=== PATIENT | female | born 1970 | race Caucasian/White ===

== ENCOUNTER 2023-03-23 13:35 | Inpatient (IN) | payer OTHER, SELFPAY ==
[2023-03-23 10:16] VITALS: BMI 35.4
[2023-03-23 10:24] VITALS: BP 130/94
--- NOTE | 2023-03-23 10:46 | ED.GENMED ---
History of Present Illness
<Bebe Cantu PA-C - Last Filed: 03/23/23 13:25>
General
Chief Complaint: Skin Problem
Source: patient
Exam Limitations: none
Time Seen by Provider: 03/23/23 10:45
Nursing documentation reviewed up to this point in time: agreed with
Travel History
Have you had any contact with someone who has COVID-19?: No
Do you have any symptoms of coronavirus? Fever > 100 degrees, chills, cough, shortness of breath, sore throat, loss of taste or smell, muscle aches, or headache?: No
History of Present Illness
History of Present Illness:
This is a 53-year-old female with a past medical history of CVA, insulin-dependent diabetes, diabetic neuropathy who presents to the emergency department today with a right foot wound the past 2 weeks. Patient has disability from previous stroke,
present with patient who provides history. states that wound started two weeks ago as a small abscess on the top surface of the foot and was originally treated with topical antibiotic cream. Mother reports that patient frequently
has been picking at the wound and dogs at home have the wound frequently. Wound has continued to progress despite topical therapy, has been here the ER doctor started Augmentin. Patient is on day 4 or 5 of Augmentin. The wound has continued to
progress and now involves the toe. There has been no drainage from the wound. Patient has no fevers or chills, and nausea or vomiting, abdominal pain, no systemic signs or symptoms. Patient does state that it is painful. Patient has had no
difficulties with ambulation. Patient does have history of lower extremity diabetic wounds in the past, for which she had to be debrided by vascular in the OR. However, upon workup, patient does not have significant vascular disease.
Past History
<Bebe Cantu PA-C - Last Filed: 03/23/23 13:25>
Past History
ED Past Medical History: Asthma, CVA, GERD, HTN, NIDDM and Other (Peptic ulcer disease, bowel obstruction, hyperparathyroidism, non healing wound LLE)
ED Past Surgical History: Appendectomy, Cholecystectomy, and Other (Lysis of adhesions, 2002 hernia repair with mesh, 2006 mesh removed,)
Patient has exhibited threatening behavior?: No
PSI?: No
Social History
Tobacco: Non-smoker
Alcohol: None
Drug: None
Personal:
Living: with family
Employment: Not employed
Family History
Family History: Other (Noncontributory)
Review of Systems
<Bebe Cantu PA-C - Last Filed: 03/23/23 13:25>
Review of Systems
All Other Systems: ROS reviewed and negative except as documented in HPI and ROS
Phy Exam
<Bebe Cantu PA-C - Last Filed: 03/23/23 13:25>
Physical Exam
Physical Exam:
Vitals: VSS
General: patient well appearing, in no acute distress
Skin: There is a 1 cm ulcerated lesion on the dorsum of the right foot with a surrounding ring of erythema extending up to the 2rd toe where there is an area of necrosis and skin breakdown in the webspace. No active drainage.
Cardiac: regular rate
Pulm: normal respiratory effort
Musculoskeletal/Periperal Vascular: No point tenderness to palpation of the lateral/medial malleolus or metatarsals of the right foot, tenderness with passive range of motion of right second toe. 2+ right DP/PT pulses. No lower extremity edema.
Neuro: awake and alert, some confusion and limited speech at baseline due to deficits from previous stroke. No new focal neurologic deficit.
Course
<Bebe Cantu PA-C - Last Filed: 03/23/23 13:25>
Orders/Labs/Results
Orders:
Orders
03/23/23 11:10
CR Foot - Right Min 3 Views Urgent
Comment:
Reason For Exam: right foot pain, rapidly progressing wound
03/23/23 11:11
Piperacillin/Tazo 3.375 Gram [Zosyn] 3.375 gram in 50 ml IV NOW
Vancomycin [Vancocin] 1,250 mg 0.9% Sodium Chloride 250 ml [Nss] 250 ml IV NOW
03/23/23 11:23
CRP [C-Reactive Protein] Stat
Complete Blood Count/With Diff Urgent
Comprehensive Metabolic Panel Urgent
ESR [Erythrocyte Sed Rate] Stat
Lactic Acid Urgent
03/23/23 11:24
Wound Culture [Wound/Abscess/Other Culture] Urgent
LEO Source: Toe
Specimen Description:
Date Specimen was Collected: 03/23/23
Time Specimen was Collected: 11:23
03/23/23 12:03
Vancomycin [Vancocin] 2,000 mg 0.9% Sodium Chloride 500 ml [Nss] 500 ml IV NOW
03/23/23 12:38
Blood Culture Q30M
LEO Source: Blood/Venous
Specimen Description:
Blood Culture Q30M
LEO Source: Blood/Venous
Specimen Description:
03/23/23 13:27
Admit/Transfer Patient As Directed
Co-Sign Provider:
Level of Care: Inpatient admission
Assign to:: Medical/Surgical
Physician / Group: xavier mcgraw
Diagnosis: diabetic wound
Reason for Hospitalization: diabectic wound
Expected length of stay greater than two midnights?: Yes
ELOS- Estimated Length of Stay in days: 3
I certify the patient meets the requirements for IP care: Yes
EKG [Electrocardiogram (*1)] Stat
Reason for Study: Atrial Fibrillation
03/23/23 13:29
Code Status As Directed
Resuscitation Status: Full Code
Abnormal Lab Results
03/23/23
11:23
Hgb 11.1 L g/dL
(12.0-16.0)
Hct 33.6 L %
(37.0-47.0)
MCV 78.0 L fL
(81.0-99.0)
MCH 25.8 L pg
(27.0-31.0)
RDW 14.6 H %
(11.5-14.5)
MPV 10.5 H fL
(7.4-10.4)
Lymphocytes % 17.0 L %
(20.5-51.1)
ESR 41 H mm/hour
(0-20)
Glucose 131 H mg/dl
(70-99)
Calcium 10.3 H mg/dl
(8.4-10.2)
C-Reactive Protein 27.50 H mg/L
(0.0-10.00)
03/23/23 11:23
03/23/23 11:23
Vital Signs
Initial and Last Documented VS:
Initial Vital Signs
Temp Pulse Resp BP Pulse Ox
98.0 F 85 16 130/94 96
03/23/23 10:24 03/23/23 10:24 03/23/23 10:24 03/23/23 10:24 03/23/23 10:24
Last Documented Vital Signs
Temp Pulse Resp BP Pulse Ox
98.0 F 85 16 130/94 96
03/23/23 10:24 03/23/23 10:24 03/23/23 10:24 03/23/23 10:24 03/23/23 10:24
<Louis Baldwin, DO - Last Filed: 03/23/23 15:15>
Orders/Labs/Results
Orders:
Orders
03/23/23 11:10
CR Foot - Right Min 3 Views Urgent
Comment:
Reason For Exam: right foot pain, rapidly progressing wound
03/23/23 11:11
Piperacillin/Tazo 3.375 Gram [Zosyn] 3.375 gram in 50 ml IV NOW
Vancomycin [Vancocin] 1,250 mg 0.9% Sodium Chloride 250 ml [Nss] 250 ml IV NOW
03/23/23 11:23
CRP [C-Reactive Protein] Stat
Complete Blood Count/With Diff Urgent
Comprehensive Metabolic Panel Urgent
ESR [Erythrocyte Sed Rate] Stat
Lactic Acid Urgent
03/23/23 11:24
Wound Culture [Wound/Abscess/Other Culture] Urgent
LEO Source: Toe
Specimen Description:
Date Specimen was Collected: 03/23/23
Time Specimen was Collected: 11:23
03/23/23 12:03
Vancomycin [Vancocin] 2,000 mg 0.9% Sodium Chloride 500 ml [Nss] 500 ml IV NOW
03/23/23 12:38
Blood Culture Q30M
LEO Source: Blood/Venous
Specimen Description:
Blood Culture Q30M
LEO Source: Blood/Venous
Specimen Description:
03/23/23 13:27
Admit/Transfer Patient As Directed
Co-Sign Provider:
Level of Care: Inpatient admission
Assign to:: Medical/Surgical
Physician / Group: xavier mcgraw
Diagnosis: diabetic wound
Reason for Hospitalization: diabectic wound
Expected length of stay greater than two midnights?: Yes
ELOS- Estimated Length of Stay in days: 3
I certify the patient meets the requirements for IP care: Yes
EKG [Electrocardiogram (*1)] Stat
Reason for Study: Atrial Fibrillation
03/23/23 13:29
Code Status As Directed
Resuscitation Status: Full Code
Abnormal Lab Results
03/23/23
11:23
Hgb 11.1 L g/dL
(12.0-16.0)
Hct 33.6 L %
(37.0-47.0)
MCV 78.0 L fL
(81.0-99.0)
MCH 25.8 L pg
(27.0-31.0)
RDW 14.6 H %
(11.5-14.5)
MPV 10.5 H fL
(7.4-10.4)
Lymphocytes % 17.0 L %
(20.5-51.1)
ESR 41 H mm/hour
(0-20)
Glucose 131 H mg/dl
(70-99)
Calcium 10.3 H mg/dl
(8.4-10.2)
C-Reactive Protein 27.50 H mg/L
(0.0-10.00)
03/23/23 11:23
03/23/23 11:23
Vital Signs
Initial and Last Documented VS:
Initial Vital Signs
Temp Pulse Resp BP Pulse Ox
98.0 F 85 16 130/94 96
03/23/23 10:24 03/23/23 10:24 03/23/23 10:24 03/23/23 10:24 03/23/23 10:24
Last Documented Vital Signs
Temp Pulse Resp BP Pulse Ox
98.0 F 85 16 130/94 96
03/23/23 10:24 03/23/23 10:24 03/23/23 10:24 03/23/23 10:24 03/23/23 10:24
<Bebe Cantu PA-C - Last Filed: 03/23/23 13:25>
MDM/Problems Addressed
Differential Diagnosis Includes:
ddx include cellulitis, diabetic ulcer, peripheral arterial disease, peripheral venous disease, osteomyletitis
MDM/Problems Addressed:
foot wound
Chronic conditions affecting care: DM, HTN and Neurological disorder (previous CVA)
Acute Exacerbation and/or Progression of Chronic Illness: DM
<Bebe Cantu PA-C - Last Filed: 03/23/23 13:25>
*Pulse Oximetry
Patient hypoxic: no
*Critical Care Note
Total Time (30-74mins, 75-104mins- exclusive of procedures): Not Applicable
Data Reviewed
Review of Other/Old Records Reveals: Records (Reviewed ER physician documentation from 05/12/2022) and Discharge Summary (Reviewed discharge summary from 03/16/2029)
Source: patient
<Bebe Cantu PA-C - Last Filed: 03/23/23 13:25>
Patient Management
Escalation/DeEscalation of care consider admission/obs:
This is a 53-year-old female with past medical history of insulin-dependent diabetes, stroke who is presenting emergency department today with right foot wound for the past 2 weeks. The wound extends to the second toe are necrotic lesions present.
The wound has been rapidly progressing despite topical antibiotics, and Augmentin. She is on day 5 of Augmentin. She has had wounds in the past on the lower extremity that have required surgical debridement. Considering wound failing outpatient
therapy, will plan to admit for IV antibiotics.
ED Attending Note
<Bebe Cantu PA-C - Last Filed: 03/23/23 13:25>
-
Portions of this chart may have been created with voice recognition software.� Occasional wrong word or��sound alike� substitutions may have occurred due to the inherent limitations of voice recognition software.
<Louis Baldwin DO - Last Filed: 03/23/23 15:15>
ED Attending Note
Patient seen and examined by attending physician: Yes
I performed the substantive portion of visit, reviewed & personally made and approve the management plan that is documented in note by myself or ANGELIA.: Yes
I performed a history and physical exam of patient and discussed management with resident, I reviewed resident's note and agree with documented findings and plan of care.: Yes
ED Attending Note:
I eval'd at bedside. Patient has had debridement with vascular surgery in the past of the left lower extremity. Today, she comes in because of comfort at the right foot/concern for infection. Her who is a physician placed her on topical
antibiotics and then has had 4 days of Augmentin. She has cellulitic changes along with a necrotic appearing right second toe dorsally. Will admit for broad-spectrum IV antibiotic diabetic foot infection.
Discharge Plan
Departure
Patient Disposition: Admit
Date of Disposition: 03/23/23
Time of Disposition: 12:01
Admit to: Med/Surg
Presentation/result/management discussed w/ accepting MD/DO: Hospitalist
Patient with high blood pressure during this ER visit?: Yes
Condition: Fair
Discharge Problem:
Diabetic foot infection
Interventions
Interventions:
*Risk Screen - Suicide Last Done: 03/23/23 11:30
*General Assessment Last Done: 03/23/23 11:30
*Neglect/Abuse Screening Last Done: 03/23/23 11:30
*ED COVID-19 Vaccine History Last Done: 03/23/23 10:24
ED-Skin Assessment Last Done: 03/23/23 11:30
[2023-03-23 11:35] LABS: % Basophils 0.8 % (0-2); % Eosinophils 3.8 % (0-6); % Immature Granulocytes 0.3 % (0-0.5); % Monocytes 8.6 % (1.7-9.3); % Neutrophils 69.5 % (42.2-75.2); Absolute Basophils 0.1 10^3/uL (0-0.2); Absolute Eosinophils 0.3 10^3/uL (0-0.7); Absolute Lymphocytes 1.3 10^3/uL (1.2-3.4); Absolute Monocytes 0.6 10^3/uL (0.1-0.6); Absolute Neutrophils 5.2 10^3/uL (1.4-6.5); Hematocrit 33.6 % (37.0-47.0); Hemoglobin 11.1 g/dL (12.0-16.0); Mean Corpuscular Hgb 25.8 pg (27.0-31.0); Mean Platelet Volume 10.5 fL (7.4-10.4); Nucleated Red Blood Cells % 0 %; Platelet Count 272 10^3/uL (130-400); Red Blood Cell Count 4.31 10^6/uL (4.20-5.40); Red Cell Dist. Width 14.6 % (11.5-14.5); White Blood Cell Count 7.5 10^3/uL (4.8-10.8)
[2023-03-23 11:45] LABS: Lactic Acid 1.3 mmol/L (0.7-2.0)
[2023-03-23 11:46] LABS: ALT (SGPT) 13 U/L (0-35); AST (SGOT) 18 U/L (14-36); Albumin 3.9 g/dl (3.5-5.0); Alkaline Phosphatase 126 U/L (38-126); Blood Urea Nitrogen 14 mg/dl (7-17); Calcium 10.3 mg/dl (8.4-10.2); Carbon Dioxide 27 mmol/L (22-30); Chloride 105 mmol/L (98-107); Glucose 131 mg/dl (70-99); Potassium 4.2 mmol/L (3.5-5.1); Sodium 137 mmol/L (135-145); Total Bilirubin 0.9 mg/dl (0.2-1.3); Total Protein 6.5 g/dl (6.3-8.2); eGFR > 60.00
[2023-03-23] MEDS: ZOSYN 50 IV ×2 (11:58→17:13)
[2023-03-23] MEDS: VANCOCIN 540 MG IV (12:40)
--- NOTE | 2023-03-23 12:56 | HPS.HSE ---
Addendum entered and electronically signed by Venkatesh Hoffman MD 03/23/23 16:10:
53-year-old female with a past medical history of paroxysmal atrial fibrillation on Eliquis, CVA with residual short-term memory loss, type 2 diabetes, hypertension, peptic ulcer disease, and hyperparathyroidism presents with worsening erythema and
swelling of her right third toe despite 4 days of Augmentin.
Patient was given Zosyn and vancomycin in the ER. Patient became red and itchy while getting the vancomycin.
Will discontinue vancomycin, give Benadryl and Pepcid. Hold off on steroids due to her probable right third toe infection.
Continue Zosyn, add doxycycline.
CRP 27.5, ESR 41, right foot x-ray negative for osteomyelitis.
Will order Seroquel and Haldol for agitation. Avoid benzos, as this will worsen her agitation.
I have personally seen and examined the patient, and agree with the plan of care as documented by MICA Roman.
Advance care planning discussed, patient is a full code.
All other issues as outlined by the advanced care practitioner.
Total time spent to see the patient on the floor, examine the patient, review data and lab results, discuss treatment plan with patient, nursing staff around 75 minutes.
Original Note:
Family Physician
-
Family Physician: Dwight Tovar
Chief Complaint
-
Right foot wound
History of Present Illness
53-year-old female with a past medical history of CVA, insulin-dependent diabetes, diabetic neuropathy, A-fib, GERD, asthma, small bowel obstruction who presents to the emergency department today with a right foot wound the past 2 weeks.� Patient
has disability from previous stroke, present with patient who provides history.� states that wound started two weeks ago as a small scab on the top surface of the foot and was originally treated with topical antibiotic cream.�patient
frequently picks on the wound. she took 4 out of 5 Augmentin. denied fever, chill, chest pain, sob. no improvement in wound.The wound has continued to progress and now involves the toe.�denied nausea or vomiting, abdominal pain. denied dysuria or
hematuria.
patient with hxt of CVA does residual with memory. she sundown's at night time. she is extremely difficult at night time.
patient imitated on abx. admitting for further management.
Medical History
Past Medical History
Past Medical History: Reports Other
Additional Past Medical History:
Asthma
CVA
GERD
Hypertension
Type 2 diabetes
Peptic ulcer disease
Small bowel obstruction
Hyperparathyroidism
Nonhealing left lower extremity wound
Atrial fibrillation
Past Surgical History: Reports Other
Additional Past Surgical History:
Appendectomy
Cholecystectomy
Lysis of adhesion
Hernia repair with mesh
Social History
Tobacco: Non-smoker
Alcohol: None
Drug: None
Personal:
Living: With Family
Family History
Family History: Not pertinent
Allergies / Home Medications
Allergies reflects when Allergies were last updated in [facility].
Home Medications with original date entered in [facility]
Allergy/Medication List:
Allergies
Allergy/AdvReac Type Severity Reaction Status Date / Time
cefuroxime Allergy Hives Verified 03/23/23 10:25
cefuroxime axetil Allergy Hives Verified 03/23/23 10:25
[From Ceftin]
cephalexin monohydrate Allergy Hives Verified 03/23/23 10:25
[From Keflex]
erythromycin base Allergy Hives Verified 03/23/23 10:25
morphine Allergy Itching Verified 03/23/23 10:25
oxycodone [From Percocet] Allergy Nausea / Verified 03/23/23 10:25
Vomiting
Home Medications
albuterol sulfate 90 mcg/actuation aerosol inhaler 2 puff inhalation R Q6HPRN PRN sob ##0 05/21/21
atorvastatin 40 mg tablet 40 mg PO QPM High cholesterol 05/21/21
metformin 1,000 mg tablet 1,000 mg PO BID@0800,1700 Diabetes 05/21/21
pantoprazole 20 mg tablet,delayed release (Protonix) 20 mg PO DAILY Gastrointestinal issue 05/21/21
duloxetine 30 mg capsule,delayed release 30 mg PO QPM Mental Health/Anxiety 10/25/21
dupilumab 300 mg/2 mL subcutaneous pen injector (Dupixent) 300 mg SC WEEKLY Lung/breathing issues 10/25/21
lisinopril 10 mg tablet 10 mg PO Daily Blood pressure 10/25/21
glipizide 5 mg tablet 5 mg PO DAILY #30 tabs 03/16/22
amoxicillin 875 mg-potassium clavulanate 125 mg tablet 1 tab PO BID 03/23/23
apixaban 5 mg tablet (Eliquis) 5 mg PO BID 03/23/23
memantine 10 mg tablet 10 mg PO QPM 03/23/23
metoprolol succinate 25 mg tablet,extended release 24 hr (Toprol XL) 25 mg PO DAILY 03/23/23
Review of Systems
-
Constitutional: Reports No Symptoms
EENT: Reports No Symptoms
Respiratory: Reports No Symptoms
Cardiac: Reports No Symptoms
Abdomen/GI: Reports No Symptoms
: Reports No Symptoms
Musculoskeletal: Reports No Symptoms
Skin: Reports Other (Right foot wound)
Neurological: Reports No Symptoms
Endocrine: Reports No Symptoms
Hematologic/Lymphatic: Reports No Symptoms
Psych: Reports No Symptoms
Physical Exam
Vital Signs
Vital Signs
Temp Pulse Resp BP Pulse Ox
98.0 F 85 16 130/94 96
03/23/23 10:24 03/23/23 10:24 03/23/23 10:24 03/23/23 10:24 03/23/23 10:24
Physical Exam
General: Well Developed, Well Nourished and No Apparent Distress
HEENT: NormoCephalic, Moist mucous membranes and Atraumatic
Respiratory: Clear
Cardiac: S1/S2 and Regular Rhythm; No Murmur or Rub
GI: Soft, Non Tender, Non Distended and Normal Bowel Sounds; No Organomegaly
Rectal: Deferred by Provider
Musculoskeletal: No Clubbing, No Cyanosis and No Edema
Skin: Rash and Other (Right foot wound to 2)
Neuro: AO x 3 and Nonfocal/grossly intact
Psych: Calm
Laboratory Results
-
03/23/23 11:23
03/23/23 11:
Laboratory Results
Lactic Acid 1.3 mmol/L (0.7-2.0) 03/23/23 11:
Total Bilirubin 0.9 mg/dl (0.2-1.3) 03/23/23 11:
AST 18 U/L (14-36) 03/23/23 11:
ALT 13 U/L (0-35) 03/23/23 11:23
Alkaline Phosphatase 126 U/L (38-126) 03/23/23 11:23
Data Reviewed
-
Lab Data: Labs Reviewed by me
Impression/Plan
-
# Diabetic foot wound
-Failed outpatient therapy
-IV Vanco and Zosyn
-Foot x-ray with Minimal osteoarthritis of interphalangeal joint of the right great toe.
-Blood and wound culture sent from ER
-Tylenol prn for fever
-obtain ESR, CRP, consider MRI if elevated inflammatory markers
-wound ostomy consulted
#Aphasia post stroke/ memory loss/sundown
-daughter will stay at the bedside
-Memantine
# GERD
-PPI continued
# PMH IDDM Diabetes
-�follow blood sugars, continue SSI
-metformin continued
-Glipizide
# Essential hypertension
-Blood pressure stable
-Lisinopril continued
#hxt of recurrent SBO - ex lap, explantation of mesh, FIORDALIZA
# History of paroxysmal A-fib A-fib
-Will obtain EKG
-Eliquis, metoprolol
# History of asthma
-Not in acute exacerbation
-Albuterol
# Hyperlipidemia
-Statin continued
# Anxiety
-Duloxetine
# DVT prophylaxis
-Eliquis
# CODE STATUS
-Full code
[2023-03-23 13:00] VITALS: BP 122/78
--- NOTE | 2023-03-23 14:09 | CM ---
Cm reviewed medical records. CM met with patient and in room. Patient has had a history of [facility] s/p CVA> Patient has also been to [facility] for Acute Rehab. Patient lives with who provides 24 hour supervision. Patient is forgetful
and requires frequent reorientation. Patient is active with her PCP> patient uses [facility] for medication services. 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 THey are declining further services at this time.
CM will continue to follow.
PLAN: Home to the care of her family.
[2023-03-23 14:40] VITALS: BP 113/73
[2023-03-23] MEDS: BENADRYL 25 MG IV (14:45)
[2023-03-23] MEDS: PEPCID 20 MG IV (14:45)
[2023-03-23 14:46] LABS: Erythrocyte Sed Rate 41 mm/hour (0-20)
[2023-03-23] MEDS: NSS (PRESERVATIVE FREE) 8 ML IV (14:46)
[2023-03-23 15:00] VITALS: BP 115/67
[2023-03-23 16:08] VITALS: BP 120/91
[2023-03-23 17:05] LABS: Glucose - Point of Care 180 mg/dl (70-99)
[2023-03-23] MEDS: LIPITOR 40 MG PO (17:12)
[2023-03-23] MEDS: SEROQUEL 50 MG PO (17:12)
[2023-03-23] MEDS: CYMBALTA DELAYED RELEASE 30 MG PO (17:12)
[2023-03-23] MEDS: NAMENDA 10 MG PO (17:12)
[2023-03-23] MEDS: GLUCOPHAGE 1000 MG PO (17:12)
[2023-03-23] MEDS: NOVOLOG FLEXPEN-LOW RESISTANCE 1 UNITS SC (17:22)
--- NOTE | 2023-03-23 18:22 | PTCARENOTE ---
Pt. received from ED at 1600. While reading pt.'s note staff on 3W acknowledged that pt. was not fit for a semi private room to due her impulsive tendencies and her daughter staying at bedside. Pt. moved from 317 bed 1 to 321 at 1800. Pt. oriented
to room and call patten within reach
[2023-03-23] MEDS: ELIQUIS 5 MG PO (19:43)
[2023-03-23] MEDS: VIBRAMYCIN 100 MG PO (19:47)
[2023-03-23] MEDS: TYLENOL 650 MG PO (19:50)
[2023-03-23 21:38] LABS: Glucose - Point of Care 160 mg/dl (70-99)
[2023-03-23 23:32] VITALS: BP 110/53
[2023-03-24] MEDS: ZOSYN 50 IV ×3 (00:47→11:25)
[2023-03-24 06:41] LABS: Hematocrit 31.2 % (37.0-47.0); Hemoglobin 10.4 g/dL (12.0-16.0); Mean Corp Hgb Conc. 33.3 g/dL (33.0-37.0); Mean Corpuscular Hgb 25.9 pg (27.0-31.0); Mean Corpuscular Volume 77.8 fL (81.0-99.0); Mean Platelet Volume 10.7 fL (7.4-10.4); Platelet Count 238 10^3/uL (130-400); Red Blood Cell Count 4.01 10^6/uL (4.20-5.40); Red Cell Dist. Width 14.8 % (11.5-14.5); White Blood Cell Count 5.6 10^3/uL (4.8-10.8)
[2023-03-24 07:00] VITALS: BP 105/65
[2023-03-24 07:07] LABS: Blood Urea Nitrogen 16 mg/dl (7-17); Carbon Dioxide 24 mmol/L (22-30); Chloride 109 mmol/L (98-107); Estimated Creatinine Clearance 57 ml/min; Glucose 148 mg/dl (70-99); Sodium 138 mmol/L (135-145); eGFR 59.34
--- NOTE | 2023-03-24 07:25 | W.PN.HOSP.TC ---
Today's Communication/Plan
-
see bold
Assessment / Plan
Assessment / Plan
53-year-old female with a past medical history of paroxysmal atrial fibrillation on Eliquis, CVA with residual short-term memory loss, type 2 diabetes, hypertension, peptic ulcer disease, and hyperparathyroidism presents with worsening erythema and
swelling of her right third toe despite 4 days of Augmentin.
Patient was given Zosyn and vancomycin in the ER.� Patient became red and itchy while getting the vancomycin.
#Right foot cellulitis
Continue Zosyn, doxycycline, consult ID, check EVON and arterial dopplers
CRP 27.5, ESR 41, right foot x-ray negative for osteomyelitis
#Sachi syndrome
Status post Pepcid and Benadryl
No more vancomycin
#Paroxysmal atrial fibrillation
Continue Eliquis, metoprolol
#History of stroke with residual aphasia, memory loss, sundowning
Continue Eliquis, statin, Namenda
Added Seroquel 50 mg every afternoon, IV Haldol as needed
#Peptic ulcer disease
Continue PPI
#Essential hypertension
Continue lisinopril metoprolol
#Type 2 diabetes
Continue glipizide, metformin
#Anxiety
Continue duloxetine
#Obesity due to excess calories
Affects all aspects of care
DVT prophylaxis�Eliquis
Full code
Total time spent to see the patient on the floor, examine the patient, review data and lab results, discuss treatment plan with patient, nursing staff around 51 minutes.
Physical Exam
General: Obese, no acute distress
HEENT: Normocephalic, Atraumatic, EOMI, MMM
Respiratory: Clear to Auscultation bilaterally
Cardiac: Normal S1/S2, Regular Rate and Rhythm
GI: Soft, Nontender, Nondistended, Normal Bowel Sounds
Extremities: No Clubbing, Cyanosis
Right third toe with healing scab, right first/second toe with diffuse edema and erythema, erythema of the dorsum also noted, although improved from admission
Neuro: Pleasantly confused
Psych: Calm, Cooperative
Anticipated Discharge: 24 - 48 hours
Subjective/Interval History
-
Date of Service: March 24, 2023
No fever.
Objective Data
-
Labs:
Laboratory Results
03/24/23
06:18
WBC 5.6
Hgb 10.4 L
Hct 31.2 L
Plt Count 238
Sodium 138
Potassium 4.0
Chloride 109 H
Carbon Dioxide 24
BUN 16
Creatinine 1.1 H
Glucose 148 H
Calcium 10.0
Vital Signs:
Vital Signs
Temp Pulse Resp BP Pulse Ox
98.2 F 72 20 110/53 95
03/23/23 23:32 03/23/23 23:32 03/23/23 23:32 03/23/23 23:32 03/23/23 23:32
I&O
03/23/23 03/24/23 03/25/23
06:59 06:59 06:59
Intake Total 480 / 480
Balance 480 / 480
[2023-03-24 07:43] LABS: Glucose - Point of Care 134 mg/dl (70-99)
[2023-03-24] MEDS: NOVOLOG FLEXPEN-LOW RESISTANCE SC ×3 (07:53→16:38)
--- NOTE | 2023-03-24 08:11 | WOUNDNOTE ---
R 2ND TOE (DORSAL)
--- NOTE | 2023-03-24 08:11 | WOUNDNOTE ---
R 2ND TOE (with photo flash)
--- NOTE | 2023-03-24 08:12 | WOUNDNOTE ---
[facility] RN note: Patient admitted with diabetic wound. Patient is cared for at home by daughter and .
See H&P for complete history.
PMH: CVA with aphasia and memory loss, DM, neuropathy, asthma, CVA, HTN, PUD, small bowel obstruction, hyperparathyroid, non healing LLE wound, hernia repair with mesh.
Wound Location and type/assessment: Patient admitted with: R dorsal 2nd toe dry necrotic brown ulcer with diffuse erythema, no drainage. Daughter stated the wound was caused by her picking. Couple dermal LLE ulcers r/t patient picking. Unable to
obtain R pedal pulse. R pedal pulse faintly heard via portable Doppler. Toes warm. Trace LE edema. Last EVON 09/22/20 R EVON .80, R toe .68; L toe pressure .43. Patient saw vascular in 2020.
Appetite: good.
Pressure redistribution devices in place: [employer] Accumax. Patient can turn self in bed.
Plan: Dry dressing applied to R 2nd toe. Silicone foam to L merlos ulcer. Heels off bed with air chair cushion.
Will confirm orders with hospitalist and updated RN Chepe.
Care plan to be updated and will follow as needed.
Recommend follow up at wound care center upon discharge.
[2023-03-24] MEDS: GLUCOTROL 5 MG PO (08:20)
[2023-03-24] MEDS: GLUCOPHAGE 1000 MG PO ×2 (08:20→17:23)
[2023-03-24] MEDS: PROTONIX 20 MG PO (08:20)
[2023-03-24] MEDS: ELIQUIS 5 MG PO ×2 (08:20→20:39)
[2023-03-24] MEDS: VIBRAMYCIN 100 MG PO ×2 (08:20→20:39)
[2023-03-24] MEDS: ZESTRIL 10 MG PO (08:23)
[2023-03-24] MEDS: TOPROL XL 25 MG PO (08:23)
--- NOTE | 2023-03-24 08:30 | WOUNDNOTE ---
[facility] RN note: Updated Dr. Hoffman re: necrotic R 2nd toe ulcer, unable to obtain R pedal pulse, toes warm, requested approval for LE arterial Doppler, suggested vascular and/or podiatry consult. Hospitalist approved LE arterial Doppler and local care.
[2023-03-24 09:18] LABS: Glycohemoglobin (HgbA1c) 7.4 % (4.0-5.6)
[2023-03-24 11:41] LABS: Glucose - Point of Care 58 mg/dl (70-99)
[2023-03-24 12:13] LABS: Glucose - Point of Care 84 mg/dl (70-99)
[2023-03-24 13:37] LABS: Glucose - Point of Care 74 mg/dl (70-99)
[2023-03-24 15:00] VITALS: BP 113/71
[2023-03-24 15:41] LABS: Glucose - Point of Care 71 mg/dl (70-99)
--- NOTE | 2023-03-24 16:26 | CON.ID ---
Consultation
-
Date/Time Consultation Requested: 03/24/2023 07:54
Date/Time Consultation Performed: 03/24/2023 1600
Requesting Provider: Dr. Hoffman
Performing Provider: Dr. Serrano
Reason for Consultation: Right foot infection
Chief Complaint / Past History
History of Present Illness
Janki Solorio is a 53-year-old female being evaluated at the request of Dr. Hoffman regarding a right second toe infection. History is obtained from chart review, along with patient interview.
The patient has a significant past medical history of CVA, along with diabetes mellitus with neuropathy. According to reviewed notes the patient developed a small wound on the right foot approximately 2 weeks ago, with a small abscess on the top
surface of the area. He was originally treated with topical antibiotic cream. Notes indicate that patient often picks at the wound and she has dogs who have elected to the wound. Despite topical therapy the wound has progressed and the patient
recently was started on Augmentin. Despite 4 - 5 days of Augmentin there has been no significant movement and the toe is now more involved. No reported drainage from the area. Patient denies any fevers or chills. She does report discomfort in
the toe, though.
Past History
Additional Past Medical History:
CVA
DM with neuropathy
Asthma
GERD
HTN
Additional Past Surgical History:
Appendectomy
Close ectomy
FIORDALIZA
Hernia repair
Allergy History:
cefuroxime Allergy (Verified 03/23/23 10:25)
Hives
cefuroxime axetil [From Ceftin] Allergy (Verified 03/23/23 10:25)
Hives
cephalexin monohydrate [From Keflex] Allergy (Verified 03/23/23 10:25)
Hives
erythromycin base Allergy (Verified 03/23/23 10:25)
Hives
morphine Allergy (Verified 03/23/23 10:25)
Itching
oxycodone [From Percocet] Allergy (Verified 03/23/23 10:25)
Nausea / Vomiting
vancomycin Allergy (Verified 03/24/23 14:39)
Itching
Medications Reviewed: Yes
Current Antibiotics:
Zosyn
Doxycycline
Social History
Tobacco: Non-Smoker
Alcohol: None
Drug: None
Personal:
Living: With Family
Review of Systems
Vital Signs
Temp Pulse Resp BP Pulse Ox
97.2 F 72 16 113/71 97
03/24/23 15:00 03/24/23 15:00 03/24/23 15:00 03/24/23 15:00 03/24/23 15:00
Physical Exam
Physical Exam
Constitutional: No Acute Distress, Comfortable, Chronically Ill and Non-toxic
Head: Normocephalic
Eyes: Pupils Equal, Pupils Round, No Conjunctival Hemorrhage and Sclera Anicteric
Oral: No Thrush and No Ulcers
Cardiovascular: S1/S2; Negative S3/S4
Pulmonary: Non Labored
Gastrointestinal: Soft, Non Tender and Non Distended
Genito-Urinary: Negative Mancini
Extremities: Negative Edema or Cyanosis
Wound: Other (right second toe with large dry crust / dry dermal gangrene. Moderate erythema in the interdigit space. No noted drainage. No significant malodor.)
Neurological: Awake and Alert
Psychological: Calm
.
Lab / Diagnostic Study Results
03/24/23 06:18
03/24/23 06:18
Abs Immat Gran (auto) 0.0 10^3/uL (0-0.05) 03/23/23 11:23
Absolute Neuts (auto) 5.2 10^3/uL (1.4-6.5) 03/23/23 11:23
Absolute Lymphs (auto) 1.3 10^3/uL (1.2-3.4) 03/23/23 11:23
Absolute Monos (auto) 0.6 10^3/uL (0.1-0.6) 03/23/23 11:23
Absolute Basos (auto) 0.1 10^3/uL (0-0.2) 03/23/23 11:23
Immature Gran % 0.3 % (0-0.5) 03/23/23 11:
Neutrophils % 69.5 % (42.2-75.2) 03/23/23 11:
Lymphocytes % 17.0 % (20.5-51.1) L 03/23/23 11:
Monocytes % 8.6 % (1.7-9.3) 03/23/23 11:
Eosinophils % 3.8 % (0-6) 03/23/23 11:23
Basophils % 0.8 % (0-2) 03/23/23 11:
ESR 41 mm/hour (0-20) H 03/23/23 11:23
Lactic Acid 1.3 mmol/L (0.7-2.0) 03/23/23 11:23
C-Reactive Protein 27.50 mg/L (0.0-10.00) H 03/23/23 11:23
Microbiology Results
Micro:
03/23/23 12:38 Blood Culture - Preliminary
Blood/Venous No Growth in 24 hours- Final report to follow
03/23/23 12:38 Blood Culture - Preliminary
Blood/Venous No Growth in 24 hours- Final report to follow
03/23/23 11:24 Wound Culture - Preliminary
Toe Staphylococcus aureus
Gram Stain - Preliminary
Imaging:
03/23/2023 x-ray right foot: No acute fracture dislocation or subluxation. Minimal joint space narrowing and mild sclerosis of the nterphalangeal joint of the right great toe consistent with osteoarthritis. No periosteal reaction or erosive changes.
Assessment / Plan
Right second toe cellulitis
DM with neuropathy
Hx CVA
Asthma
GERD
HTN
Recommendations:
Narrow Zosyn to Unasyn.
Continue with doxycycline for the present.
Await final culture data to guide antimicrobial selection and de-escalation.
Continue with local care to the area.
Although x-ray negative for osteomyelitis, osteolytic changes can take up to 2 weeks to develop. Given the extensiveness of the wound, will check MRI to follow out osteomyelitis.
[2023-03-24 16:32] LABS: Glucose - Point of Care 90 mg/dl (70-99)
[2023-03-24] MEDS: CYMBALTA DELAYED RELEASE 30 MG PO (17:23)
[2023-03-24] MEDS: SEROQUEL 50 MG PO (17:23)
[2023-03-24] MEDS: NAMENDA 10 MG PO (17:23)
[2023-03-24] MEDS: UNASYN IV ×2 (17:24→23:05)
[2023-03-24] MEDS: LIPITOR 40 MG PO (17:24)
[2023-03-24 21:07] LABS: Glucose - Point of Care 129 mg/dl (70-99)
[2023-03-24] MEDS: TYLENOL 650 MG PO (22:40)
[2023-03-24 23:03] VITALS: BP 142/60
[2023-03-25 02:19] LABS: Glucose - Point of Care 146 mg/dl (70-99)
[2023-03-25] MEDS: UNASYN IV ×4 (05:08→23:01)
[2023-03-25 07:43] LABS: Glucose - Point of Care 145 mg/dl (70-99)
[2023-03-25 08:19] VITALS: BP 109/57
[2023-03-25 08:29] LABS: Hematocrit 32.4 % (37.0-47.0); Hemoglobin 10.4 g/dL (12.0-16.0); Mean Corp Hgb Conc. 32.1 g/dL (33.0-37.0); Mean Corpuscular Hgb 25.6 pg (27.0-31.0); Mean Corpuscular Volume 79.6 fL (81.0-99.0); Mean Platelet Volume 11.1 fL (7.4-10.4); Platelet Count 256 10^3/uL (130-400); Red Blood Cell Count 4.07 10^6/uL (4.20-5.40); Red Cell Dist. Width 14.9 % (11.5-14.5); White Blood Cell Count 6.3 10^3/uL (4.8-10.8)
[2023-03-25] MEDS: NOVOLOG FLEXPEN-LOW RESISTANCE SC ×2 (08:42→16:35)
[2023-03-25 08:43] LABS: Blood Urea Nitrogen 15 mg/dl (7-17); Calcium 9.7 mg/dl (8.4-10.2); Carbon Dioxide 26 mmol/L (22-30); Chloride 108 mmol/L (98-107); Estimated Creatinine Clearance 63 ml/min; Glucose 143 mg/dl (70-99); Iron 40 ug/dl (37-170); Potassium 4.4 mmol/L (3.5-5.1); Sodium 139 mmol/L (135-145); eGFR > 60.00
[2023-03-25] MEDS: ELIQUIS 5 MG PO ×2 (08:43→20:37)
[2023-03-25] MEDS: GLUCOPHAGE 1000 MG PO (08:43)
[2023-03-25] MEDS: GLUCOTROL 2.5 MG PO (08:43)
[2023-03-25] MEDS: TOPROL XL 25 MG PO (08:44)
[2023-03-25] MEDS: VIBRAMYCIN 100 MG PO (08:44)
[2023-03-25] MEDS: PROTONIX 20 MG PO (08:44)
[2023-03-25] MEDS: ZESTRIL 10 MG PO (08:44)
[2023-03-25 08:52] LABS: Percent Saturation 11 % (20-50); Total Iron Binding Capacity 354 ug/dl (265-497)
[2023-03-25 12:28] LABS: Glucose - Point of Care 165 mg/dl (70-99)
[2023-03-25] MEDS: NOVOLOG FLEXPEN-LOW RESISTANCE 1 UNITS SC (13:11)
--- NOTE | 2023-03-25 13:26 | W.PN.HOSP.TC ---
Today's Communication/Plan
-
see bold
Assessment / Plan
Assessment / Plan
53-year-old female with a past medical history of paroxysmal atrial fibrillation on Eliquis, CVA with residual short-term memory loss, type 2 diabetes, hypertension, peptic ulcer disease, and hyperparathyroidism presents with worsening erythema and
swelling of her right third toe despite 4 days of Augmentin.
Patient was given Zosyn and vancomycin in the ER.� Patient became red and itchy while getting the vancomycin.
#Right foot cellulitis
CRP 27.5, ESR 41, right foot x-ray negative for osteomyelitis
Appreciate ID input, Zosyn changed to Unasyn, continue doxycycline
Patient for right foot MRI today
#Severe right lower extremity PVD
Continue Eliquis, statin
Consult vascular surgery
Hold metformin in case she needs studies with IV contrast
#Severe iron deficiency anemia
Start oral iron with laxative
Will discuss with family that she needs colon cancer screening if she has not had one
#Sachi syndrome
Status post Pepcid and Benadryl
No more vancomycin
#Paroxysmal atrial fibrillation
Continue Eliquis, metoprolol
#History of stroke with residual aphasia, memory loss, sundowning
Continue Eliquis, statin, Namenda
Added Seroquel 50 mg every afternoon, IV Haldol as needed
#Peptic ulcer disease
Continue PPI
#Essential hypertension
Continue lisinopril metoprolol
#Type 2 diabetes
Continue glipizide, metformin
#Anxiety
Continue duloxetine
#Obesity due to excess calories
Affects all aspects of care
DVT prophylaxis�Eliquis
Full code
Total time spent to see the patient on the floor, examine the patient, review data and lab results, discuss treatment plan with patient, nursing staff around 52 minutes.
Called on phone 03/25, he did not roll picker and voicemail box was full.
Physical Exam
General: Obese, no acute distress
HEENT: Normocephalic, Atraumatic, EOMI, MMM
Respiratory: Clear to Auscultation bilaterally
Cardiac: Normal S1/S2, Regular Rate and Rhythm
GI: Soft, Nontender, Nondistended, Normal Bowel Sounds
Extremities: No Clubbing, Cyanosis
Right third toe with healing scab, right first/second toe with diffuse edema and erythema, erythema of the dorsum also noted, although improved from admission
Neuro: Pleasantly confused
Psych: Calm, Cooperative
Anticipated Discharge: > 48 hours
Subjective/Interval History
-
Date of Service: March 25, 2023
No fever. Patient unable to provide history.
Objective Data
-
Labs:
Laboratory Results
03/25/23
07:06
WBC 6.3
Hgb 10.4 L
Hct 32.4 L
Plt Count 256
Sodium 139
Potassium 4.4
Chloride 108 H
Carbon Dioxide 26
BUN 15
Creatinine 1.0
Glucose 143 H
Calcium 9.7
Vital Signs:
Vital Signs
Temp Pulse Resp BP Pulse Ox
97.9 F 78 20 109/57 100
03/25/23 08:19 03/25/23 08:19 03/25/23 08:19 03/25/23 08:19 03/25/23 08:19
I&O
03/24/23 03/25/23 03/26/23
06:59 06:59 06:59
Intake Total 480 / 480 1530 / 1530
Balance 480 / 480 1530 / 1530
--- NOTE | 2023-03-25 15:13 | W.PN.ID1 ---
Date of Service
Date of Service: March 25, 2023
Today's Communication
Narrow to Unasyn alone. Await vascular workup.
Assessment / Plan
Right second toe cellulitis
DM with neuropathy
Hx CVA
Asthma
GERD
HTN
Recommendations:
Continue Unasyn.
D/C further doxy.
Await final culture data to guide antimicrobial selection and de-escalation.
Continue with local care to the area.
MRI without conclusive evidence of osteo
Chief Complaint
-: Cellulitis
Subjective / Review of Systems
Review of Systems: No Fever and No Chills
Vital Signs / Physical Exam
Vital Signs
Vital Signs
Temp Pulse Resp BP Pulse Ox
97.9 F 78 20 109/57 100
03/25/23 08:19 03/25/23 08:19 03/25/23 08:19 03/25/23 08:19 03/25/23 08:19
Physical Exam
Constitutional: No Acute Distress, Comfortable and Non-toxic
Eyes: Sclera Anicteric
Extremities: Edema and Erythema (improved)
Wound: Other (right second toe; dry crust)
Neurological: Awake and Alert
Objective Data
Lab Data
Lab Results
03/25/23 07:06
03/25/23 07:06
ESR 41 mm/hour (0-20) H 03/23/23 11:23
Estimated Creat Clear 63 ml/min 03/25/23 07:06
Lactic Acid 1.3 mmol/L (0.7-2.0) 03/23/23 11:23
Total Bilirubin 0.9 mg/dl (0.2-1.3) 03/23/23 11:23
AST 18 U/L (14-36) 03/23/23 11:23
ALT 13 U/L (0-35) 03/23/23 11:23
Alkaline Phosphatase 126 U/L (38-126) 03/23/23 11:23
C-Reactive Protein 27.50 mg/L (0.0-10.00) H 03/23/23 11:23
Most recent labs reviewed.
Micro Results:
03/23/23 12:38 Blood Culture - Preliminary
Blood/Venous No Growth in 48 hours- Final report to follow
03/23/23 12:38 Blood Culture - Preliminary
Blood/Venous No Growth in 48 hours- Final report to follow
03/23/23 11:24 Wound Culture - Final
Toe S aureus-Methicillin Sensitive
Gram Stain - Final
Imaging:
03/23/2023 x-ray right foot: No acute fracture dislocation or subluxation. Minimal joint space narrowing and mild sclerosis of the nterphalangeal joint of the right great toe consistent with osteoarthritis. No periosteal reaction or erosive changes.
[2023-03-25 15:45] VITALS: BP 147/74
[2023-03-25] MEDS: LIPITOR 40 MG PO (16:34)
[2023-03-25] MEDS: NAMENDA 10 MG PO (16:35)
[2023-03-25] MEDS: CYMBALTA DELAYED RELEASE 30 MG PO ×2 (16:35)
[2023-03-25] MEDS: SEROQUEL 50 MG PO (16:35)
[2023-03-25 16:36] LABS: Glucose - Point of Care 79 mg/dl (70-99)
--- NOTE | 2023-03-25 18:06 | PTCARENOTE ---
PT with acute onset of loud crying. when i came to patients side she denied pain and said she was stuck and needed repositioning. I repositoned her and she is now smiling finishing her diner
[2023-03-25] MEDS: TYLENOL 650 MG PO (20:37)
[2023-03-25 21:44] LABS: Glucose - Point of Care 233 mg/dl (70-99)
[2023-03-25] MEDS: FLUSH (NSS) 2 FLUSH IV (23:01)
[2023-03-25 23:28] VITALS: BP 116/52
[2023-03-26] MEDS: FLUSH (NSS) 2 FLUSH IV (06:11)
[2023-03-26] MEDS: UNASYN IV ×4 (06:11→23:34)
[2023-03-26 07:44] LABS: Hematocrit 33.8 % (37.0-47.0); Hemoglobin 10.8 g/dL (12.0-16.0); Mean Corpuscular Hgb 25.7 pg (27.0-31.0); Mean Corpuscular Volume 80.5 fL (81.0-99.0); Mean Platelet Volume 10.8 fL (7.4-10.4); Platelet Count 265 10^3/uL (130-400); Red Cell Dist. Width 14.6 % (11.5-14.5); White Blood Cell Count 6.1 10^3/uL (4.8-10.8)
[2023-03-26 07:49] VITALS: BP 121/58
[2023-03-26 07:57] LABS: Blood Urea Nitrogen 16 mg/dl (7-17); Calcium 9.8 mg/dl (8.4-10.2); Carbon Dioxide 28 mmol/L (22-30); Chloride 105 mmol/L (98-107); Estimated Creatinine Clearance 79 ml/min; Glucose 195 mg/dl (70-99); Potassium 4.2 mmol/L (3.5-5.1); Sodium 137 mmol/L (135-145); eGFR > 60.00
[2023-03-26 08:04] LABS: Glucose - Point of Care 165 mg/dl (70-99)
--- NOTE | 2023-03-26 08:09 | CON.VAS ---
Consultation
Consultation Request
Date/Time Consultation Performed: 03/26/2023
Performing Provider: MD Chilango
Reason for Consultation: R foot wound
Medical History
-
Chief Complaint: R 2nd toe wound
History of Present Illness:
R 2nd toe wound
nonhealing x 2 weeks
Had course of PO ABx with no improvement
No previous vascular interventions
No reported history of rest pain or claudication
Noninvasive vascular studies reviewed by me with R toe pressure zero.
Previous CVA with memory issues, so history was limited
DM, HTN, DLP
Past Medical History
Past Medical History: Arrhythmias, Asthma, CVA, HTN, Hypercholesterolemia, NIDDM and Other (hyperparathyroid, reflux/PUD)
Past Surgical History: Appendectomy and Other (SBO with FIORDALIZA)
Family History
Family History: Reviewed & Not Pertinent
Allergies / Home Medications
Allergy/AdvReac Type Severity Reaction Status Date / Time
cefuroxime Allergy Hives Verified 03/23/23 10:25
cefuroxime axetil Allergy Hives Verified 03/23/23 10:25
[From Ceftin]
cephalexin monohydrate Allergy Hives Verified 03/23/23 10:25
[From Keflex]
erythromycin base Allergy Hives Verified 03/23/23 10:25
morphine Allergy Itching Verified 03/23/23 10:25
oxycodone [From Percocet] Allergy Nausea / Verified 03/23/23 10:25
Vomiting
vancomycin Allergy Itching Verified 03/24/23 14:39
Medication Instructions Recorded Confirmed Type
albuterol sulfate 90 mcg/actuation 2 puff inhalation R Q6HPRN PRN sob 05/21/21 03/23/23 History
aerosol inhaler ##0
atorvastatin 40 mg tablet 40 mg PO QPM High cholesterol 05/21/21 03/23/23 History
metformin 1,000 mg tablet 1,000 mg PO BID@0800,1700 Diabetes 05/21/21 03/23/23 History
pantoprazole 20 mg tablet,delayed 20 mg PO DAILY Gastrointestinal 05/21/21 03/23/23 History
release (Protonix) issue
duloxetine 30 mg capsule,delayed 30 mg PO QPM Mental Health/Anxiety 10/25/21 03/23/23 History
release
dupilumab 300 mg/2 mL subcutaneous 300 mg SC WEEKLY Lung/breathing 10/25/21 03/23/23 History
pen injector (Dupixent) issues
lisinopril 10 mg tablet 10 mg PO Daily Blood pressure 10/25/21 03/23/23 History
glipizide 5 mg tablet 5 mg PO DAILY #30 tabs 03/16/22 03/23/23 Rx
amoxicillin 875 mg-potassium 1 tab PO BID 03/23/23 03/23/23 History
clavulanate 125 mg tablet
apixaban 5 mg tablet (Eliquis) 5 mg PO BID 03/23/23 03/23/23 History
memantine 10 mg tablet 10 mg PO QPM 03/23/23 03/23/23 History
metoprolol succinate 25 mg 25 mg PO DAILY 03/23/23 03/23/23 History
tablet,extended release 24 hr
(Toprol XL)
Review of Systems
-
History Source: Patient
All other systems: Negative unless noted
Physical Exam
Vital Signs
Temp Pulse Resp BP Pulse Ox
98.6 F 76 17 121/58 95
03/26/23 07:49 03/26/23 07:49 03/26/23 07:49 03/26/23 07:49 03/26/23 07:49
Lab Results
03/26/23 06:56
03/26/23 06:56
Physical Exam
General: Well Developed, Well Nourished and No Apparent Distress
HEENT: Normocephalic and Anicteric
Respiratory: Clear
Cardiac: S1/S2 and Other (monophasic R AT, no PT or DP; MP L AT/PT. Could not palpate femorals due to habitus and positioning)
GI: Soft and Non Tender
Skin: Warm, Dry and Other (R 2nd toe with eschar to toe with surrounding erythema, no edema, no drainage; left anterior merlos with superficial scab)
Neuro: Awake and Alert
Psych: Calm
Assessment / Plan
-
53F with R 2nd toe wound and severe PAD.
- NPO at midnight Monday for angiogram monday
- ABx per ID
- recommend podiatry involvement
Data Reviewed
-
Ultrasound: Image Personally Visualized and interpreted
Labs: Labs Reviewed by me
--- NOTE | 2023-03-26 08:44 | W.PN.HOSP.TC ---
Today's Communication/Plan
-
see bold
Assessment / Plan
Assessment / Plan
53-year-old female with a past medical history of paroxysmal atrial fibrillation on Eliquis, CVA with residual short-term memory loss, type 2 diabetes, hypertension, peptic ulcer disease, and hyperparathyroidism presents with worsening erythema and
swelling of her right third toe despite 4 days of Augmentin.
Patient was given Zosyn and vancomycin in the ER.� Patient became red and itchy while getting the vancomycin.
#Right foot cellulitis
CRP 27.5, ESR 41, right foot x-ray negative for osteomyelitis
Appreciate ID input, Zosyn changed to Unasyn, continue doxycycline
MRI not convincing for osteomyelitis
Trend fever and WBC
#Severe right lower extremity PVD
Continue Eliquis, statin
Hold metformin
Seen by vascular surg, for right lower extremity arteriogram tomorrow
#Severe iron deficiency anemia
Started oral iron with with vitamin C
Recommend outpatient colon cancer screening
#Sachi syndrome
Status post Pepcid and Benadryl
No more vancomycin
#Paroxysmal atrial fibrillation
Continue Eliquis, metoprolol
#History of stroke with residual aphasia, memory loss,
Continue Eliquis, statin, Namenda
Added Seroquel 50 mg every afternoon, IV Haldol as needed
#Peptic ulcer disease
Continue PPI
#Essential hypertension
Continue lisinopril metoprolol
#Type 2 diabetes
Continue glipizide, metformin
#Anxiety
Continue duloxetine
#Obesity due to excess calories
Affects all aspects of care
DVT prophylaxis�Eliquis
Full code
Called on phone 03/25, he did not nut picker and voicemail box was full
Updated daughter at bedside 03/26
Physical Exam
General: Obese, no acute distress
HEENT: Normocephalic, Atraumatic, EOMI, MMM
Respiratory: Clear to Auscultation bilaterally
Cardiac: Normal S1/S2, Regular Rate and Rhythm
GI: Soft, Nontender, Nondistended, Normal Bowel Sounds
Extremities: No Clubbing, Cyanosis
Right third toe with healing scab, right first/second toe with diffuse edema and erythema, erythema of the dorsum also noted, although improved from admission
Neuro: Pleasantly confused
Psych: Calm, Cooperative
Anticipated Discharge: 24 - 48 hours
Subjective/Interval History
-
Date of Service: March 26, 2023
No acute changes. No fever.
Objective Data
-
Labs:
Laboratory Results
03/26/23
06:56
WBC 6.1
Hgb 10.8 L
Hct 33.8 L
Plt Count 265
Sodium 137
Potassium 4.2
Chloride 105
Carbon Dioxide 28
BUN 16
Creatinine 0.8
Glucose 195 H
Calcium 9.8
Vital Signs:
Vital Signs
Temp Pulse Resp BP Pulse Ox
98.6 F 76 17 121/58 95
03/26/23 07:49 03/26/23 07:49 03/26/23 07:49 03/26/23 07:49 03/26/23 07:49
I&O
03/25/23 03/26/23 03/27/23
06:59 06:59 06:59
Intake Total 1530 / 1530 800 / 800
Balance 1530 / 1530 800 / 800
[2023-03-26] MEDS: GLUCOTROL 2.5 MG PO (08:55)
[2023-03-26] MEDS: NOVOLOG FLEXPEN-LOW RESISTANCE 1 UNITS SC ×2 (08:55→13:29)
[2023-03-26] MEDS: PROTONIX 20 MG PO (08:56)
[2023-03-26] MEDS: ELIQUIS 5 MG PO ×2 (08:56→20:33)
[2023-03-26] MEDS: TOPROL XL 25 MG PO (08:56)
[2023-03-26] MEDS: ZESTRIL 10 MG PO (08:58)
--- NOTE | 2023-03-26 11:22 | PTCARENOTE ---
pt made multiple attempts to get OOB by self. she scooted out of bed over the side rale , bed alarm going off and i found her already standing. I instructed her and reminded her that she needs to call for a nurse before she gets OOB / She said
sorry with mumble. Pt assisted into bathroom and instructed to call patten when done. No family at bedside this am, pt is on high fall risk, yellow braclet on door and on arm. this nurse was considering a continuous remote monitoring for patient
however, daughter came in . Since the daughter arrived, pt has made zero attempts to get out of bed. Pt now resting.
[2023-03-26 12:02] LABS: Glucose - Point of Care 192 mg/dl (70-99)
[2023-03-26] MEDS: FEOSOL 325 MG PO (13:29)
[2023-03-26] MEDS: VITAMIN C 500 MG PO (13:32)
--- NOTE | 2023-03-26 14:40 | PTCARENOTE ---
PT jumped out of bed again, no family in the room and was unsafe as she jumps over bed rail. PT leans heavy onto the right side so the right bed rails need to be up for safety. Pt now on continuous remote monitoring to assist with improved
safety. Yellow bracet on, bed alarm on and functioning, yellow alarm sign on at door. I spoke with ARCHITECTURE ANALYST. together we agreed that she needs very frequent assessment of her urinary status. we will be doing bi hourly rounding to see if she needs to
void. SO far, this patient has denied needing to go to bathroom. PT just ate lunch and is now sleeping. Daughter called and stated she would be her in one hour.
[2023-03-26 15:00] VITALS: BP 128/63
[2023-03-26 17:21] LABS: Glucose - Point of Care 112 mg/dl (70-99)
[2023-03-26] MEDS: NOVOLOG FLEXPEN-LOW RESISTANCE SC (17:38)
[2023-03-26] MEDS: SEROQUEL 50 MG PO (17:39)
[2023-03-26] MEDS: LIPITOR 40 MG PO (17:39)
[2023-03-26] MEDS: NAMENDA 10 MG PO (17:39)
[2023-03-26 21:42] LABS: Glucose - Point of Care 204 mg/dl (70-99)
[2023-03-26 23:09] VITALS: BP 128/57
[2023-03-27 03:32] VITALS: BP 96/53
[2023-03-27] MEDS: UNASYN IV ×4 (05:44→23:27)
[2023-03-27 06:23] LABS: Hematocrit 31.3 % (37.0-47.0); Hemoglobin 10.1 g/dL (12.0-16.0); Mean Corp Hgb Conc. 32.3 g/dL (33.0-37.0); Mean Corpuscular Hgb 25.3 pg (27.0-31.0); Mean Corpuscular Volume 78.3 fL (81.0-99.0); Mean Platelet Volume 10.4 fL (7.4-10.4); Platelet Count 246 10^3/uL (130-400); Red Cell Dist. Width 14.6 % (11.5-14.5)
[2023-03-27 07:41] LABS: Blood Urea Nitrogen 13 mg/dl (7-17); Calcium 10.2 mg/dl (8.4-10.2); Carbon Dioxide 27 mmol/L (22-30); Chloride 105 mmol/L (98-107); Estimated Creatinine Clearance 90 ml/min; Glucose 146 mg/dl (70-99); Sodium 140 mmol/L (135-145); eGFR > 60.00
[2023-03-27 07:49] VITALS: BP 112/63
[2023-03-27 07:56] LABS: Glucose - Point of Care 128 mg/dl (70-99)
--- NOTE | 2023-03-27 08:44 | W.PN.VS ---
Addendum entered and electronically signed by Jose Guadalupe Mancini III, MD 03/27/23 16:42:
This patient was seen and examined with MICA Victor. I agree with the history and physical exam as well as the assessment and plan. I have the following additions:
OR tomorrow for arteriogram and possible endovascular intervention. Technical aspects of this procedure were discussed with the patient and son at bedside. Benefits and rationale for this approach were discussed with him in detail. Operative
risks were discussed with them in detail including but not limited to bleeding, arterial access site injury, contrast nephropathy, distal embolization, inability to successfully complete endovascular intervention and possibility of needing open
revascularization.
They expressed a clear understanding of our conversation and agreed to proceed with surgery as detailed.
Planning for OR 03/28/23. Hold anticoagulation
Signed:
Jose Guadalupe Mancini III, MD
[facility]
[phone] ([facility])
Original Note:
Today's Communication / Plan
-
Seen and assessed with Dr Mancini
Assessment/Plan
-
53 yo female with nonhealing right 2nd toe wound
Plan:
-NPO after midnight for OR tomorrow for Agram
Subjective Data
-
Date of Service: March 27, 2023
Pt seen at bedside this am with Dr Mancini. Son present at bedside. Pt offers no complaints at this time.
Objective Data
-
Vital Signs
Temp Pulse Resp BP Pulse Ox
98 F 73 16 112/63 97
03/27/23 07:49 03/27/23 07:49 03/27/23 07:49 03/27/23 07:49 03/27/23 07:49
Intake and Output
03/26/23 03/27/23 03/28/23
06:59 06:59 06:59
Intake Total 800 / 800 1440 / 1440
Balance 800 / 800 1440 / 1440
Intake:
Oral fluids 440 / 440 1200 / 1200
IV piggybacks 360 / 360 240 / 240
Other:
Number of approximated MODERATE 1 3
amounts of urine
Lab Results
03/27/23 06:02
03/27/23 06:02
Calcium 10.2 mg/dl (8.4-10.2) 03/27/23 06:02
Total Bilirubin 0.9 mg/dl (0.2-1.3) 03/23/23 11:23
AST 18 U/L (14-36) 03/23/23 11:23
ALT 13 U/L (0-35) 03/23/23 11:23
Alkaline Phosphatase 126 U/L (38-126) 03/23/23 11:23
Total Protein 6.5 g/dl (6.3-8.2) 03/23/23 11:23
Albumin 3.9 g/dl (3.5-5.0) 03/23/23 11:23
Physical Exam
-
Awake, alert
No tachypnea
Abd soft
Distal pulses nonpalpable.
BL feet warm
Wounds unchanged from last wound care note image.
[2023-03-27] MEDS: GLUCOTROL 2.5 MG PO (08:45)
[2023-03-27] MEDS: NOVOLOG FLEXPEN-LOW RESISTANCE SC ×3 (08:45→17:30)
[2023-03-27] MEDS: ELIQUIS 5 MG PO (08:45)
[2023-03-27] MEDS: TOPROL XL 25 MG PO (08:45)
[2023-03-27] MEDS: ZESTRIL 10 MG PO (08:45)
[2023-03-27] MEDS: PROTONIX 20 MG PO (08:45)
--- NOTE | 2023-03-27 10:10 | W.PN.HOSP.TC ---
Today's Communication/Plan
-
NPO after MN anigram tomorrow
IV Unasyn
Assessment / Plan
Assessment / Plan
53-year-old female with a past medical history of paroxysmal atrial fibrillation on Eliquis, CVA with residual short-term memory loss, type 2 diabetes, hypertension, peptic ulcer disease, and hyperparathyroidism presents with worsening erythema and
swelling of her right third toe despite 4 days of Augmentin.
Patient was given Zosyn and vancomycin in the ER.� Patient became red and itchy while getting the vancomycin.
#Right foot cellulitis
CRP 27.5, ESR 41, right foot x-ray negative for osteomyelitis
Appreciate ID input, Zosyn changed to Unasyn
Doxycycline stopped
MRI not convincing for osteomyelitis
Trend fever and WBC
#Severe right lower extremity PVD
Continue Eliquis, statin
Hold metformin
Seen by vascular surg, for right lower extremity arteriogram tomorrow
#Severe iron deficiency anemia
Started oral iron with with vitamin C
Recommend outpatient colon cancer screening
#Sachi syndrome
Status post Pepcid and Benadryl
No more vancomycin
#Paroxysmal atrial fibrillation
Continue Eliquis, metoprolol
#History of stroke with residual aphasia, memory loss, sundowning
Continue Eliquis, statin, Namenda
Added Seroquel 50 mg every afternoon, IV Haldol as needed
#Peptic ulcer disease
Continue PPI
#Essential hypertension
Continue lisinopril metoprolol
#Type 2 diabetes
Continue glipizide, metformin
#Anxiety
Continue duloxetine
#Obesity due to excess calories
Affects all aspects of care
DVT prophylaxis�Eliquis
Full code
Called on phone 03/25, he did not sweet pickled fruit maker and voicemail box was full
Updated daughter at bedside 03/26
Physical Exam
General: Obese, no acute distress
HEENT: Normocephalic, Atraumatic, EOMI, MMM
Respiratory: Clear to Auscultation bilaterally
Cardiac: Normal S1/S2, Regular Rate and Rhythm
GI: Soft, Nontender, Nondistended, Normal Bowel Sounds
Extremities: No Clubbing, Cyanosis
Right third toe with healing scab, right first/second toe with diffuse edema and erythema, erythema of the dorsum also noted, although improved from admission
Neuro: Pleasantly confused
Psych: Calm, Cooperative
Anticipated Discharge: 24 - 48 hours
Subjective/Interval History
-
Date of Service: March 27, 2023
no new complaints
pain controlled
Objective Data
-
Labs:
Laboratory Results
03/27/23
06:02
WBC 6.0
Hgb 10.1 L
Hct 31.3 L
Plt Count 246
Sodium 140
Potassium 4.0
Chloride 105
Carbon Dioxide 27
BUN 13
Creatinine 0.7
Glucose 146 H
Calcium 10.2
Vital Signs:
Vital Signs
Temp Pulse Resp BP Pulse Ox
98 F 73 16 112/63 97
03/27/23 07:49 03/27/23 08:45 03/27/23 07:49 03/27/23 08:45 03/27/23 07:49
I&O
03/26/23 03/27/23 03/28/23
06:59 06:59 06:59
Intake Total 800 / 800 1440 / 1440
Balance 800 / 800 1440 / 1440
Review of Systems
-
History Source: Patient
All other systems: Reviewed and negative
Physical Exam
-
General: No Apparent Distress
HEENT: Normocephalic and Atraumatic
Respiratory: Clear to Auscultation; Negative Wheezes
Cardiac: Regular Rhythm and S1/S2
Breast: Deferred by me
GI: Soft, Nontender, Nondistended and Other (midline dressing clean and dry, small amt of blood on dressing unchanged in 2 days )
Rectal: Deferred by Provider
Genito-urinary: Deferred by me
Musculoskeletal: No Clubbing, No Cyanosis and No Edema
Skin: Warm
Neuro: Awake
Psych: Calm
Data Reviewed
-
Diagnostic Radiology: Report Reviewed by me
Labs: Labs Reviewed by me
--- NOTE | 2023-03-27 10:32 | W.PN.ID1 ---
Date of Service
Date of Service: March 27, 2023
Today's Communication
Continue antibiotics.
Assessment / Plan
Right second toe cellulitis
- improved.
- cultures with MSSA
PAD
- for angiography today.
DM with neuropathy
Hx CVA
Asthma
GERD
HTN
Recommendations:
Continue Unasyn.
May be able to transition to oral Augmentin in the next 24 to 48 hours.
For angiography today.
Continue with local care to the area.
MRI without conclusive evidence of osteo
����������������������������������������������������������
Chief Complaint
-: Cellulitis
Subjective / Review of Systems
Review of Systems: No Fever and No Chills
Vital Signs / Physical Exam
Vital Signs
Vital Signs
Temp Pulse Resp BP Pulse Ox
98 F 73 16 112/63 97
03/27/23 07:49 03/27/23 08:45 03/27/23 07:49 03/27/23 08:45 03/27/23 07:49
Physical Exam
Constitutional: No Acute Distress, Comfortable and Non-toxic
Pulmonary: Non Labored
Wound: Other (right 2nd toe with small amt of macreration in 2-3 interdigit space. Little to no erythema extending up foot.)
Neurological: Awake
Psychological: Calm
Objective Data
Lab Data
Lab Results
03/27/23 06:02
03/27/23 06:02
ESR 41 mm/hour (0-20) H 03/23/23 11:23
Estimated Creat Clear 90 ml/min 03/27/23 06:02
Lactic Acid 1.3 mmol/L (0.7-2.0) 03/23/23 11:23
Total Bilirubin 0.9 mg/dl (0.2-1.3) 03/23/23 11:23
AST 18 U/L (14-36) 03/23/23 11:23
ALT 13 U/L (0-35) 03/23/23 11:23
Alkaline Phosphatase 126 U/L (38-126) 03/23/23 11:23
C-Reactive Protein 27.50 mg/L (0.0-10.00) H 03/23/23 11:23
Most recent labs reviewed.
Micro Results:
03/23/23 12:38 Blood Culture - Preliminary
Blood/Venous No Growth in 72 hours- Final report to follow
03/23/23 12:38 Blood Culture - Preliminary
Blood/Venous No Growth in 72 hours- Final report to follow
03/23/23 11:24 Wound Culture - Final
Toe S aureus-Methicillin Sensitive
Gram Stain - Final
Imaging:
03/23/2023 x-ray right foot: No acute fracture dislocation or subluxation. Minimal joint space narrowing and mild sclerosis of the nterphalangeal joint of the right great toe consistent with osteoarthritis. No periosteal reaction or erosive changes.
--- NOTE | 2023-03-27 10:55 | CM ---
Reviewed chart, patient continues be impulsive per nursing staff. Per notes, patient's family able to handle the scope of patient's needs. Per PT no skilled PT needed.
Plan: Case management will continue to follow and assist with discharge planning. Tentative home with supportive family.
[2023-03-27 11:49] LABS: Glucose - Point of Care 77 mg/dl (70-99)
[2023-03-27] MEDS: VITAMIN C 500 MG PO (12:24)
[2023-03-27] MEDS: FEOSOL 325 MG PO (12:24)
[2023-03-27 16:24] VITALS: BP 121/69
[2023-03-27] MEDS: CYMBALTA DELAYED RELEASE 30 MG PO (17:29)
[2023-03-27] MEDS: LIPITOR 40 MG PO (17:29)
[2023-03-27] MEDS: SEROQUEL 50 MG PO (17:29)
[2023-03-27] MEDS: NAMENDA 10 MG PO (17:29)
[2023-03-27 17:36] LABS: Glucose - Point of Care 93 mg/dl (70-99)
[2023-03-27 17:38] LABS: Transferrin 259 mg/dL (200-360)
[2023-03-27 19:35] VITALS: BP 151/79
[2023-03-27 22:00] LABS: Glucose - Point of Care 179 mg/dl (70-99)
[2023-03-27 23:35] VITALS: BP 155/80
[2023-03-28] VITALS (17 sets, daily range): BP systolic 96–178; BP diastolic 55–148
[2023-03-28] MEDS: UNASYN IV ×4 (05:51→23:13)
[2023-03-28 06:50] LABS: Hematocrit 32.1 % (37.0-47.0); Hemoglobin 10.4 g/dL (12.0-16.0); Mean Corp Hgb Conc. 32.4 g/dL (33.0-37.0); Mean Corpuscular Hgb 25.4 pg (27.0-31.0); Mean Corpuscular Volume 78.3 fL (81.0-99.0); Mean Platelet Volume 10.7 fL (7.4-10.4); Platelet Count 241 10^3/uL (130-400); Red Cell Dist. Width 14.6 % (11.5-14.5); White Blood Cell Count 6.1 10^3/uL (4.8-10.8)
[2023-03-28 06:55] LABS: Glucose - Point of Care 142 mg/dl (70-99)
[2023-03-28 06:57] LABS: Blood Urea Nitrogen 11 mg/dl (7-17); Calcium 10.2 mg/dl (8.4-10.2); Carbon Dioxide 28 mmol/L (22-30); Chloride 103 mmol/L (98-107); Estimated Creatinine Clearance 79 ml/min; Glucose 177 mg/dl (70-99); Potassium 4.1 mmol/L (3.5-5.1); Sodium 138 mmol/L (135-145); eGFR > 60.00
[2023-03-28] MEDS: NOVOLOG FLEXPEN-LOW RESISTANCE SC ×3 (08:19→20:30)
[2023-03-28] MEDS: GLUCOTROL 2.5 MG PO (08:19)
[2023-03-28] MEDS: PROTONIX 20 MG PO (08:20)
[2023-03-28] MEDS: TOPROL XL 25 MG PO (08:20)
[2023-03-28] MEDS: ZESTRIL 10 MG PO (08:33)
--- NOTE | 2023-03-28 09:42 | W.PN.HOSP.TC ---
Today's Communication/Plan
-
NPO for angiogram today
Assessment / Plan
Assessment / Plan
53-year-old female with a past medical history of paroxysmal atrial fibrillation on Eliquis, CVA with residual short-term memory loss, type 2 diabetes, hypertension, peptic ulcer disease, and hyperparathyroidism presents with worsening erythema and
swelling of her right third toe despite 4 days of Augmentin.
Patient was given Zosyn and vancomycin in the ER.� Patient became red and itchy while getting the vancomycin.
#Right foot cellulitis
CRP 27.5, ESR 41, right foot x-ray negative for osteomyelitis
Appreciate ID input, Zosyn changed to Unasyn
Doxycycline stopped
MRI not convincing for osteomyelitis
Trend fever and WBC
#Severe right lower extremity PVD
Continue Eliquis, statin
Hold metformin
Seen by vascular surg, for right lower extremity arteriogram today, eliquis held
#Severe iron deficiency anemia
Started oral iron with with vitamin C
Recommend outpatient colon cancer screening
#Sachi syndrome
Status post Pepcid and Benadryl
No more vancomycin
#Paroxysmal atrial fibrillation
Continue Eliquis, metoprolol
#History of stroke with residual aphasia, memory loss, sundowning
Continue Eliquis, statin, Namenda
Added Seroquel 50 mg every afternoon, IV Haldol as needed --> change to 25 given morning drowsiness
#Peptic ulcer disease
Continue PPI
#Essential hypertension
Continue lisinopril metoprolol
#Type 2 diabetes
Continue glipizide, hold metformin
#Anxiety
Continue duloxetine
#Obesity due to excess calories
Affects all aspects of care
DVT prophylaxis�Eliquis
Full code
Called on phone 03/25, he did not cook pickled meat and voicemail box was full
Updated daughter at bedside 03/26
Anticipated Discharge: 24 - 48 hours
Subjective/Interval History
-
Date of Service: March 28, 2023
no new complaints
feels ready for angiogram
no pain
Objective Data
-
Labs:
Laboratory Results
03/28/23
05:57
WBC 6.1
Hgb 10.4 L
Hct 32.1 L
Plt Count 241
Sodium 138
Potassium 4.1
Chloride 103
Carbon Dioxide 28
BUN 11
Creatinine 0.8
Glucose 177 H
Calcium 10.2
Vital Signs:
Vital Signs
Temp Pulse Resp BP Pulse Ox
97.4 F 80 18 178/148 97
03/28/23 07:34 03/28/23 07:34 03/28/23 07:34 03/28/23 07:34 03/28/23 07:34
I&O
03/27/23 03/28/23 03/29/23
06:59 06:59 06:59
Intake Total 1440 / 1440 1440 / 1440
Balance 1440 / 1440 1440 / 1440
Review of Systems
-
History Source: Patient
All other systems: Reviewed and negative
Physical Exam
-
General: No Apparent Distress
HEENT: Normocephalic and Atraumatic
Respiratory: Clear to Auscultation; Negative Wheezes
Cardiac: Regular Rhythm and S1/S2
Breast: Deferred by me
GI: Soft, Nontender, Nondistended and Other (midline dressing clean and dry )
Rectal: Deferred by Provider
Genito-urinary: Deferred by me
Musculoskeletal: No Clubbing, No Cyanosis and No Edema
Skin: Warm
Neuro: Awake
Psych: Calm
Data Reviewed
-
Diagnostic Radiology: Report Reviewed by me
Labs: Labs Reviewed by me
[2023-03-28] MEDS: FEOSOL 325 MG PO (11:29)
[2023-03-28] MEDS: VITAMIN C 500 MG PO (11:29)
[2023-03-28 12:02] LABS: Glucose - Point of Care 108 mg/dl (70-99)
--- NOTE | 2023-03-28 15:02 | W.SUR.PREOP ---
Pre-Operative Surgical Note
-
I have examined this patient prior to the performance of the scheduled procedure.
The patient's condition is unchanged from the time of the current History and
Physical and the patient is able to undergo the scheduled procedure.
--- NOTE | 2023-03-28 18:19 | OR.RPT ---
Operative Report
Operative Report
Date of Operation: 03/28/2023
Pre Op Diagnosis: Critical limb threatening ischemia of the right lower extremity manifested by nonhealing toe ulcer
Post Op Diagnosis: Critical limb threatening ischemia of the right lower extremity manifested by nonhealing toe ulcer
Procedure:
1.) Balloon angioplasty and drug-eluting stent placement to the right superficial femoral artery/popliteal artery (6 mm x 120 mm Zilver PTX)
2.) Diagnostic aortobiiliac arteriogram
3.) Diagnostic right lower extremity arteriogram
4.) Ultrasound-guided percutaneous access to the left common femoral artery
Surgeon: Jose Guadalupe Mancini III, MD
Multimedia Editor: Tomasz Lieberman MD PGY-1
Anesthesia: Sedation with local
Fluoroscopy:
16.8 min
112 mGy
40.12 Gy.cm2
Complications: None
Estimated Blood Loss: None
History and Indications for Procedure: 53-year-old female with critical limb threatening ischemia of the right lower extremity manifested by nonhealing toe ulcer
Procedure in Detail: Janki Solorio was correctly identified and placed supine on the operating table. After adequate induction of anesthesia the bilateral groins were prepped and draped in the usual sterile fashion. A timeout was performed with the
nursing and anesthesia staff confirming the patient's identity as well as the nature and laterality of the procedure.
The left common femoral artery was identified under ultrasound guidance. The artery was patent. The superior and inferior aspects of the femoral head were identified with radiographic guidance and marked at the skin level. The proposed puncture site
was infiltrated with local anesthesia. We saved a copy of the ultrasound image to the medical record. Under ultrasound guidance we accessed the left common femoral artery with a micropuncture needle and upsized to a 5 Fr sheath over a Bentson wire.
The wire and a Shephertheeventwall hook flush catheter were advanced into the distal abdominal aorta and a diagnostic aorto-biiliac arteriogram was performed:
AORTO-ILIAC ARTERIOGRAM:
Aorta: Patent with no stenosis identified
Right common iliac artery: Patent with no stenosis identified
Right external iliac artery: Patent with no stenosis identified
Left common iliac artery: Patent with no stenosis identified
Left external iliac artery: Patent with no stenosis identified
Under roadmap guidance using a Glidewire and the SheNeurotron Biotechnologyertheeventwall hook catheter we selected the right common iliac artery and then the external iliac artery. A catheter was tracked up and over the aortic bifurcation and placed in the distal external iliac
artery. A diagnostic right lower extremity arteriogram was then performed which demonstrated the following:
RIGHT LOWER EXTREMITY:
Common femoral artery: Patent with no stenosis identified
Profunda femoral artery: Patent with no stenosis identified
Superficial femoral artery: Patent with no stenosis identified in the proximal and mid segments. Focal occlusion identified at the transition from the distal superficial femoral artery to the above-knee popliteal artery
Popliteal artery: Patent. Moderate degrees of stenosis identified above and behind the knee. Below the knee patent with no stenosis identified
Tibial artery runoff was difficult to visualize due to patient movement however it appeared that the anterior tibial and peroneal arteries were patent with flow into the foot via the dorsalis pedis.
ENDOVASCULAR INTERVENTION:
Systemic heparin was administered. Exchanged out for a 6 Fr 45 cm sheath over a Storq wire. Selected the superficial femoral artery under roadmap guidance with Quickcross catheter and glidewire. The focal distal superficial femoral artery occlusion
was crossed with a Quickcross and Glidewire. The popliteal artery stenoses were easily crossed and the wire and catheter were advanced into the below the knee popliteal artery. Subtraction angio confirmed proper position in the true lumen.
Exchanged out for a Storq wire. A 5 mm x 100 mm angioplasty balloon was placed across the occlusion under roadmap guidance. The balloon was inflated to nominal pressure and then deflated and removed over the wire. Subsequent arteriogram demonstrated
an improved but suboptimal result. I then brought into position a 6 mm x 120 mm Zilver PTX stent and positioned this across the residual SFA/popliteal artery stenosis under roadmap guidance. The stent was deployed in the desired location under
roadmap guidance and the delivery system removed over the wire. A 5 mm angioplasty balloon was used to profile the entire length of the stent.
COMPLETION ARTERIOGRAM: Excellent technical result. Brisk flow through the superficial femoral artery and popliteal artery. Widely patent stent with no residual stenosis identified. Brisk tibial artery runoff via the anterior tibial and peroneal
arteries. Anterior tibial and peroneal arteries widely patent with no stenosis identified. The anterior tibial artery continued into the foot to form the dorsalis pedis artery which supplied the forefoot. The peroneal artery reconstituted plantar
branches in the foot. The posterior tibial artery was occluded. Limited reconstitution of a very diseased posterior tibial artery was visualized behind the ankle.
Satisfied with this result we then concluded the procedure. Protamine was administered. The sheath tip was pulled back into the left external iliac artery. The wire was removed.
The patient tolerated the procedure well and was taken to the recovery area in stable condition.
Attestation: I was present and responsible for the entire procedure.
Signed:
Jose Guadalupe Mancini III, MD
[facility]
[phone] (rzql)
[2023-03-28 18:39] LABS: Glucose - Point of Care 103 mg/dl (70-99)
--- NOTE | 2023-03-28 18:44 | W.PN.UPDATE ---
Update Note
Progress Note Update
Patient not following commands after procedure to keep left leg still and lie flat. Concerned that movement after left femoral artery sheath pull will result in hematoma/pseudoaneurysm or worse. Attempted to redirect patient without success.
Plan for left ankle restraint to the end of bed to keep left knee straight and prevent patient from flexing at the knee and hip. Monitor left groin access site closely. Will liberate from restraint after 6 hours which is our typical time for
patients to lie flat after this procedure.
Call with questions/concerns/changes.
Jose Guadalupe Mancini III, MD
[facility]
[phone] ([phone])
--- NOTE | 2023-03-28 18:59 | SUR.PHASEI ---
REc'd restless and moaning , kicking legs L leg held by resident, pt encouraged to relax oriented x 3 , flat in bed, in states this is her evening behavior, pt reassured
--- NOTE | 2023-03-28 19:08 | PTCARENOTE ---
talking to daughter on phone, restraints maint on L ankle and across knees brigido well, able to calm pt by talkling
[2023-03-28 19:14] LABS: Glucose - Point of Care 104 mg/dl (70-99)
--- NOTE | 2023-03-28 19:20 | SUR.PHASEI ---
Resting vss, dozing on and off
[2023-03-28] MEDS: NSS 1000 IV (19:31)
[2023-03-28] MEDS: LIPITOR 40 MG PO (21:23)
[2023-03-28] MEDS: NAMENDA 10 MG PO (21:23)
[2023-03-28] MEDS: CYMBALTA DELAYED RELEASE 30 MG PO (21:23)
[2023-03-28] MEDS: SEROQUEL 25 MG PO (21:24)
--- NOTE | 2023-03-29 00:08 | PTCARENOTE ---
Received pt from PACU via stretcher @ 1945. pt post-op angiogram. pt brought up with restraint to left lower ankle, and a restraint across upper legs. restraints will be removed at 03/29 @ 0030 as per post op instructions. pts VSS. Neurovascular
checks to be assessed, vitals signs, and site checks. Pt is bedrest and needed to use bathroom, purwick added temporarily. Family at beside currently and to stay overnight. pt calm, alert and cooperating.
[2023-03-29 00:30] VITALS: BP 97/51
[2023-03-29 00:36] LABS: Glucose - Point of Care 100 mg/dl (70-99)
[2023-03-29 01:30] VITALS: BP 95/64
--- NOTE | 2023-03-29 04:10 | DOWNTIME ---
There was a [employer] Client Marketing Area Manager Downtime on 03/29/2023 from 0111 to 03/29/2023 at 0405. Downtime documentation of patient's care, including medication administrations, has been reconciled in the electronic record per guidelines. Refer to the
patient's paper chart under the miscellaneous tab to see printed paper medication records and downtime forms.
[2023-03-29] MEDS: UNASYN IV ×2 (05:22→11:21)
[2023-03-29 05:58] LABS: Glucose - Point of Care 108 mg/dl (70-99)
[2023-03-29 06:35] LABS: Hematocrit 29.5 % (37.0-47.0); Hemoglobin 9.6 g/dL (12.0-16.0); Mean Corp Hgb Conc. 32.5 g/dL (33.0-37.0); Mean Corpuscular Hgb 25.8 pg (27.0-31.0); Mean Corpuscular Volume 79.3 fL (81.0-99.0); Mean Platelet Volume 10.4 fL (7.4-10.4); Platelet Count 219 10^3/uL (130-400); Red Blood Cell Count 3.72 10^6/uL (4.20-5.40); Red Cell Dist. Width 14.9 % (11.5-14.5); White Blood Cell Count 5.6 10^3/uL (4.8-10.8)
[2023-03-29 06:55] LABS: Blood Urea Nitrogen 10 mg/dl (7-17); Calcium 9.4 mg/dl (8.4-10.2); Carbon Dioxide 26 mmol/L (22-30); Chloride 110 mmol/L (98-107); Estimated Creatinine Clearance 63 ml/min; Glucose 119 mg/dl (70-99); Potassium 4.1 mmol/L (3.5-5.1); Sodium 140 mmol/L (135-145); eGFR > 60.00
[2023-03-29 07:00] VITALS: BP 83/49
--- NOTE | 2023-03-29 08:23 | W.PN.VS ---
Today's Communication / Plan
-
See below.
Assessment/Plan
-
Assessment: 53 yo female with nonhealing right 2nd toe wound, POD# 1 balloon angioplasty and drug-eluting stent placement to the right superficial femoral artery/popliteal artery (6 mm x 120 mm Zilver PTX), Diagnostic aortobiiliac arteriogram,
Diagnostic right lower extremity arteriogram, Ultrasound-guided percutaneous access to the left common femoral artery
Plan:
From a vascular surgery perspective can restart patient's home anticoagulation
Would initiate antiplatelet of aspirin 81 mg p.o. daily
Continue statin therapy
Follow-up ultrasound and appointment place and discharge instructions
Subjective Data
-
Date of Service: March 29, 2023
Patient seen and examined at bedside, reports uneventful prior evening. Does endorse very mild tenderness at left groin puncture site. Denies nausea, vomiting, fever, chills, abdominal pain, and abdominal distention.
Objective Data
-
Vital Signs
Temp Pulse Resp BP Pulse Ox
98.0 F 80 18 83/49 92
03/29/23 07:00 03/29/23 07:00 03/29/23 07:00 03/29/23 07:00 03/29/23 07:00
Intake and Output
03/28/23 03/29/23 03/30/23
06:59 06:59 06:59
Intake Total 1440 / 1440 1680 / 1680
Output Total 150 / 150
Balance 1440 / 1440 1530 / 1530
Intake:
Oral fluids 1440 / 1440 480 / 480
IV fluids (Total) 1050 / 1050
ns 50 / 50
IV piggybacks 150 / 150
Output:
Urine, Voided 150 / 150
Other:
Number of approximated MODERATE 4 2
amounts of urine
Lab Results
03/29/23 06:02
03/29/23 06:02
Calcium 9.4 mg/dl (8.4-10.2) 03/29/23 06:02
Total Bilirubin 0.9 mg/dl (0.2-1.3) 03/23/23 11:23
AST 18 U/L (14-36) 03/23/23 11:23
ALT 13 U/L (0-35) 03/23/23 11:23
Alkaline Phosphatase 126 U/L (38-126) 03/23/23 11:23
Total Protein 6.5 g/dl (6.3-8.2) 03/23/23 11:23
Albumin 3.9 g/dl (3.5-5.0) 03/23/23 11:23
Physical Exam
-
No apparent distress, resting in bed comfortably
No tachycardia
No dyspnea on room air
ABD rotund, soft, nontender
Left groin CDI, no evidence of hematoma, all surrounding compartments soft
Right DP pulse +1 palpable
[2023-03-29 08:27] LABS: Glucose - Point of Care 122 mg/dl (70-99)
[2023-03-29] MEDS: NOVOLOG FLEXPEN-LOW RESISTANCE SC (08:27)
[2023-03-29] MEDS: ZESTRIL PO (08:28)
[2023-03-29] MEDS: TOPROL XL PO (08:30)
[2023-03-29] MEDS: NSS 500 IV (08:51)
[2023-03-29] MEDS: PROTONIX 20 MG PO (08:52)
[2023-03-29] MEDS: GLUCOTROL 2.5 MG PO (08:52)
--- NOTE | 2023-03-29 09:07 | W.PN.HOSP.TC ---
Today's Communication/Plan
-
OK for DC today
Assessment / Plan
Assessment / Plan
53-year-old female with a past medical history of paroxysmal atrial fibrillation on Eliquis, CVA with residual short-term memory loss, type 2 diabetes, hypertension, peptic ulcer disease, and hyperparathyroidism presents with worsening erythema and
swelling of her right third toe despite 4 days of Augmentin.
Patient was given Zosyn and vancomycin in the ER.� Patient became red and itchy while getting the vancomycin.
Angiogram 03/28/23
Pre Op Diagnosis: Critical limb threatening ischemia of the right lower extremity manifested by nonhealing toe ulcer
Post Op Diagnosis: Critical limb threatening ischemia of the right lower extremity manifested by nonhealing toe ulcer
Procedure:
1.)� Balloon angioplasty and drug-eluting stent placement to the right superficial femoral artery/popliteal artery (6 mm x 120 mm Zilver PTX)
2.)� Diagnostic aortobiiliac arteriogram
3.)� Diagnostic right lower extremity arteriogram
4.)� Ultrasound-guided percutaneous access to the left common femoral artery
#Right foot cellulitis
-MRI not convincing for osteomyelitis
-s/p IV Unasyn - DC on augmentin
-appreciate ID
#Severe right lower extremity PVD
-statin
-s/p balloon angioplasty and FREDA to right superficial femoral artery/popliteal artery on 03/28
-Hold metformin x 48 hours post cath
-resume Eliquis, OK'd by vascular
#Severe iron deficiency anemia
Started oral iron with with vitamin C
Recommend outpatient colon cancer screening
#Sachi syndrome
Status post Pepcid and Benadryl
Vanc on allergy list
#Paroxysmal atrial fibrillation
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
resume eliquis when OK with vascular
#History of stroke with residual aphasia, memory loss, sundowning
Continue Eliquis, statin, Namenda
Added Seroquel 50 mg every afternoon, IV Haldol as needed --> change to 25 given morning drowsiness
#Peptic ulcer disease
Continue PPI
#Essential hypertension
Continue lisinopril metoprolol
#Type 2 diabetes
Continue glipizide, hold metformin
#Anxiety
Continue duloxetine
#Obesity due to excess calories
Affects all aspects of care
DVT prophylaxis�Eliquis
Full code
Called on phone 03/25, he did not greens picker and voicemail box was full
Updated daughter at bedside 03/26
Anticipated Discharge: Today
Subjective/Interval History
-
Date of Service: March 29, 2023
no new complaints
no chest pain
Objective Data
-
Labs:
Laboratory Results
03/29/23
06:02
WBC 5.6
Hgb 9.6 L
Hct 29.5 L
Plt Count 219
Sodium 140
Potassium 4.1
Chloride 110 H
Carbon Dioxide 26
BUN 10
Creatinine 1.0
Glucose 119 H
Calcium 9.4
Vital Signs:
Vital Signs
Temp Pulse Resp BP Pulse Ox
98.0 F 80 18 82/50 92
03/29/23 07:00 03/29/23 08:28 03/29/23 07:00 03/29/23 08:28 03/29/23 07:00
I&O
03/28/23 03/29/23 03/30/23
06:59 06:59 06:59
Intake Total 1440 / 1440 1680 / 1680
Output Total 150 / 150
Balance 1440 / 1440 1530 / 1530
Review of Systems
-
History Source: Patient
All other systems: Reviewed and negative
Physical Exam
-
General: No Apparent Distress
HEENT: Normocephalic and Atraumatic
Respiratory: Clear to Auscultation; Negative Wheezes
Cardiac: Regular Rhythm and S1/S2
Breast: Deferred by me
GI: Soft, Nontender, Nondistended and Other (midline dressing clean and dry )
Rectal: Deferred by Provider
Genito-urinary: Deferred by me
Musculoskeletal: No Clubbing, No Cyanosis, No Edema and Other (left groin access site without hematoma; right 3rd toe with area necrosis; erythema improviong )
Skin: Warm
Neuro: Awake and Alert
Psych: Calm
Data Reviewed
-
Diagnostic Radiology: Report Reviewed by me
Labs: Labs Reviewed by me
[2023-03-29] MEDS: FEOSOL 325 MG PO (11:21)
[2023-03-29] MEDS: VITAMIN C 500 MG PO (11:21)
[2023-03-29 11:31] LABS: Glucose - Point of Care 231 mg/dl (70-99)
--- NOTE | 2023-03-29 11:33 | W.PN.ID1 ---
Date of Service
Date of Service: March 29, 2023
Today's Communication
Continue antibiotics. See below�
Assessment / Plan
Right second toe cellulitis
- improved.
- cultures with MSSA
PAD
- for angiography today.
DM with neuropathy
Hx CVA
Asthma
GERD
HTN
Recommendations:
Day #7 of antibiotics.
Overall, area of cellulitis appears almost resolved.
Transition to Augmentin for an additional 2 days of therapy.
Little more to offer from a Infectious Diseases standpoint.
Will see you again at your request.
����������������������������������������������������������
Chief Complaint
-: Cellulitis
Subjective / Review of Systems
Patient seen and examined. Status post balloon angio yesterday.
Review of Systems: No Fever
Vital Signs / Physical Exam
Vital Signs
Vital Signs
Temp Pulse Resp BP Pulse Ox
98.0 F 80 18 82/50 92
03/29/23 07:00 03/29/23 08:28 03/29/23 07:00 03/29/23 08:28 03/29/23 07:00
Physical Exam
Constitutional: No Acute Distress, Comfortable and Non-toxic
Eyes: Sclera Anicteric
Pulmonary: Non Labored
Extremities: Other (Right second toe with dry crust. No erythema extending onto the foot.)
Neurological: Awake and Alert
Psychological: Calm
Objective Data
Lab Data
Lab Results
03/29/23 06:02
03/29/23 06:02
ESR 41 mm/hour (0-20) H 03/23/23 11:23
Estimated Creat Clear 63 ml/min 03/29/23 06:02
Lactic Acid 1.3 mmol/L (0.7-2.0) 02/15/24 11:23
Total Bilirubin 0.9 mg/dl (0.2-1.3) 03/23/23 11:23
AST 18 U/L (14-36) 03/23/23 11:23
ALT 13 U/L (0-35) 03/23/23 11:23
Alkaline Phosphatase 126 U/L (38-126) 03/23/23 11:23
C-Reactive Protein 27.50 mg/L (0.0-10.00) H 03/23/23 11:23
Most recent labs reviewed.
Micro Results:
03/23/23 12:38 Blood Culture - Final
Blood/Venous No Growth - Final Report
03/23/23 12:38 Blood Culture - Final
Blood/Venous No Growth - Final Report
03/23/23 11:24 Wound Culture - Final
Toe S aureus-Methicillin Sensitive
Gram Stain - Final
Imaging:
03/23/2023 x-ray right foot: No acute fracture dislocation or subluxation. Minimal joint space narrowing and mild sclerosis of the nterphalangeal joint of the right great toe consistent with osteoarthritis. No periosteal reaction or erosive changes.
[2023-03-29] MEDS: NOVOLOG FLEXPEN-LOW RESISTANCE 2 UNITS SC (11:36)
[2023-03-29] MEDS: ASPIR LOW (ENTERIC COATED) 81 MG PO (11:40)
--- NOTE | 2023-03-29 12:46 | W.DS.TRANS ---
DC Summary - Gray Tender
-
Discharge Instructions:
Discharge Diagnosis/Procedures right lower extremity cellulitis and peripheral
vascular disease
Diet Diabetic, Carb Controlled
Activity As tolerated
Driving Restrictions As prior to admission
Bathing Restrictions None
Others Tests Your follow-up ultrasound is scheduled here at
[facility] on 05/01/2023 at 1 PM
Instructions:
Stand-Alone Forms: DC Instr - Vascular OR
Changes to Home Medications: Yes
Discharge Medications:
DC Medications w/original date entered in [facility]
albuterol sulfate 90 mcg/actuation aerosol inhaler 2 puff inhalation R [id number] PRN sob ##0 05/21/21
atorvastatin 40 mg tablet 40 mg PO QPM High cholesterol 05/21/21
metformin 1,000 mg tablet 1,000 mg PO BID@0800,1700 Diabetes 05/21/21
pantoprazole 20 mg tablet,delayed release (Protonix) 20 mg PO DAILY Gastrointestinal issue 05/21/21
duloxetine 30 mg capsule,delayed release 30 mg PO QPM Mental Health/Anxiety 10/25/21
dupilumab 300 mg/2 mL subcutaneous pen injector (Dupixent) 300 mg SC WEEKLY Lung/breathing issues 10/25/21
lisinopril 10 mg tablet 10 mg PO Daily Blood pressure 10/25/21
glipizide 5 mg tablet 5 mg PO DAILY #30 tabs 03/16/22
apixaban 5 mg tablet (Eliquis) 5 mg PO BID 03/23/23
memantine 10 mg tablet 10 mg PO QPM 03/23/23
metoprolol succinate 25 mg tablet,extended release 24 hr (Toprol XL) 25 mg PO DAILY 03/23/23
amoxicillin 875 mg-potassium clavulanate 125 mg tablet 1 tab PO Q12 #4 tabs 03/29/23
ascorbic acid (vitamin C) 500 mg tablet (Vitamin C) 500 mg PO NOON #30 tabs 03/29/23
aspirin 81 mg tablet,delayed release 81 mg PO DAILY #30 tabs 03/29/23
ferrous sulfate 325 mg (65 mg iron) tablet (FeroSul) 325 mg PO NOON #30 tabs 03/29/23
Home Medication Changes
new start iron and vitamin C
You have two more days of antibiotics.
You are started on aspirin for peripheral arterial disease and will get follow up ultrasound next month
Continue to take protonix to protect the lining of your stomach given you are on aspirin and eliquis.
Pending Results: No
[2023-03-29] MEDS: ELIQUIS 5 MG PO (12:54)
--- NOTE | 2023-03-29 13:35 | CM ---
Received notification from patient's RN that patient's daughter wanted to talk to regarding [facility]. She wants for wound care.
Updated [facility] [email or web address].
Plan: Case management will continue to follow and assist with discharge planning. Home with [facility] if eligible for their services.
--- NOTE | 2023-03-29 14:22 | W.DCSUMMARY ---
Discharge Summary
Discharge Data
Date of Admission: 03/23/23
Date of Discharge: 03/29/23
-
Pending Results: No
Hospital Course
Discharging Physician : Dr. Sachi Norris
Disposition : Home with home health
Primary care physician : Dr. Dwight Tovar
Principal Discharge diagnosis : Right second toe cellulitis; peripheral arterial disease
Hospital Course :
Ms. 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
Augmentin. Triage vitals stable. Labs without leukocytosis. Patient was admitted to medicine with ID consulting. She was placed on IV Unasyn. Foot MRI without convincing evidence of osteo. LE US showed e/o significant SFA disease. Vascular
was consulted and patient underwent balloon angioplasty and FREDA to right superficial femoral artery/popliteal artery on 03/28.
Patient is discharged with 2 more days of Augmentin. She has outpatient follow up arterial US. She will follow up with her PCP and Vascular surgery.
Of note, patient found to have iron deficiency anemia with ferritin 10. She is started on iron supplementation, no e/o active bleeding. She is referred to GI on DC for further work-up of iron deficiency anemia.
Time spent on discharge was 31 minutes.
Important imaging findings :
Extremity Arterial Study 03/24/23
IMPRESSION:
1. Right ankle-brachial index measures 0.29, compared to 0.8 on prior. Right toe brachial index was not measurable. Suggestion of significant SFA disease. Very slow flow within the distal SFA measures 10 cm/s. Posterior tibial artery is occluded.
Small vessel disease may be present.
2. Left ankle brachial index 1.25, likely artificially elevated. Left toe brachial index 0.25. Suggestion of proximal SFA disease. Focal occlusion of the distal SFA, with reconstitution of the very distal SFA. Infrapopliteal and small vessel disease
may also be present.
Lower Extremity MRI 03/25/23
IMPRESSION:
Motion limited exam.
Mild bone marrow edema in the second toe. Differential considerations would include reactive edema versus the early changes of acute osteomyelitis. However, no T1 hypointense marrow replacement or enhancement of the second toe phalanges to
definitively confirm the presence of acute osteomyelitis. No MRI evidence for septic arthritis or soft tissue abscess.
Procedure findings :
Discharge Plan
-
Patient Disposition: Home with Home Care
Discharge Diagnosis/Procedures: right lower extremity cellulitis and peripheral vascular disease
Diet: Diabetic, Carb Controlled
Activity: As tolerated
Driving Restrictions: As prior to admission
Bathing Restrictions: None
Others Tests: Your follow-up ultrasound is scheduled here at [facility] on 05/01/2023 at 1 PM
Activity Restrictions/Additional Instructions:
DO NOT resume Metformin until tomorrow (wait 48 hours post angiogram).
You have iron deficiency anemia. We recommend you be screened for colon cancer with colonoscopy or other methods if you have not done so.
Please take iron with vitamin C for absorption to help you make new blood.
You have two more days of antibiotics.
You are started on aspirin for peripheral arterial disease and will get follow up ultrasound next month
Continue to take protonix to protect the lining of your stomach given you are on aspirin and eliquis.
Wound Care Instructions
L 2nd toe-clean with saline or Vashe wound cleanser, apply dry gauze dressing, change daily.
L merlos ulcer-clean with saline or soap and water, silicone border foam, change q 3 days and prn loosened dressing.
Follow up with vascular.
Follow up with plastic welder.
Follow up at wound care center call for an appointment.
Stand Alone Forms: DC Instr - Vascular OR
Referrals:
Yenny Hoffman MD [Active] - in two to three weeks (call to schedule work-up for iron deficiency anemia (endoscopy and colonoscopy))
Dwight Tovar DO [Family Provider] - in less than 1 week
Arcelia Branch CRNP [Specified Professional Personl] - 05/03/23 1:45 pm
Prescriptions:
New
aspirin 81 mg Tablet,Delayed Release (Dr/Ec)
81 mg PO DAILY Qty: 30 0RF
ferrous sulfate [FeroSul] 325 mg (65 mg iron) Tablet
325 mg PO NOON Qty: 30 0RF
amoxicillin-pot clavulanate 875-125 mg Tablet
1 tab PO Q12 Qty: 4 0RF
ascorbic acid (vitamin C) [Vitamin C] 500 mg Tablet
500 mg PO NOON Qty: 30 0RF
Continued
lisinopril 10 mg tablet
10 mg PO Daily
duloxetine 30 mg capsule,delayed release(DR/EC)
30 mg PO QPM
Dupixent Pen 300 mg/2 mL pen injector
300 mg SC WEEKLY
glipizide 5 mg tablet
5 mg PO DAILY Qty: 30 0RF
metoprolol succinate [Toprol XL] 25 mg Tablet Extended Release 24 Hr
25 mg PO DAILY
memantine 10 mg Tablet
10 mg PO QPM
Eliquis 5 mg Tablet
5 mg PO BID
pantoprazole [Protonix] 20 MG tablet,delayed release (DR/EC)
20 mg PO DAILY
atorvastatin 40 MG tablet
40 mg PO QPM
albuterol sulfate 1 PUFF HFA aerosol inhaler
2 puff inhalation R Q6HPRN PRN (Reason: sob) Qty: 0
Held
metformin 1,000 MG tablet
1,000 mg PO BID@0800,1700
Hold Instructions: Resume on 03/30/23. Ok to resume 48 hours post angiogram
Discontinued
amoxicillin-pot clavulanate [Augmentin] 875-125 mg Tablet
1 tab PO BID
Patient Comments:
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
Discharge Orders:
Discharge Patient (As Directed); Ordered 03/29/23
Ordered By: Sachi Norris
--- NOTE | 2023-03-29 14:58 | VNURNOTE ---
Home Health Liaison spoke with patient's daughter Mira to discuss [facility] nurse/therapy, visits, schedule and homebound status. Daughter is agreeable and understands that visits at home will be 2-3 x per week to assess wounds and teach medical
management. Daughter is willing to learn wound care and patient's spouse is an ER Dr. Daughter Mira is aware that [facility] will contact them for start of care in 1-2 days after discharge from . She requests to check insurance coverage prior.
Request relayed in referral. [facility] referral completed in [facility].
== END 2023-03-29 15:16 | disposition home health service (06) | DRG 629 ==
LOC: 3 WEST ACU 13:35
PROVIDERS: Nurse Practitioner Acute Care; Physician Assistant; Registered Nurse; Surgery Vascular Surgery; ADMITTING PHYSICIAN Family Medicine; ATTENDING PHYSICIAN Student in an Organized Health Care Education/Training Program; CONSULT PHYSICIAN Student in an Organized Health Care Education/Training Program; EMERGENCY PHYSICIAN Emergency Medicine; FAMILY PHYSICIAN Family Medicine
PROC: 047K34Z Dilation of Right Femoral Artery with Drug-eluting Intraluminal Device, Percutaneous Approach (ICD-10-PCS; 2023-03-28)
DX: E11.628 Type 2 diabetes mellitus with other skin complications (principal); F05 Delirium due to known physiological condition; B95.61 Methicillin susceptible Staphylococcus aureus infection as the cause of diseases classified elsewhere; L03.031 Cellulitis of right toe; E11.40 Type 2 diabetes mellitus with diabetic neuropathy, unspecified; E11.51 Type 2 diabetes mellitus with diabetic peripheral angiopathy without gangrene; D50.9 Iron deficiency anemia, unspecified; L97.519 Non-pressure chronic ulcer of other part of right foot with unspecified severity; I70.235 Atherosclerosis of native arteries of right leg with ulceration of other part of foot; J45.909 Unspecified asthma, uncomplicated; I48.0 Paroxysmal atrial fibrillation; K21.9 Gastro-esophageal reflux disease without esophagitis; E78.00 Pure hypercholesterolemia, unspecified; I10 Essential (primary) hypertension; E21.3 Hyperparathyroidism, unspecified; E66.09 Other obesity due to excess calories; F41.9 Anxiety disorder, unspecified; I69.320 Aphasia following cerebral infarction; Z79.84 Long term (current) use of oral hypoglycemic drugs; Z79.01 Long term (current) use of anticoagulants; Z68.35 Body mass index [BMI] 35.0-35.9, adult
CPT/HCPCS: 37224; 73630; 73720; 75625; 75716; 76937; 80048; 80053; 82728; 82962; 83036; 83540; 83550; 83605; 84466; 85025; 85027; 85652; 86140; 86850; 86900; 86901; 87040; 87070; 87147; 87186; 87205; 93005; 93922; 93925; 96365; 96366; 96367; 99285; A9575; C1725; C1769; C1874; C1894; Q9967

== ENCOUNTER → 2023-05-01 12:40 | Outpatient (REF) | payer OTHER, SELFPAY | LOC: RAD 12:40 | PROVIDERS: ATTENDING PHYSICIAN Surgery Vascular Surgery; FAMILY PHYSICIAN Family Medicine | DX: I73.9 Peripheral vascular disease, unspecified (principal) | CPT/HCPCS: 93922; 93925 ==

== ENCOUNTER 2023-05-07 03:26 | Inpatient (IN) | payer OTHER, SELFPAY ==
[2023-05-06 22:55] LABS: % Basophils 0.5 % (0-2); % Immature Granulocytes 0.4 % (0-0.5); % Lymphocytes 15.1 % (20.5-51.1); % Monocytes 7.9 % (1.7-9.3); % Neutrophils 74.1 % (42.2-75.2); Absolute Basophils 0.1 10^3/uL (0-0.2); Absolute Eosinophils 0.2 10^3/uL (0-0.7); Absolute Lymphocytes 1.5 10^3/uL (1.2-3.4); Absolute Monocytes 0.8 10^3/uL (0.1-0.6); Absolute Neutrophils 7.5 10^3/uL (1.4-6.5); Hematocrit 31.2 % (37.0-47.0); Hemoglobin 10.2 g/dL (12.0-16.0); Mean Corp Hgb Conc. 32.7 g/dL (33.0-37.0); Mean Corpuscular Hgb 25.5 pg (27.0-31.0); Mean Platelet Volume 9.9 fL (7.4-10.4); Nucleated Red Blood Cells % 0 %; Platelet Count 347 10^3/uL (130-400); Red Cell Dist. Width 15.6 % (11.5-14.5); White Blood Cell Count 10.1 10^3/uL (4.8-10.8)
[2023-05-06 23:02] LABS: Lactic Acid 1.7 mmol/L (0.7-2.0)
[2023-05-06 23:15] LABS: ALT (SGPT) 13 U/L (0-35); AST (SGOT) 16 U/L (14-36); Alkaline Phosphatase 140 U/L (38-126); Blood Urea Nitrogen 15 mg/dl (7-17); Calcium 10.6 mg/dl (8.4-10.2); Carbon Dioxide 24 mmol/L (22-30); Chloride 106 mmol/L (98-107); Glucose 143 mg/dl (70-99); Potassium 3.9 mmol/L (3.5-5.1); Sodium 137 mmol/L (135-145); Total Bilirubin 0.7 mg/dl (0.2-1.3); Total Protein 7.3 g/dl (6.3-8.2); eGFR > 60.00
--- NOTE | 2023-05-07 02:11 | ED.GENMED ---
History of Present Illness
General
Chief Complaint: Skin Problem
Source: patient, family (Daughter at bedside) and previous hospital records (Hospitalization March of this year for similar complaint. Similar toe.)
Exam Limitations: none
Time Seen by Provider: 05/07/23 01:28
Nursing documentation reviewed up to this point in time: agreed with
Travel History
Have you had any contact with someone who has COVID-19?: No
Do you have any symptoms of coronavirus? Fever > 100 degrees, chills, cough, shortness of breath, sore throat, loss of taste or smell, muscle aches, or headache?: No
History of Present Illness
History of Present Illness:
This is a 53-year-old woman with history of paroxysmal atrial fibrillation on Eliquis, CVA with residual short-term memory loss, type 2 diabetes, hypertension, peptic ulcer disease, peripheral vascular disease along with chronic diabetic ulcer right
second toe for which she was hospitalized with diabetic foot ulcer wound with cellulitis March of this year. During that hospitalization she was found to have significant SFA disease and underwent balloon angioplasty and FREDA to the right
superficial femoral artery/popliteal artery. She continues with home care nursing care once per week for wound dressing changes and followed up with vascular surgeon last week with reported improvement in arterial flow.
However, right second toe ulcer continues to smolder without improvement with increase in pain and local redness earlier this week for which she was started on Augmentin 3 days ago. Despite initiation of antibiotic she has had increasing in
swelling and now global swelling and redness to the dorsum of her right foot.
Similar progression and failure of outpatient antibiotics noted during hospitalization in March.
During that hospitalization in March she underwent a foot MRI without convincing evidence of osteomyelitis.
She has not had a fever nor chills. Applying Santyl ointment to wound as of this past week.
Past History
Past History
ED Past Medical History: Asthma, CVA, GERD, HTN, NIDDM and Other (Peptic ulcer disease, bowel obstruction, hyperparathyroidism, non healing wound LLE)
ED Past Surgical History: Appendectomy, Cholecystectomy, and Other (Lysis of adhesions, 2002 hernia repair with mesh, 2006 mesh removed,)
Patient has exhibited threatening behavior?: No
PSI?: No
Social History
Tobacco: Non-smoker
Alcohol: None
Drug: None
Personal:
Living: with family
Employment: Not employed
Family History
Family History: Other (Noncontributory)
Phy Exam
Physical Exam
Physical Exam:
GENERAL: 53-year-old overweight female appears somewhat older than stated age. She is bright and alert, pleasant, appears in no acute distress. Daughter is accompanying and offers most of the HPI.
EYE: anicteric
NECK: Supple, nontender, no meningismus, no significant adenopathy.
ENT: oral mucosa is moist. No rhinorrhea.
CARDIAC: Regular rate and rhythm. no murmur.
LUNGS: Clear breath sounds bilaterally, no acute respiratory distress, no wheezes/rales/rhonchi
ABDOMEN: Rotund, soft, nondistended, without focal tenderness
NEUROLOGICAL: Alert and oriented x3, no focal neuro deficits.
SKIN: Warm and dry, normal color, fair turgor.
MUSCULOSKELETAL: The right second toe has a moist subcutaneous whitish ulcer at the dorsal mid aspect with moderate surrounding erythema and soft tissue swelling of the toe along with global soft tissue swelling and erythema of the dorsal foot.
Dorsal foot and toe are moderately warm to touch. There is no lymphangitis up the leg. There is mild to moderate local tenderness of the toe. Distal toe, nail and nailbed are intact. Peripheral pulses are full and equal b/l.
PSYCH: Normal and appropriate interaction.
Course
Orders/Labs/Results
Orders:
Orders
05/06/23 22:40
Complete Blood Count/With Diff Urgent
Comprehensive Metabolic Panel Urgent
Blood Culture Urgent
LEO Source: Blood/Venous
Specimen Description:
05/06/23 22:41
Lactic Acid Urgent
05/07/23 00:00
CR Foot - Right Min 3 Views Urgent
Reason For Exam: infection
05/07/23 01:50
Wound Culture [Wound/Abscess/Other Culture] Urgent
LEO Source: Foot
Specimen Description: Right
Comment: right 2nd toe ulcer
05/07/23 01:52
Collagenase [Santyl Ointment] See Dose Instructions TOPICAL NOW STA
05/07/23 01:53
Ampicillin/Sulbactam 3 G [Unasyn] 3 gm 0.9% Sodium Chloride 100 ml [Nss] 100 ml IV NOW
05/07/23 01:55
Hydrocodone 5/APAP 325 [Osseo 5/325] 1 tablet PO NOW STA
Abnormal Lab Results
05/06/23
22:40
RBC 4.00 L 10^6/uL
(4.20-5.40)
Hgb 10.2 L g/dL
(12.0-16.0)
Hct 31.2 L %
(37.0-47.0)
MCV 78.0 L fL
(81.0-99.0)
MCH 25.5 L pg
(27.0-31.0)
MCHC 32.7 L g/dL
(33.0-37.0)
RDW 15.6 H %
(11.5-14.5)
Absolute Neuts (auto) 7.5 H 10^3/uL
(1.4-6.5)
Absolute Monos (auto) 0.8 H 10^3/uL
(0.1-0.6)
Lymphocytes % 15.1 L %
(20.5-51.1)
Glucose 143 H mg/dl
(70-99)
Calcium 10.6 H mg/dl
(8.4-10.2)
Alkaline Phosphatase 140 H U/L
(38-126)
05/06/23 22:40
05/06/23 22:40
Vital Signs
Initial and Last Documented VS:
Initial Vital Signs
Temp Pulse Resp Pulse Ox
98.2 F 82 16 100
05/06/23 22:23 05/06/23 22:23 05/06/23 22:23 05/06/23 22:23
Last Documented Vital Signs
Temp Pulse Resp Pulse Ox
98.2 F 82 16 100
05/06/23 22:23 05/06/23 22:23 05/06/23 22:23 05/06/23 22:23
MDM/Problems Addressed
Differential Diagnosis Includes:
Patient presents with persistent ulcerated wound dorsal mid aspect of the second toe right foot with progressive swelling erythema of the toe and dorsal foot despite initiation of Augmentin 3 days ago.
Right foot x-ray shows significant resorption of the middle phalanx of the second toe consistent with osteomyelitis which is new compared to previous x-ray 2 months ago.
Patient is afebrile and labs are reassuring with normal white blood cell count, mild but stable anemia. Random glucose 143. Lactic acid is normal at 1.7.
Alkaline phosphatase moderately elevated at 140 likely related to osteomyelitis.
Wound culture obtained.
Will initiate IV antibiotics and admit to hospitalist service.
Chronic conditions affecting care: DM, HTN and PVD
Acute Exacerbation and/or Progression of Chronic Illness: DM and PVD
*Radiology
Radiology exam reviewed: preliminary read by ED provider (Right foot x-ray shows significant resorption of the mid aspect of the middle phalanx second toe consistent with acute osteomyelitis. This is new compared to previous x-ray March 2023.)
*Pulse Oximetry
Patient hypoxic: no
*Critical Care Note
Total Time (30-74mins, 75-104mins- exclusive of procedures): Not Applicable
ED Attending Note
-
Portions of this chart may have been created with voice recognition software.� Occasional wrong word or��sound alike� substitutions may have occurred due to the inherent limitations of voice recognition software.
Discharge Plan
Departure
Patient Disposition: Admit
Date of Disposition: 05/07/23
Time of Disposition: 02:24
Admit to: Med/Surg
Admit to doctor: Htay
Presentation/result/management discussed w/ accepting MD/DO: Hospitalist
Condition: Fair
Discharge Problem:
Diabetic foot ulcer with osteomyelitis
Prescriptions:
No Action
lisinopril 10 mg tablet
10 mg PO Daily
duloxetine 30 mg capsule,delayed release(DR/EC)
30 mg PO QPM
Dupixent Pen 300 mg/2 mL pen injector
300 mg SC WEEKLY
glipizide 5 mg tablet
5 mg PO DAILY Qty: 30 0RF
metoprolol succinate [Toprol XL] 25 mg Tablet Extended Release 24 Hr
25 mg PO DAILY
memantine 10 mg Tablet
10 mg PO QPM
Eliquis 5 mg Tablet
5 mg PO BID
aspirin 81 mg Tablet,Delayed Release (Dr/Ec)
81 mg PO DAILY Qty: 30 0RF
ferrous sulfate [FeroSul] 325 mg (65 mg iron) Tablet
325 mg PO NOON Qty: 30 0RF
amoxicillin-pot clavulanate 875-125 mg Tablet
1 tab PO Q12 Qty: 4 0RF
ascorbic acid (vitamin C) [Vitamin C] 500 mg Tablet
500 mg PO NOON Qty: 30 0RF
pantoprazole [Protonix] 20 MG tablet,delayed release (DR/EC)
20 mg PO DAILY
atorvastatin 40 MG tablet
40 mg PO QPM
metformin 1,000 MG tablet
1,000 mg PO BID@0800,1700
Hold Instructions: Resume on 03/30/23. Ok to resume 48 hours post angiogram
albuterol sulfate 1 PUFF HFA aerosol inhaler
2 puff inhalation R Q6HPRN PRN (Reason: sob) Qty: 0
Referrals:
Guy,Dwight J., [Family Provider] -
Interventions
Interventions:
*General Assessment Last Done: 05/06/23 22:23
*ED COVID-19 Vaccine History Last Done: 05/06/23 22:23
Discharge Date and Time
Print Language: SAMOAN
[2023-05-07] MEDS: NORCO 5/325 1 TABLET PO (02:15)
[2023-05-07 02:17] VITALS: BP 102/65
[2023-05-07] MEDS: UNASYN IV ×4 (02:48→23:48)
[2023-05-07] MEDS: SANTYL OINTMENT 1 APPLIC TOPICAL (02:53)
--- NOTE | 2023-05-07 03:02 | HPS.HSE ---
Family Physician
-
Family Physician: Dwight Tovar
Chief Complaint
-
worsening Rt foot infection
History of Present Illness
53F HX chronic diabetic ulcer right second toe , T2DM, severe PAD , recent Balloon angioplasty and drug-eluting stent placement to the Rt superficial femoral artery/popliteal artery in Mar. Prx AF on Eliquis, CVA with residual MCI follow by home
wound care once a week , OP f/u with vascular surgeon.
Patient report right second toe ulcer is failed to improve , also increase in pain and local redness earlier this week
Currently on Augmentin 3 days ago.
However noted diffuse swelling and redness to the dorsum of her right foot.
Similar progression and failure of outpatient antibiotics noted during hospitalization in March.
Foot MRI in Mar without convincing evidence of osteomyelitis.
ROS
No fever nor chills.
Medical History
Past Medical History
Past Medical History: Reports Other
Additional Past Medical History:
Asthma
CVA
GERD
Hypertension
Type 2 diabetes
Peptic ulcer disease
Small bowel obstruction
Hyperparathyroidism
Nonhealing left lower extremity wound
Atrial fibrillation
Past Surgical History: Reports Other
Additional Past Surgical History:
Appendectomy
Cholecystectomy
Lysis of adhesion
Hernia repair with mesh
Social History
Tobacco: Non-smoker
Alcohol: None
Personal:
Living: With Family
Family History
Family History: Not pertinent
Allergies / Home Medications
Allergies reflects when Allergies were last updated in [facility].
Home Medications with original date entered in [facility]
Allergy/Medication List:
Allergies
Allergy/AdvReac Type Severity Reaction Status Date / Time
cefuroxime Allergy Hives. Verified 03/29/23 11:41
03/2023
tolerated
course
unasyn and
augmentin
cefuroxime axetil Allergy Hives, Verified 03/29/23 11:41
[From Ceftin] 03/2023
tolerated
course
unasyn and
augmentin
cephalexin monohydrate Allergy Hives, Verified 03/29/23 11:41
[From Keflex] 03/2023
tolerated
course
unasyn and
augmentin
erythromycin base Allergy Hives Verified 03/23/23 10:25
morphine Allergy Itching Verified 03/23/23 10:25
oxycodone [From Percocet] Allergy Nausea / Verified 03/23/23 10:25
Vomiting
vancomycin Allergy Itching Verified 03/24/23 14:39
Home Medications
albuterol sulfate 90 mcg/actuation aerosol inhaler 2 puff inhalation R Q6HPRN PRN sob ##0 05/21/21
atorvastatin 40 mg tablet 40 mg PO QPM High cholesterol 05/21/21
metformin 1,000 mg tablet 1,000 mg PO BID@0800,1700 Diabetes 05/21/21
pantoprazole 20 mg tablet,delayed release (Protonix) 20 mg PO DAILY Gastrointestinal issue 05/21/21
duloxetine 30 mg capsule,delayed release 30 mg PO QPM Mental Health/Anxiety 10/25/21
dupilumab 300 mg/2 mL subcutaneous pen injector (Dupixent) 300 mg SC WEEKLY Lung/breathing issues 10/25/21
lisinopril 10 mg tablet 10 mg PO Daily Blood pressure 10/25/21
glipizide 5 mg tablet 5 mg PO DAILY #30 tabs 03/16/22
apixaban 5 mg tablet (Eliquis) 5 mg PO BID 03/23/23
memantine 10 mg tablet 10 mg PO QPM 03/23/23
metoprolol succinate 25 mg tablet,extended release 24 hr (Toprol XL) 25 mg PO DAILY 03/23/23
amoxicillin 875 mg-potassium clavulanate 125 mg tablet 1 tab PO Q12 #4 tabs 03/29/23
ascorbic acid (vitamin C) 500 mg tablet (Vitamin C) 500 mg PO NOON #30 tabs 03/29/23
aspirin 81 mg tablet,delayed release 81 mg PO DAILY #30 tabs 03/29/23
ferrous sulfate 325 mg (65 mg iron) tablet (FeroSul) 325 mg PO NOON #30 tabs 03/29/23
Review of Systems
-
Constitutional: Reports No Symptoms
EENT: Reports No Symptoms
Respiratory: Reports No Symptoms
Cardiac: Reports No Symptoms
Abdomen/GI: Reports No Symptoms
: Reports No Symptoms
Musculoskeletal: Reports No Symptoms
Skin: Reports See HPI
Neurological: Reports No Symptoms
Endocrine: Reports No Symptoms
Hematologic/Lymphatic: Reports No Symptoms
Psych: Reports No Symptoms
Physical Exam
Vital Signs
Vital Signs
Temp Pulse Resp BP Pulse Ox
98.5 F 85 20 102/65 98
05/07/23 02:17 05/07/23 02:17 05/07/23 02:17 05/07/23 02:17 05/07/23 02:17
Physical Exam
General: Well Developed, Well Nourished, No Apparent Distress, Comfortable and Conversant
HEENT: NormoCephalic, Anicteric, Moist mucous membranes and Atraumatic
Respiratory: Clear
Cardiac: S1/S2, Regular Rhythm and Murmur
Breast: Deferred by me
GI: Soft, Non Tender, Non Distended and Normal Bowel Sounds
Rectal: Deferred by Provider
Genito-urinary: Deferred by me
Skin: Other (Rt second toe: whitish ulcer at the dorsal mid aspect with moderate surrounding erythema and soft tissue swelling of the toe along with global soft tissue swelling and erythema of the dorsal foot. Dorsal foot and toe are moderately
warm to touch. T)
Neuro: AO x 3
Psych: Calm
Laboratory Results
-
05/06/23 22:40
05/06/23 22:40
Laboratory Results
Lactic Acid 1.7 mmol/L (0.7-2.0) 05/06/23 22:41
Total Bilirubin 0.7 mg/dl (0.2-1.3) 05/06/23 22:40
AST 16 U/L (14-36) 05/06/23 22:40
ALT 13 U/L (0-35) 05/06/23 22:40
Alkaline Phosphatase 140 U/L (38-126) H 05/06/23 22:40
Data Reviewed
-
Diagnostic Radiology: Discussed with Physician
Lab Data: Labs Reviewed by me
Old Records: Reviewed
Impression/Plan
-
Reviewed VS: Afebrile HR 85 BP 102/65
Data
nl WCC
Hgb 10.2 - baseline hi 9s to hi 10s
nl CMP
BCX sent
R Foot XR :
significant resorption of the mid aspect of the middle phalanx second toe consistent with acute osteomyelitis.
This is new compared to previous x-ray March 2023
03/28/23 Angiogram 03/28/23
Pre Op Diagnosis: Critical limb threatening ischemia of the right lower extremity manifested by nonhealing toe ulcer
Post Op Diagnosis: Critical limb threatening ischemia of the right lower extremity manifested by nonhealing toe ulcer
Procedure:
1.) Balloon angioplasty and drug-eluting stent placement to the right superficial femoral artery/popliteal artery (6 mm x 120 mm Zilver PTX)
2.) Diagnostic aortobiiliac arteriogram
3.) Diagnostic right lower extremity arteriogram
4.) Ultrasound-guided percutaneous access to the left common femoral artery
Last hospitalist admission: 03/23/23 - 03/29 DX: Right second toe cellulitis; peripheral arterial disease
ASSESSMENT & PLAN
XR evidence of acute osteomyelitis of Diabetic Rt foot wound infection
Associated Rt foot cellulitis
Failed OP Augmentin
- Prior MRI in Mar not convincing for osteomyelitis
- Repeat MRI of Rt foot
- agree with IV Unasyn
- No prior Vacuum Forming Machine Operator evaluation per patient
- Vascular consult ( normally follow by vascular)
- ID consult
Severe right lower extremity PVD
- s/p balloon angioplasty and FREDA to right superficial femoral artery/popliteal artery on 03/28
- cont. ASA and Atorvastatin
- on Eliquis for Prx AF
T2DM
- Hold metformin
- cont. Glipizide
- add ISS low
Severe iron deficiency anemia
- on oral iron with with vitamin C
Sachi syndrome with Vancomycin
Vanc on allergy list
Prx AF
- ENTRY LEVEL MANAGEMENT metoprolol
- on eliquis
HX stroke with residual aphasia, MCI , sundowning
- cont. ENTRY LEVEL MANAGEMENT Eliquis, statin, Namenda
Peptic ulcer disease
- cont PPI
Essential hypertension
- cont. lisinopril metoprolol
Anxiety
- stable on duloxetine
Obesity due to excess calories
Affects all aspects of care
DVT Px: on Eliquis
Code: Full code
IP MS
[2023-05-07 06:39] VITALS: BP 103/70
[2023-05-07 07:00] VITALS: BP 109/71; BMI 35.4
--- NOTE | 2023-05-07 10:17 | W.PN.VS ---
Today's Communication / Plan
-
check elton and duplex
Assessment/Plan
-
pvd with non healing right second toe wound
- ordered non-invasive studies to eval flow and see if further vascular intervention is needed
- podiatry consulted
- may need amp of second toe
Subjective Data
-
Date of Service: May 07, 2023
Patient with continued right 2nd toe wound
she reports it is getting worse
no change in pain
Objective Data
-
Vital Signs
Temp Pulse Resp BP Pulse Ox
98.3 F 87 18 109/71 97
05/07/23 07:00 05/07/23 07:00 05/07/23 07:00 05/07/23 07:00 05/07/23 07:00
Lab Results
05/06/23 22:40
05/06/23 22:40
Calcium 10.6 mg/dl (8.4-10.2) H 05/06/23 22:40
Total Bilirubin 0.7 mg/dl (0.2-1.3) 05/06/23 22:40
AST 16 U/L (14-36) 05/06/23 22:40
ALT 13 U/L (0-35) 05/06/23 22:40
Alkaline Phosphatase 140 U/L (38-126) H 05/06/23 22:40
Total Protein 7.3 g/dl (6.3-8.2) 05/06/23 22:40
Albumin 4.0 g/dl (3.5-5.0) 05/06/23 22:40
Physical Exam
-
right second tow with small open wound
toe swollen
no palpable distal pulses
no erythema
slight chronic swelling of leg
[2023-05-07] MEDS: ZESTRIL 10 MG PO (11:51)
[2023-05-07] MEDS: VITAMIN C 500 MG PO (11:52)
[2023-05-07] MEDS: TOPROL XL 25 MG PO (11:52)
[2023-05-07] MEDS: GLUCOTROL 5 MG PO (11:52)
[2023-05-07] MEDS: PROTONIX 20 MG PO (11:52)
[2023-05-07] MEDS: ELIQUIS 5 MG PO ×2 (11:52→20:37)
[2023-05-07] MEDS: ASPIR LOW (ENTERIC COATED) 81 MG PO (11:53)
[2023-05-07 11:56] LABS: Glucose - Point of Care 156 mg/dl (70-99)
[2023-05-07] MEDS: NOVOLOG FLEXPEN-LOW RESISTANCE SC (11:56)
--- NOTE | 2023-05-07 12:59 | CON.ID ---
Consultation
-
Date/Time Consultation Requested: 05/07/2023 09:08
Date/Time Consultation Performed: 05/07/2023 1300
Requesting Provider: Dr. Montes
Performing Provider: Dr. Serrano
Reason for Consultation: Right foot infection
Chief Complaint / Past History
History of Present Illness
Janki Solorio is a 53-year-old female being evaluated at the request of Dr. Montes regarding a right second toe infection. History is obtained from chart review, along with patient interview. Additional history was obtained from the patient's
who is at the bedside.
The patient is known to the infectious disease service, having been seen in late March regarding right second toe cellulitis. Cultures at that time revealed MSSA, and the patient ultimately was discharged home, to continue with a course of
Augmentin. During that hospitalization she also underwent balloon angioplasty of the right superficial femoral artery and popliteal artery.
The reports that the right toe has been stable, but earlier this week she noted increasing erythema and discomfort of the right toe area. He also reports that they recently started Santyl applications to the foot. She was started on
Augmentin, but despite 3 days of antibiotics the foot has only grown more erythematous. The reports that the significant pain she has expressed has limited her ambulation.
Past History
Additional Past Medical History:
CVA
DM with neuropathy
Asthma
GERD
HTN
Additional Past Surgical History:
Appendectomy
Cholecystectomy
FIORDALIZA
Hernia repair
Allergy History:
cefuroxime Allergy (Verified 03/29/23 11:41)
Hives. 03/2023 tolerated course unasyn and augmentin
cefuroxime axetil [From Ceftin] Allergy (Verified 03/29/23 11:41)
Hives, 03/2023 tolerated course unasyn and augmentin
cephalexin monohydrate [From Keflex] Allergy (Verified 03/29/23 11:41)
Hives, 03/2023 tolerated course unasyn and augmentin
erythromycin base Allergy (Verified 03/23/23 10:25)
Hives
morphine Allergy (Verified 03/23/23 10:25)
Itching
oxycodone [From Percocet] Allergy (Verified 03/23/23 10:25)
Nausea / Vomiting
vancomycin Allergy (Verified 03/24/23 14:39)
Itching
Medications Reviewed: Yes
Current Antibiotics:
Unasyn 3 g IV every 6 hours
Social History
Tobacco: Non-Smoker
Alcohol: None
Drug: None
Personal:
Living: With Family
Employment: Disabled
Family History
Family History: Not Pertinent
Review of Systems
Vital Signs
Temp Pulse Resp BP Pulse Ox
98.3 F 88 16 113/67 100
05/07/23 07:00 05/07/23 12:08 05/07/23 12:08 05/07/23 11:52 05/07/23 12:08
Physical Exam
Physical Exam
Constitutional: No Acute Distress, Comfortable and Non-toxic
Head: Normocephalic
Eyes: Pupils Equal, Pupils Round, No Conjunctival Hemorrhage and Sclera Anicteric
Oral: No Thrush and No Ulcers
Cardiovascular: S1/S2; Negative S3/S4 or Murmur
Pulmonary: Clear and Non Labored; Negative Wheezes, Rales or Rhonchi
Gastrointestinal: Soft, Non Tender, Non Distended and Normal Bowel Sounds
Extremities: Edema (Right lower extremity) and Erythema (Right foot)
Wound: Other (Dorsum of right second toe at approximately the PIP joint. Slough noted. Mild purulent drainage noted. Positive malodor. Erythema extending onto a good portion of the dorsum of the foot.)
Neurological: Awake and Alert
Psychological: Calm
Lab / Diagnostic Study Results
05/06/23 22:40
05/06/23 22:40
Abs Immat Gran (auto) 0.0 10^3/uL (0-0.05) 05/06/23 22:40
Absolute Neuts (auto) 7.5 10^3/uL (1.4-6.5) H 05/06/23 22:40
Absolute Lymphs (auto) 1.5 10^3/uL (1.2-3.4) 05/06/23 22:40
Absolute Monos (auto) 0.8 10^3/uL (0.1-0.6) H 05/06/23 22:40
Absolute Basos (auto) 0.1 10^3/uL (0-0.2) 05/06/23 22:40
Immature Gran % 0.4 % (0-0.5) 05/06/23 22:40
Neutrophils % 74.1 % (42.2-75.2) 05/06/23 22:40
Lymphocytes % 15.1 % (20.5-51.1) L 05/06/23 22:40
Monocytes % 7.9 % (1.7-9.3) 05/06/23 22:40
Eosinophils % 2.0 % (0-6) 05/06/23 22:40
Basophils % 0.5 % (0-2) 05/06/23 22:40
Lactic Acid 1.7 mmol/L (0.7-2.0) 05/06/23 22:41
Microbiology Results
Micro:
05/07/23 02:41 Wound Culture - Pending
Foot - Right Gram Stain - Pending
05/07/23 02:41 Blood Culture - Pending
Blood/Venous
05/06/23 22:40 Blood Culture - Pending
Blood/Venous
Imaging:
05/07/2023 X-ray right foot: On the right second toe, new, near complete resorption of the middle phalanx, and distortion of the proximal phalanx head with subtle cortical irregularity involving the shaft of the proximal phalanx. Findings are
consistent with osteomyelitis.
Assessment / Plan
Right foot cellulitis
Right second toe osteomyelitis (by x-ray appearance)
PAD
CVA
DM with neuropathy
Asthma
GERD
HTN
Recommendations:
Prior foot cultures revealed growth of MSSA
Continue with Unasyn for the present. Wound culture is pending.
Await further input from Podiatry. Given appearance of toe near with near complete destruction of middle phalanges, a surgical resection of the toe may be best option to provide surgical cure.
Will continue to follow along with you.
--- NOTE | 2023-05-07 13:18 | W.PN.HOSP.TC ---
Today's Communication/Plan
-
mri foot
surg podiatry consult after mri
abx
imaging studies
id/vascular recs
Assessment / Plan
Assessment / Plan
General: Well Developed, Well Nourished, No Apparent Distress, Comfortable and Conversant
HEENT: NormoCephalic, Anicteric, Moist mucous membranes and Atraumatic
Respiratory: Clear
Cardiac: S1/S2, Regular Rhythm and Murmur
Breast: Deferred by me
GI: Soft, Non Tender, Non Distended and Normal Bowel Sounds
Rectal: Deferred by Provider
Genito-urinary: Deferred by me
Skin: Other (Rt second toe: right second toe with small open wound; swollen; no palpable distal pulses)
Neuro: AO x 3
Psych: Calm
XR evidence of acute osteomyelitis of Diabetic Rt foot wound infection
Associated Rt foot cellulitis
Failed OP Augmentin
- Repeat MRI of Rt foot
-Surgical Podiatry Consult after MRI
- IV Unasyn
- - Vascular consulted - imaging as per vascular
- ID consulted
Severe right lower extremity PVD
- s/p balloon angioplasty and FREDA to right superficial femoral artery/popliteal artery on 03/28
- cont. ASA and Atorvastatin
- on Eliquis for Prx AF
- - Vascular consulted - imaging as per vascular
T2DM
- Hold metformin
- cont. Glipizide
- add ISS low
Severe iron deficiency anemia
- on oral iron with vitamin C
Sachi syndrome with Vancomycin
Vanc on allergy list
Prx AF
- SENSITIZER metoprolol
- on eliquis
HX stroke with residual aphasia, MCI , sundowning
- cont. SENSITIZER Eliquis, statin, Namenda
Peptic ulcer disease
- cont PPI
Essential hypertension
- cont. lisinopril metoprolol
Anxiety
- stable on duloxetine
Obesity due to excess calories
DVT ppx
Eliquis
Total time spent on today's encounter was 50 minutes which included time spent in counseling the patient/family regarding diagnosis and treatment plan as listed above, goals of care, and symptom management. Case was discussed with nursing staff,
specialists, and care coordinators/case management. All labs and imaging personally reviewed by me. Remainder the time spent in detailed review of previous records, lab data, imaging, and other medical provider documentation.
Anticipated Discharge: > 48 hours
Subjective/Interval History
-
Date of Service: May 07, 2023
No acute events overnight
Objective Data
-
Vital Signs:
Vital Signs
Temp Pulse Resp BP Pulse Ox
98.3 F 88 16 113/67 100
05/07/23 07:00 05/07/23 12:08 05/07/23 12:08 05/07/23 11:52 05/07/23 12:08
Review of Systems
-
History Source: Patient
All other systems: Not reviewed unless documented
Data Reviewed
-
Diagnostic Radiology: Image personally visualized and interpreted and Report Reviewed by me
Labs: Labs Reviewed by me
[2023-05-07] MEDS: NOVOLOG FLEXPEN-LOW RESISTANCE 300 UNITS SC (13:40)
[2023-05-07 15:20] VITALS: BP 104/48
--- NOTE | 2023-05-07 16:05 | CM ---
Met with patient's at the bedside; initial assessment completed
*, Tramaine, is the Primary Contact; Call Cell if you need to speak with him
[facility]
reported that he and his live in a multi-level home; 2 steps to enter 14-15 steps between floors; powder room on the 1st floor; 2nd floor bath has walk-in shower; railings on the stairs
PLOF: reported that has stroke 02/2021; is very impulsive; is confused; no short term memory; needs assistance with ADLs and when climbing stairs; has a walker and cane but does not use it when ambulating. Patient is never left
alone
DME: walker, cane, shower chair, grab bars
SNF/Rehab/Home Care utilization history: stay @ [facility] after stroke in 2021February 2021 and again in April 2021 after knee procedure; currently has VN from [facility]
Plan: discharge plan to be determined pending hospital course; MRI scheduled tomorrow; PT/OT evals pending. CM will continue to follow and support discharge needs when identified
[2023-05-07 16:21] LABS: Glucose - Point of Care 224 mg/dl (70-99)
[2023-05-07] MEDS: NOVOLOG FLEXPEN-LOW RESISTANCE 2 UNITS SC (16:42)
[2023-05-07] MEDS: ProAIR HFA INHALER 2 PUFF INH (17:10)
[2023-05-07] MEDS: LIPITOR 40 MG PO (18:11)
[2023-05-07] MEDS: NAMENDA 10 MG PO (18:11)
[2023-05-07] MEDS: CYMBALTA DELAYED RELEASE 30 MG PO (18:11)
[2023-05-07 21:36] LABS: Glucose - Point of Care 171 mg/dl (70-99)
[2023-05-07 23:28] VITALS: BP 115/69
[2023-05-08] MEDS: UNASYN IV ×4 (04:43→21:06)
--- NOTE | 2023-05-08 08:00 | CON.VAS ---
Consultation
Consultation Request
Date/Time Consultation Performed: 05/08/23 0900
Requesting Provider: Hospitalist
Performing Provider: CALIN Lu
Reason for Consultation: Chronic right foot second digit wound
Medical History
-
Chief Complaint: Ongoing chronic right foot second digit wound
History of Present Illness:
Patient is a 53-year-old female with significant past medical history for stroke, asthma, hypertension, hypercholesterolemia, atrial fibrillation, PAD, and diabetes who presented to [facility] ED on 05/07/23 for worsening chronic right foot
second digit wound. Patient is known to our service as she underwent a right lower extremity arteriogram with intervention on 03/28/2023 with indication of on going right foot second toe wound. Patient states wound was progressing slowly following
arteriogram but over the past 1 to 2 weeks has worsened with increased redness and pain. In the outpatient setting she had arterial duplex with EVON/TBI on 05/01/23, which does not demonstrate stenosis of recently placed SFA stent. Patient denies
fever, chills, vomiting, and nausea.
Past Medical History
Past Medical History: Arrhythmias, Asthma, CVA, HTN, Hypercholesterolemia, NIDDM and Other (hyperparathyroid, reflux/PUD)
Past Surgical History: Appendectomy and Other (SBO with FIORDALIZA, right lower extremity arteriogram and balloon angioplasty and drug-eluting stent placement to the right superficial femoral artery/popliteal artery by Dr. Mancini on 03/28/23)
Social History
Tobacco: Non-Smoker
Alcohol: None
Personal:
Living: With Family
Allergies / Home Medications
Allergy/AdvReac Type Severity Reaction Status Date / Time
cefuroxime Allergy Hives. Verified 03/29/23 11:41
03/2023
tolerated
course
unasyn and
augmentin
cefuroxime axetil Allergy Hives, Verified 03/29/23 11:41
[From Ceftin] 03/2023
tolerated
course
unasyn and
augmentin
cephalexin monohydrate Allergy Hives, Verified 03/29/23 11:41
[From Keflex] 03/2023
tolerated
course
unasyn and
augmentin
erythromycin base Allergy Hives Verified 03/23/23 10:25
morphine Allergy Itching Verified 03/23/23 10:25
oxycodone [From Percocet] Allergy Nausea / Verified 03/23/23 10:25
Vomiting
vancomycin Allergy Itching Verified 03/24/23 14:39
�Medication �Instructions �Recorded �Confirmed �Type
albuterol sulfate 90 mcg/actuation 2 puff inhalation R Q6HPRN PRN sob 05/21/21 05/07/23 History
aerosol inhaler ##0
atorvastatin 40 mg tablet 40 mg PO QPM High cholesterol 05/21/21 05/07/23 History
metformin 1,000 mg tablet 1,000 mg PO BID@0800,1700 Diabetes 05/21/21 05/07/23 History
pantoprazole 20 mg tablet,delayed 20 mg PO DAILY Gastrointestinal 05/21/21 05/07/23 History
release (Protonix) issue
duloxetine 30 mg capsule,delayed 30 mg PO QPM Mental Health/Anxiety 10/25/21 05/07/23 History
release
dupilumab 300 mg/2 mL subcutaneous 300 mg SC WEEKLY Lung/breathing 10/25/21 05/07/23 History
pen injector (Dupixent) issues
lisinopril 10 mg tablet 10 mg PO Daily Blood pressure 10/25/21 05/07/23 History
glipizide 5 mg tablet 5 mg PO DAILY #30 tabs 03/16/22 05/07/23 Rx
apixaban 5 mg tablet (Eliquis) 5 mg PO BID 03/23/23 05/07/23 History
memantine 10 mg tablet 10 mg PO QPM 03/23/23 05/07/23 History
metoprolol succinate 25 mg 25 mg PO DAILY 03/23/23 05/07/23 History
tablet,extended release 24 hr
(Toprol XL)
amoxicillin 875 mg-potassium 1 tab PO Q12 #4 tabs 03/29/23 05/07/23 Rx
clavulanate 125 mg tablet
ascorbic acid (vitamin C) 500 mg 500 mg PO NOON #30 tabs 24 05/07/23 Rx
tablet (Vitamin C)
aspirin 81 mg tablet,delayed 81 mg PO DAILY #30 tabs 03/29/23 05/07/23 Rx
release
ferrous sulfate 325 mg (65 mg 325 mg PO NOON #30 tabs 03/29/23 05/07/23 Rx
iron) tablet (FeroSul)
memantine 5 mg tablet 5 mg PO DAILY 05/07/23 05/07/23 History
Review of Systems
-
History Source: Patient
Constitutional: Reports No Symptoms
EENT: Reports No Symptoms
Respiratory: Reports No Symptoms
Cardiac: Reports No Symptoms
Vascular: Denies Leg Pain / Claudication
Abdomen/GI: Reports No Symptoms
: Reports No Symptoms
Musculoskeletal: Reports No Symptoms and Edema
Skin: Reports Other (Ongoing right lower extremity foot second digit wound with worsening pain and erythema)
Neurological: Reports No Symptoms
Endocrine: Reports No Symptoms
Physical Exam
Vital Signs
Temp Pulse Resp BP Pulse Ox
98 F 68 18 117/60 95
05/08/23 08:35 05/08/23 08:35 05/08/23 08:35 05/08/23 08:35 05/08/23 08:35
Lab Results
05/08/23 07:50
05/08/23 07:50
Physical Exam
General: No Apparent Distress and Comfortable
HEENT: Normocephalic and Anicteric
Cardiac: Negative JVD
GI: Soft, Non Tender and Non Distended
Musculoskeletal: Edema (Bilateral lower EXTR trace edema)
Skin: Warm, Dry and Other (Right foot second digit with dry open wound, erythema present, no drainage noted)
Neuro: AO x 3
Pulses: Right Femoral: +2, Right Popliteal: +1 and Right Dorsalis Pedis: +1 (Palpable right AT)
Assessment / Plan
-
Assessment: 53-year-old female with ongoing right foot second digit nonhealing wound, PAD, status post right lower extremity arteriogram and balloon angioplasty and drug-eluting stent placement to the right superficial femoral artery/popliteal
artery by Dr. Mancini on 03/28/23.
Plan:
Right second toe likely exposed bone/osteomyelitis/ulceration. Recommend podiatry evaluation for likely toe amputation.
From a perfusion standpoint, she is likely maximally perfused (based on noninvasive studies and exam, her stent is patent).
[2023-05-08 08:15] LABS: Hematocrit 26.3 % (37.0-47.0); Hemoglobin 8.8 g/dL (12.0-16.0); Mean Corp Hgb Conc. 33.5 g/dL (33.0-37.0); Mean Corpuscular Hgb 25.5 pg (27.0-31.0); Mean Corpuscular Volume 76.2 fL (81.0-99.0); Mean Platelet Volume 9.7 fL (7.4-10.4); Platelet Count 293 10^3/uL (130-400); Red Blood Cell Count 3.45 10^6/uL (4.20-5.40); Red Cell Dist. Width 15.8 % (11.5-14.5); White Blood Cell Count 6.9 10^3/uL (4.8-10.8)
[2023-05-08 08:35] VITALS: BP 117/60
--- NOTE | 2023-05-08 08:39 | W.PN.UPDATE ---
Update Note
Progress Note Update
Seen and examined with SCREENER AND BLENDER OPERATOR. See full consultation note prior. Patient known to vascular service status post recent right lower extremity SFA/popliteal angioplasty/stent dated 03/28/[address] Mancini. This was done for second toe tissue loss. Now
with progressive/not improving tissue loss. Patient recently completed noninvasive outpatient imaging a week ago of the lower extremities. She is without any new particular complaints. On exam in the right lower extremity she has a palpable 2+
femoral palpable. 1+/2+ popliteal and proximal DP pulse on the foot. Foot is warm. Right second toe with dorsal ulceration at the level of the middle phalanx. Likely exposed bone. No pattie purulence or wet gangrene. Mild cellulitis
surrounding.
Noninvasive studies reviewed. EVON on the right side within normal limits 1.02. TBI moderately decreased 0.44.
Angiographic images from 03/28/2023 reviewed.
Plan/ Right second toe likely exposed bone/osteomyelitis/ulceration. Recommend podiatry evaluation for likely toe amputation. From a perfusion standpoint, I think she is maximally perfused (based on noninvasive studies and exam, her stent is
patent). She does have some small vessel disease based on angiographic review and TBI. However likely no intervention to render for that.
[2023-05-08 08:40] LABS: Blood Urea Nitrogen 10 mg/dl (7-17); Calcium 9.6 mg/dl (8.4-10.2); Carbon Dioxide 27 mmol/L (22-30); Chloride 107 mmol/L (98-107); Estimated Creatinine Clearance 105 ml/min; Glucose 125 mg/dl (70-99); Potassium 4.1 mmol/L (3.5-5.1); Sodium 137 mmol/L (135-145); eGFR > 60.00
[2023-05-08 08:46] LABS: Glycohemoglobin (HgbA1c) 7.5 % (4.0-5.6)
[2023-05-08 08:50] LABS: Glucose - Point of Care 136 mg/dl (70-99)
[2023-05-08] MEDS: TOPROL XL 25 MG PO (09:05)
[2023-05-08] MEDS: ASPIR LOW (ENTERIC COATED) 81 MG PO (09:05)
[2023-05-08] MEDS: NOVOLOG FLEXPEN-LOW RESISTANCE SC ×3 (09:05→17:33)
[2023-05-08] MEDS: GLUCOTROL 5 MG PO (09:05)
[2023-05-08] MEDS: PROTONIX 20 MG PO (09:06)
[2023-05-08] MEDS: ZESTRIL 10 MG PO (09:06)
[2023-05-08] MEDS: NAMENDA 5 MG PO (09:06)
--- NOTE | 2023-05-08 10:18 | VNURNOTE ---
Patient is current with [facility] since 03/31 w/SN, will monitor progress and plan at discharge.
[2023-05-08 12:30] LABS: Glucose - Point of Care 95 mg/dl (70-99)
[2023-05-08] MEDS: VITAMIN C 500 MG PO (12:38)
--- NOTE | 2023-05-08 13:24 | W.PN.HOSP.TC ---
Today's Communication/Plan
-
mri today
podiatry consulted
Assessment / Plan
Assessment / Plan
General: Well Developed, Well Nourished, No Apparent Distress, Comfortable and Conversant
HEENT: NormoCephalic, Anicteric, Moist mucous membranes and Atraumatic
Respiratory: Clear
Cardiac: S1/S2, Regular Rhythm and Murmur
Breast: Deferred by me
GI: Soft, Non Tender, Non Distended and Normal Bowel Sounds
Rectal: Deferred by Provider
Genito-urinary: Deferred by me
Skin: Other (Rt second toe: right second toe with small open wound; swollen; no palpable distal pulses)
Neuro: AO x 3
Psych: Calm
XR evidence of acute osteomyelitis of Diabetic Rt foot wound infection
Associated Rt foot cellulitis
Failed OP Augmentin
- Repeat MRI of Rt foot
- IV Unasyn
- Podiatry consulted
- ID consulted
-PT/OT
Severe right lower extremity PVD
- s/p balloon angioplasty and FREDA to right superficial femoral artery/popliteal artery on 03/28
- cont. ASA and Atorvastatin
- on Eliquis for Prx AF
- - Vascular consulted --please maximally perfused, no interventions at this time
T2DM
- Hold metformin
- cont. Glipizide
- add ISS low
Severe iron deficiency anemia
- on oral iron with vitamin C
Sachi syndrome with Vancomycin
Vanc on allergy list
Prx AF
- SOFTWARE QUALITY ASSURANCE ANALYST metoprolol
- on eliquis
HX stroke with residual aphasia, MCI , sundowning
- cont. SOFTWARE QUALITY ASSURANCE ANALYST Eliquis, statin, Namenda
Peptic ulcer disease
- cont PPI
Essential hypertension
- cont. lisinopril metoprolol
Anxiety
- stable on duloxetine
Obesity due to excess calories
DVT ppx
Eliquis
Total time spent on today's encounter was 51 minutes which included time spent in counseling the patient/family regarding diagnosis and treatment plan as listed above, goals of care, and symptom management. Case was discussed with nursing staff,
specialists, and care coordinators/case management. All labs and imaging personally reviewed by me. Remainder the time spent in detailed review of previous records, lab data, imaging, and other medical provider documentation.
Anticipated Discharge: > 48 hours
Subjective/Interval History
-
Date of Service: May 08, 2023
No acute events overnight
Objective Data
-
Labs:
Laboratory Results
05/08/23
07:50
WBC 6.9
Hgb 8.8 L
Hct 26.3 L
Plt Count 293
Sodium 137
Potassium 4.1
Chloride 107
Carbon Dioxide 27
BUN 10
Creatinine 0.5 L
Glucose 125 H
Calcium 9.6
Vital Signs:
Vital Signs
Temp Pulse Resp BP Pulse Ox
98 F 68 18 117/60 95
05/08/23 08:35 05/08/23 08:35 05/08/23 08:35 05/08/23 08:35 05/08/23 08:35
I&O
05/07/23 05/08/23 05/09/23
06:59 06:59 06:59
Intake Total 600 / 600
Balance 600 / 600
Review of Systems
-
History Source: Patient
All other systems: Not reviewed unless documented
Data Reviewed
-
Diagnostic Radiology: Image personally visualized and interpreted and Report Reviewed by me
Labs: Labs Reviewed by me
--- NOTE | 2023-05-08 13:41 | W.PN.ID1 ---
Date of Service
Date of Service: May 08, 2023
Today's Communication
Continue antibiotics
Assessment / Plan
Right foot cellulitis
Right second toe osteomyelitis (by x-ray appearance)
PAD
CVA
DM with neuropathy
Asthma
GERD
HTN
Recommendations:
Prior foot cultures revealed growth of MSSA
Continue with Unasyn for the present. Wound culture is pending; Gram stain reveals rare WBCs and rare GPC's
Await further input from Podiatry. Given appearance of toe near with near complete destruction of middle phalanges, a surgical resection of the toe may be best option to provide surgical cure.
Monitor white count temperature curve.
����������������������������������������������������������
Chief Complaint
-: Other (Right second toe osteomyelitis.)
Subjective / Review of Systems
Review of Systems: No Fever and No Chills
Vital Signs / Physical Exam
Vital Signs
Vital Signs
Temp Pulse Resp BP Pulse Ox
98 F 68 18 117/60 95
05/08/23 08:35 05/08/23 08:35 05/08/23 08:35 05/08/23 08:35 05/08/23 08:35
Physical Exam
Constitutional: No Acute Distress, Comfortable and Non-toxic
Eyes: Sclera Anicteric
Cardiovascular: S1/S2; Negative S3/S4
Pulmonary: Non Labored
Gastrointestinal: Soft and Non Tender
Wound: Other (Right second toe wound dressed. Ongoing erythema of the right foot.)
Neurological: Awake and Alert
Psychological: Calm
Objective Data
Lab Data
Lab Results
05/08/23 07:50
05/08/23 07:50
Estimated Creat Clear 105 ml/min 05/08/23 07:50
Lactic Acid 1.7 mmol/L (0.7-2.0) 05/06/23 22:41
Total Bilirubin 0.7 mg/dl (0.2-1.3) 05/06/23 22:40
AST 16 U/L (14-36) 05/06/23 22:40
ALT 13 U/L (0-35) 05/06/23 22:40
Alkaline Phosphatase 140 U/L (38-126) H 05/06/23 22:40
Most recent labs reviewed.
Micro Results:
05/07/23 02:41 Wound Culture - Preliminary
Foot - Right Gram Stain - Preliminary
05/06/23 22:40 Blood Culture - Preliminary
Blood/Venous No Growth in 24 hours- Final report to follow
05/07/23 02:41 Blood Culture - Preliminary
Blood/Venous No Growth in 24 hours- Final report to follow
05/07/23 13:40 MRSA Screen - Pending
Nose
Imaging:
05/07/2023 X-ray right foot: On the right second toe, new, near complete resorption of the middle phalanx, and distortion of the proximal phalanx head with subtle cortical irregularity involving the shaft of the proximal phalanx. Findings are
consistent with osteomyelitis.
[2023-05-08 16:41] VITALS: BP 126/59
[2023-05-08 17:01] LABS: Glucose - Point of Care 146 mg/dl (70-99)
--- NOTE | 2023-05-08 17:23 | CON.MD ---
Consultation - Medical
-
CC/History of Present Illness:
Podiatry consulted for right 2nd toe infection/osteomyelitis
Janki Solorio is a 53-year-old female evaluated at bedside. She is resting comfortably and conversational. She relates a history of a non-healing toe wound and is known to vascular service and infectious disease service.
She was treated in late March regarding right second toe cellulitis and had MSSA at that time. The patient was discharged home at the time on a course of Augmentin. During that hospitalization she also underwent balloon angioplasty of the
right superficial femoral artery and popliteal artery.
She states that she noticed increasing redness and pain at the wound site this past week.
Past History
CVA
DM with neuropathy
Asthma
GERD
HTN
Past Surgical History:
Appendectomy
Cholecystectomy
FIORDALIZA
Hernia repair
Allergy:
cefuroxime - Hives
oxycodone - itching, Nausea, Vomiting
vancomycin - Itching
Medications
On chart and reviewed
Current Antibiotics:
Unasyn 3 g IV every 6 hours
Social History
Tobacco: Non-Smoker
Alcohol: None
Drug: None
Personal:
Living: With Family
Employment: Disabled
Family History
Family History: Not Pertinent
Physical Exam
Right foot with pulse palpable, foot perfused, loss of pedal hair, generalized edema. Erytheam to the seocnd toe extending past the 2nd MPJ. there is a wound a the PIPJ dorsally on the toe and the head of the proximal phalanx is exposed. No
purulence expressed.
Microbiology Results
05/07/23 02:41 Wound Culture - Pending
Foot - Right Gram Stain - Pending
05/07/23 02:41 Blood Culture - Pending
Blood/Venous
05/06/23 22:40 Blood Culture - Pending
Blood/Venous
Imaging:
05/07/2023 X-ray right foot: On the right second toe, new, near complete resorption of the middle phalanx, and distortion of the proximal phalanx head with subtle cortical irregularity involving the shaft of the proximal phalanx. Findings are
consistent with osteomyelitis.
MRI results -acute osteomyelitis of the entire second toe with involvement of the proximal phalanx, middle phalanx, and distal phalanx. More localized destructive changes centered at the second proximal interphalangeal joint with a contiguous dorsal
soft tissue wound, Severe cellulitis about the second toe, Severe diabetic myopathy of the right foot.
Assessment:
Right foot cellulitis
Right second toe osteomyelitis
Type2 DM with neuropathy
PAD
Plan:
She is evaluated and treated at bedside. Notes, labs, X-ray and MRI reviewed. Results of studies discussed in depth with her and her . Will hold Eliquis and plan for 2nd toe amputation on Monday afternoon. NPO after breakfast on
Monday. Betadine and gauze applied to toe. Cultures pending. Continue unasyn per ID
[2023-05-08] MEDS: CYMBALTA DELAYED RELEASE 30 MG PO (17:33)
[2023-05-08] MEDS: LIPITOR 40 MG PO (17:33)
[2023-05-08] MEDS: NAMENDA 10 MG PO (17:33)
[2023-05-08 21:15] LABS: Glucose - Point of Care 163 mg/dl (70-99)
[2023-05-08 23:33] VITALS: BP 115/53
[2023-05-09] MEDS: TYLENOL 650 MG PO (01:22)
[2023-05-09] MEDS: UNASYN IV ×2 (04:51→11:00)
[2023-05-09 06:02] LABS: Hematocrit 27.6 % (37.0-47.0); Hemoglobin 9.2 g/dL (12.0-16.0); Mean Corp Hgb Conc. 33.3 g/dL (33.0-37.0); Mean Corpuscular Hgb 25.3 pg (27.0-31.0); Mean Corpuscular Volume 75.8 fL (81.0-99.0); Mean Platelet Volume 10.2 fL (7.4-10.4); Platelet Count 267 10^3/uL (130-400); Red Blood Cell Count 3.64 10^6/uL (4.20-5.40); Red Cell Dist. Width 15.6 % (11.5-14.5); White Blood Cell Count 5.9 10^3/uL (4.8-10.8)
[2023-05-09 06:42] LABS: Blood Urea Nitrogen 11 mg/dl (7-17); Calcium 10.1 mg/dl (8.4-10.2); Carbon Dioxide 26 mmol/L (22-30); Chloride 106 mmol/L (98-107); Estimated Creatinine Clearance 105 ml/min; Glucose 162 mg/dl (70-99); Potassium 4.4 mmol/L (3.5-5.1); Sodium 138 mmol/L (135-145); eGFR > 60.00
[2023-05-09 07:24] LABS: Glucose - Point of Care 166 mg/dl (70-99)
[2023-05-09 07:30] VITALS: BP 136/71
[2023-05-09 09:05] VITALS: BP 127/64; PULSE 79; O2SAT 98
--- NOTE | 2023-05-09 09:17 | CM ---
CM reviewed chart- plan for OR 05/09 for toe amp
Pt is current with [facility]
CM will continue to follow and watch for post-op needs
Discharge Disposition- anticipate home [facility]
[2023-05-09] MEDS: PROTONIX 20 MG PO (09:22)
[2023-05-09] MEDS: ZESTRIL 10 MG PO (09:23)
[2023-05-09] MEDS: GLUCOTROL 5 MG PO (09:23)
[2023-05-09] MEDS: ASPIR LOW (ENTERIC COATED) 81 MG PO (09:23)
[2023-05-09] MEDS: TOPROL XL 25 MG PO (09:24)
[2023-05-09] MEDS: NAMENDA 5 MG PO (09:28)
[2023-05-09] MEDS: NOVOLOG FLEXPEN-LOW RESISTANCE 1 UNITS SC ×2 (09:29→17:28)
[2023-05-09 09:44] VITALS: BP 127/64; PULSE 76; O2SAT 98
[2023-05-09 11:47] LABS: Glucose - Point of Care 216 mg/dl (70-99)
--- NOTE | 2023-05-09 12:48 | W.PN.HOSP.TC ---
Today's Communication/Plan
-
see A/P
Assessment / Plan
Assessment / Plan
General: Well Developed, Well Nourished, No Apparent Distress, Comfortable and Conversant
HEENT: NormoCephalic, Anicteric, Moist mucous membranes and Atraumatic
Respiratory: Clear
Cardiac: S1/S2, Regular Rhythm and Murmur
Breast: Deferred by me
GI: Soft, Non Tender, Non Distended and Normal Bowel Sounds
Rectal: Deferred by Provider
Genito-urinary: Deferred by me
Skin: Other (Rt second toe: right second toe with small open wound; swollen; no palpable distal pulses)
Neuro: AO x 3
Psych: Calm
A/P:
# acute osteomyelitis of Diabetic Rt foot wound infection
# Associated Rt foot cellulitis
Failed OP Augmentin
MRI Rt foot confirmed Acute osteomyelitis of the entire second toe with involvement of the proximal phalanx, middle phalanx, and distal phalanx. More localized destructive changes centered at the second proximal interphalangeal joint with a
contiguous dorsal soft tissue wound. Severe cellulitis about the second toe. Severe diabetic myopathy of the right foot.
Cont IV Unasyn
ID on board
Podiatry on board, hold Eliquis and plan for 2nd toe amputation on Monday.
PT/OT after amputation
# Severe right lower extremity PVD
# s/p balloon angioplasty and FREDA to right superficial femoral artery/popliteal artery on 03/28
cont ASA and Atorvastatin
On Eliquis for Prx AF
Vascular consulted, she is maximally perfused, no interventions at this time
# T2DM
Hold metformin
cont. Glipizide
A1C 7.5%
add ISS low
# Severe iron deficiency anemia
On oral iron with vitamin C
# Sachi syndrome with Vancomycin
# Prx AF
TILLER MAN metoprolol
Eliquis on hold
# HX stroke with residual aphasia, MCI, sundowning
cont TILLER MAN statin, Namenda
Eliquis on hold
# Peptic ulcer disease
cont PPI
# Essential hypertension
cont lisinopril, metoprolol
# Anxiety,
mood stable on duloxetine
# Obesity due to excess calories
DVT ppx: Eliquis on hold
Anticipated Discharge: > 48 hours
Subjective/Interval History
-
Date of Service: May 09, 2023
Objective Data
-
Labs:
Laboratory Results
05/09/23
05:40
WBC 5.9
Hgb 9.2 L
Hct 27.6 L
Plt Count 267
Sodium 138
Potassium 4.4
Chloride 106
Carbon Dioxide 26
BUN 11
Creatinine 0.6
Glucose 162 H
Calcium 10.1
Vital Signs:
Vital Signs
Temp Pulse Resp BP Pulse Ox
36.6 C 76 18 136/71 95
05/09/23 07:30 05/09/23 07:30 05/09/23 07:30 05/09/23 07:30 05/09/23 07:30
I&O
05/08/23 05/09/23 05/10/23
06:59 06:59 06:59
Intake Total 600 / 600 1440 / 1440
Balance 600 / 600 1440 / 1440
Review of Systems
-
All other systems: Reviewed and negative
Data Reviewed
-
Labs: Labs Reviewed by me
[2023-05-09] MEDS: VITAMIN C 500 MG PO (13:25)
[2023-05-09] MEDS: NOVOLOG FLEXPEN-LOW RESISTANCE 2 UNITS SC (13:28)
--- NOTE | 2023-05-09 14:54 | W.PN.ID1 ---
Date of Service
Date of Service: May 09, 2023
Today's Communication
Continue antibiotics. See below�
Assessment / Plan
Right foot cellulitis
Right second toe wound with MRSA
Right second toe osteomyelitis (by x-ray appearance)
PAD
CVA
DM with neuropathy
Asthma
GERD
HTN
Recommendations:
Prior foot cultures revealed growth of MSSA. Current cultures have grown MRSA.
Unasyn discontinued. Given prior history of erythema with vancomycin (although not clear whether allergy or not), will begin daptomycin. Statin held.
For tentative toe amputation tomorrow.
����������������������������������������������������������
Chief Complaint
-: Other (Right second toe osteomyelitis.)
Subjective / Review of Systems
Review of Systems: No Fever and No Chills
Vital Signs / Physical Exam
Vital Signs
Vital Signs
Temp Pulse Resp BP Pulse Ox
98 F 76 18 136/71 95
05/09/23 07:30 05/09/23 07:30 05/09/23 07:30 05/09/23 07:30 05/09/23 07:30
Physical Exam
Constitutional: No Acute Distress, Comfortable and Non-toxic
Cardiovascular: S1/S2; Negative S3/S4
Pulmonary: Non Labored
Gastrointestinal: Non Distended and Normal Bowel Sounds
Wound: Other (Right second toe dressed. Mild edema of right leg.)
Neurological: Awake and Alert
Psychological: Calm
Objective Data
Lab Data
Lab Results
05/09/23 05:40
05/09/23 05:40
Estimated Creat Clear 105 ml/min 05/09/23 05:40
Lactic Acid 1.7 mmol/L (0.7-2.0) 05/06/23 22:41
Total Bilirubin 0.7 mg/dl (0.2-1.3) 05/06/23 22:40
AST 16 U/L (14-36) 05/06/23 22:40
ALT 13 U/L (0-35) 05/06/23 22:40
Alkaline Phosphatase 140 U/L (38-126) H 05/06/23 22:40
Most recent labs reviewed.
Micro Results:
05/07/23 02:41 Wound Culture - Preliminary
Foot - Right Staph aureus MRSA
Gram Stain - Preliminary
05/06/23 22:40 Blood Culture - Preliminary
Blood/Venous No Growth in 48 hours- Final report to follow
05/07/23 02:41 Blood Culture - Preliminary
Blood/Venous No Growth in 48 hours- Final report to follow
05/07/23 13:40 MRSA Screen - Final
Nose No Methicillin Resistant Staphylococcus aureus isolated.
Imaging:
05/07/2023 X-ray right foot: On the right second toe, new, near complete resorption of the middle phalanx, and distortion of the proximal phalanx head with subtle cortical irregularity involving the shaft of the proximal phalanx. Findings are
consistent with osteomyelitis.
[2023-05-09 15:02] VITALS: BP 125/61
[2023-05-09] MEDS: CUBICIN 16 MG IV (16:30)
[2023-05-09 16:56] LABS: Glucose - Point of Care 169 mg/dl (70-99)
--- NOTE | 2023-05-09 17:17 | TRANSFER ---
Pt transferred into room 432 from . Patient ambulated from WC to bed with minimal assistance. AAOx1, bed alarm in place. Patient oriented to new room and plan of care, call patten within reach. No complaints at this time.
[2023-05-09] MEDS: NAMENDA 10 MG PO (17:28)
[2023-05-09] MEDS: CYMBALTA DELAYED RELEASE 30 MG PO (17:28)
[2023-05-09 21:29] LABS: Glucose - Point of Care 184 mg/dl (70-99)
[2023-05-09 23:12] VITALS: BP 145/84
[2023-05-10] VITALS (9 sets, daily range): BP systolic 13–162; BP diastolic 53–94
[2023-05-10 07:57] LABS: Glucose - Point of Care 154 mg/dl (70-99)
[2023-05-10 08:42] LABS: Hematocrit 29.3 % (37.0-47.0); Hemoglobin 9.5 g/dL (12.0-16.0); Mean Corp Hgb Conc. 32.4 g/dL (33.0-37.0); Mean Corpuscular Hgb 25.3 pg (27.0-31.0); Mean Corpuscular Volume 78.1 fL (81.0-99.0); Mean Platelet Volume 9.7 fL (7.4-10.4); Platelet Count 361 10^3/uL (130-400); Red Blood Cell Count 3.75 10^6/uL (4.20-5.40); Red Cell Dist. Width 15.5 % (11.5-14.5); White Blood Cell Count 5.9 10^3/uL (4.8-10.8)
[2023-05-10] MEDS: NOVOLOG FLEXPEN-LOW RESISTANCE SC ×3 (08:49→17:34)
--- NOTE | 2023-05-10 08:50 | W.PN.POD ---
Today's Communication
Today's Communication
Right 2nd toe osteomyelitis
Assessment / Plan
-
Type 2 DM with neuropathy
PAD
Right 2nd toe osteomyelitis with cellulitis
Bandages changed at bedside today
Plan for OR later today, consent is on chart. Was reviewed with her and . Risks, benefits complication of surgery discussed. Declined second opinion. Wishes to proceed with toe amputation
Continue Augmentin
Subjective
Chief Complaint
Right 2nd toe osteomyelitis
Subjective
Patient seen at bedside- sleepy, no complaints of pain
Objective
Temp Pulse Resp BP Pulse Ox
98.5 F 79 16 162/81 97
05/10/23 07:33 05/10/23 07:33 05/10/23 07:33 05/10/23 07:33 05/10/23 07:33
05/10/23 07:54
Vital Signs and Lab results were reviewed.
Physical Exam
Physical Exam
Right foot with pulse palpable, foot perfused, loss of pedal hair, generalized edema. Erythema to the second toe to the 2nd MPJ, less intense. there is a wound a the PIPJ dorsally on the toe and the head of the proximal phalanx is exposed. No
purulence expressed.
[2023-05-10] MEDS: ASPIR LOW (ENTERIC COATED) 81 MG PO (08:58)
[2023-05-10] MEDS: GLUCOTROL 5 MG PO (08:59)
[2023-05-10] MEDS: NAMENDA 5 MG PO (09:00)
[2023-05-10] MEDS: ZESTRIL 10 MG PO (09:01)
[2023-05-10] MEDS: TOPROL XL 25 MG PO (09:01)
[2023-05-10] MEDS: PROTONIX 20 MG PO (09:01)
[2023-05-10 09:16] LABS: Blood Urea Nitrogen 8 mg/dl (7-17); Calcium 10.4 mg/dl (8.4-10.2); Carbon Dioxide 27 mmol/L (22-30); Chloride 105 mmol/L (98-107); Estimated Creatinine Clearance 105 ml/min; Glucose 152 mg/dl (70-99); Sodium 141 mmol/L (135-145); eGFR > 60.00
[2023-05-10 09:31] LABS: Potassium 4.3 mmol/L (3.5-5.1)
--- NOTE | 2023-05-10 10:32 | CM ---
Chart reviewed and plan is to home when stable, patient is current with [facility].
Plan; Home with [facility]
[2023-05-10] MEDS: VITAMIN C 500 MG PO (11:40)
[2023-05-10 12:06] LABS: Glucose - Point of Care 124 mg/dl (70-99)
--- NOTE | 2023-05-10 13:26 | W.PN.HOSP.TC ---
Today's Communication/Plan
-
see A/P
Assessment / Plan
Assessment / Plan
A/P:
# acute osteomyelitis of Diabetic Rt foot wound infection
# Associated Rt foot cellulitis
Failed OP Augmentin
MRI Rt foot confirmed Acute osteomyelitis of the entire second toe with involvement of the proximal phalanx, middle phalanx, and distal phalanx. More localized destructive changes centered at the second proximal interphalangeal joint with a
contiguous dorsal soft tissue wound. Severe cellulitis about the second toe. Severe diabetic myopathy of the right foot.
Cont IV Unasyn
ID on board
Podiatry on board, hold Eliquis and plan for 2nd toe amputation on Monday.
PT/OT after amputation
# Severe right lower extremity PVD
# s/p balloon angioplasty and FREDA to right superficial femoral artery/popliteal artery on 03/28
cont ASA and Atorvastatin
On Eliquis for Prx AF
Vascular consulted, she is maximally perfused, no interventions at this time
# T2DM
Hold metformin
cont. Glipizide
A1C 7.5%
add ISS low
# Severe iron deficiency anemia
On oral iron with vitamin C
# Sachi syndrome with Vancomycin
# Prx AF
SPECIALTY DEVELOPMENT CONSULTANT metoprolol
Eliquis on hold
# HX stroke with residual aphasia, MCI,
cont SPECIALTY DEVELOPMENT CONSULTANT statin, Namenda
Eliquis on hold
# Peptic ulcer disease
cont PPI
# Essential hypertension
cont lisinopril, metoprolol
# Anxiety,
mood stable on duloxetine
# Obesity due to excess calories
DVT ppx: Eliquis on hold
Anticipated Discharge: 24 - 48 hours
Subjective/Interval History
-
Date of Service: May 10, 2023
Objective Data
-
Labs:
Laboratory Results
05/10/23
07:54
WBC 5.9
Hgb 9.5 L
Hct 29.3 L
Plt Count 361 D
Sodium 141
Potassium 4.3
Chloride 105
Carbon Dioxide 27
BUN 8
Creatinine 0.6
Glucose 152 H
Calcium 10.4 H
Vital Signs:
Vital Signs
Temp Pulse Resp BP Pulse Ox
36.9 C 79 16 162/81 97
05/10/23 07:33 05/10/23 09:01 05/10/23 07:33 05/10/23 09:01 05/10/23 09:00
I&O
05/09/23 05/10/23 05/11/23
06:59 06:59 06:59
Intake Total 1440 / 1440 1080 / 1080
Balance 1440 / 1440 1080 / 1080
Review of Systems
-
Unable to obtain full review of systems at this time due to: Other (sleeping)
Physical Exam
-
General: Well Developed, Well Nourished, No Apparent Distress, Comfortable and Obese
HEENT: Normocephalic and Atraumatic
Respiratory: Clear to Auscultation and Non Labored Respirations; Negative Wheezes or Accessory Resp Muscle Use
Cardiac: Regular Rhythm and S1/S2
Breast: Deferred by me
GI: Soft, Nontender and Nondistended
Rectal: Deferred by Provider
Genito-urinary: Deferred by me
Musculoskeletal: Other (left groin access site without hematoma; right 3rd toe with area necrosis; erythema improviong )
Skin: Warm
Neuro: Other (sleeping, did not awake)
Psych: Calm
Data Reviewed
-
Labs: Labs Reviewed by me
--- NOTE | 2023-05-10 15:11 | W.PN.ID1 ---
Date of Service
Date of Service: May 10, 2023 12:30P
Today's Communication
Continue abx. Await right second toe amputation.
Assessment / Plan
Right foot cellulitis
Right second toe wound with MRSA
Right second toe osteomyelitis (by x-ray appearance)
PAD
CVA
DM with neuropathy
Asthma
GERD
HTN
Recommendations:
Prior foot cultures revealed growth of MSSA. Current cultures have grown MRSA.
Continue daptomycin. Statin held.
For tentative toe amputation today.
����������������������������������������������������������
Chief Complaint
-: Other (Right second toe osteomyelitis.)
Subjective / Review of Systems
Review of Systems: No Fever
Vital Signs / Physical Exam
Vital Signs
Vital Signs
Temp Pulse Resp BP Pulse Ox
98.5 F 79 16 162/81 97
05/10/23 07:33 05/10/23 09:01 05/10/23 07:33 05/10/23 09:01 05/10/23 09:00
Physical Exam
Constitutional: No Acute Distress, Comfortable and Non-toxic
Eyes: Sclera Anicteric
Cardiovascular: S1/S2; Negative S3/S4
Pulmonary: Non Labored
Wound: Other (right second toe dressed)
Neurological: Awake
Psychological: Calm
Objective Data
Lab Data
Lab Results
05/10/23 07:54
05/10/23 07:54
Estimated Creat Clear 105 ml/min 05/10/23 07:54
Lactic Acid 1.7 mmol/L (0.7-2.0) 05/06/23 22:41
Total Bilirubin 0.7 mg/dl (0.2-1.3) 05/06/23 22:40
AST 16 U/L (14-36) 05/06/23 22:40
ALT 13 U/L (0-35) 05/06/23 22:40
Alkaline Phosphatase 140 U/L (38-126) H 05/06/23 22:40
Most recent labs reviewed.
Micro Results:
05/06/23 22:40 Blood Culture - Preliminary
Blood/Venous No Growth in 72 hours- Final report to follow
05/07/23 02:41 Wound Culture - Final
Foot - Right Staph aureus MRSA
Gram Stain - Final
05/07/23 02:41 Blood Culture - Preliminary
Blood/Venous No Growth in 72 hours- Final report to follow
05/07/23 13:40 MRSA Screen - Final
Nose No Methicillin Resistant Staphylococcus aureus isolated.
Imaging:
05/07/2023 X-ray right foot: On the right second toe, new, near complete resorption of the middle phalanx, and distortion of the proximal phalanx head with subtle cortical irregularity involving the shaft of the proximal phalanx. Findings are
consistent with osteomyelitis.
[2023-05-10] MEDS: CUBICIN 16 MG IV (15:15)
--- NOTE | 2023-05-10 17:53 | W.PN.UPDATE ---
Update Note
Progress Note Update
Patient underwent right second toe amputation. See surgical note. Bone cultures taken, toe sent for gross pathology. Bandages in place, reinforce as needed. Elevate extremity in bed, offload heels. Weightbearing as tolerated in surgical shoe.
Anticipate discharge when medically stable on short course of oral antibiotics pending final cultures/ID
[2023-05-10 18:02] LABS: Glucose - Point of Care 81 mg/dl (70-99)
[2023-05-10] MEDS: CYMBALTA DELAYED RELEASE 30 MG PO (18:41)
[2023-05-10] MEDS: NAMENDA 10 MG PO (18:41)
[2023-05-10 21:21] LABS: Glucose - Point of Care 105 mg/dl (70-99)
[2023-05-11] VITALS (7 sets, daily range): BP systolic 104–145; BP diastolic 62–80
[2023-05-11 07:32] LABS: Hemoglobin 9.3 g/dL (12.0-16.0); Mean Corp Hgb Conc. 32.1 g/dL (33.0-37.0); Mean Corpuscular Hgb 25.2 pg (27.0-31.0); Mean Corpuscular Volume 78.6 fL (81.0-99.0); Mean Platelet Volume 9.4 fL (7.4-10.4); Platelet Count 341 10^3/uL (130-400); Red Blood Cell Count 3.69 10^6/uL (4.20-5.40); Red Cell Dist. Width 15.7 % (11.5-14.5); White Blood Cell Count 7.2 10^3/uL (4.8-10.8)
[2023-05-11 07:52] LABS: Chloride 106 mmol/L (98-107); Potassium 4.4 mmol/L (3.5-5.1); Sodium 141 mmol/L (135-145)
[2023-05-11 08:00] LABS: Blood Urea Nitrogen 10 mg/dl (7-17); Calcium 9.9 mg/dl (8.4-10.2); Carbon Dioxide 26 mmol/L (22-30); Estimated Creatinine Clearance 105 ml/min; Glucose 132 mg/dl (70-99); eGFR > 60.00
[2023-05-11 08:42] LABS: Glucose - Point of Care 141 mg/dl (70-99)
[2023-05-11] MEDS: NOVOLOG FLEXPEN-LOW RESISTANCE SC ×2 (08:44→11:28)
--- NOTE | 2023-05-11 09:21 | W.PN.POD ---
Addendum entered and electronically signed by Saba Hooks DPM 05/11/23 09:40:
Physical exam:
Right foot: Foot is warm and perfused. bloody strikethrough on bandages, surgical site with sutures intact. No dehiscence, no erythema, no calor. Calves are not painful to palpation
Original Note:
Today's Communication
Today's Communication
S/P right 2nd toe amputation
Assessment / Plan
-
Type 2 DM with neuropathy
PAD
POD #1 - S/P Right 2nd toe amputation secondary to 2nd toe osteomyelitis with cellulitis
Bandages changed at bedside today. Plan for follow up with [facility] outpatient on Monday - 05/14 for bandage change. Patient will not require dressing changes or VNS
She may weight bear as tolerated in a surgical shoe. PT consulted.
Elevate foot and offload heels in bed
bone culture and pathology pending
Continue antibiotics per ID
Subjective
Chief Complaint
Right foot - S/P 2nd toe amputation
Subjective
Patient seen at beside. She is sleepy, in no apparent pain
Objective
Temp Pulse Resp BP Pulse Ox
98.9 F 81 22 104/67 96
05/11/23 07:50 05/11/23 07:50 05/11/23 07:50 05/11/23 07:50 05/11/23 07:50
05/11/23 07:05
05/11/23 07:05
Vital Signs and Lab results were reviewed.
[2023-05-11 11:14] LABS: Glucose - Point of Care 146 mg/dl (70-99)
[2023-05-11] MEDS: GLUCOTROL 5 MG PO (11:19)
[2023-05-11] MEDS: ELIQUIS 5 MG PO ×2 (11:20→20:20)
[2023-05-11] MEDS: NAMENDA 5 MG PO (11:21)
[2023-05-11] MEDS: PROTONIX 20 MG PO (11:27)
[2023-05-11] MEDS: TOPROL XL 25 MG PO (11:28)
[2023-05-11] MEDS: ZESTRIL 10 MG PO (11:28)
[2023-05-11] MEDS: ASPIR LOW (ENTERIC COATED) 81 MG PO (11:28)
[2023-05-11] MEDS: VITAMIN C 500 MG PO (11:29)
[2023-05-11] MEDS: TYLENOL 650 MG PO (11:42)
--- NOTE | 2023-05-11 12:06 | W.PN.HOSP.TC ---
Today's Communication/Plan
-
see A/P
Assessment / Plan
Assessment / Plan
A/P:
# acute osteomyelitis of Diabetic Rt foot wound infection
# Associated Rt foot cellulitis
Failed OP Augmentin
MRI Rt foot confirmed Acute osteomyelitis of the entire second toe with involvement of the proximal phalanx, middle phalanx, and distal phalanx. More localized destructive changes centered at the second proximal interphalangeal joint with a
contiguous dorsal soft tissue wound. Severe cellulitis about the second toe. Severe diabetic myopathy of the right foot.
s/p R right second toe amputation 05/09.
Follow Bone cultures
Weight-bear as tolerated in surgical shoe per stagecraft professor.
APPLICATION SUPPORT Eliquis has been resumed
IV Unasyn has been switched to IV Daptomycin by ID
PT OT eval recc HH
# Severe right lower extremity PVD
# s/p balloon angioplasty and FREDA to right superficial femoral artery/popliteal artery on 03/28
cont ASA and Atorvastatin
On Eliquis for Prx AF
Vascular consulted, she is maximally perfused, no interventions at this time
# T2DM
Hold metformin
cont. Glipizide
A1C 7.5%
add ISS low
# Severe iron deficiency anemia
On oral iron with vitamin C
# Sachi syndrome with Vancomycin
# Prx AF
APPLICATION SUPPORT metoprolol
Eliquis on hold
# HX stroke with residual aphasia, MCI, sundowning
cont APPLICATION SUPPORT statin, Namenda
APPLICATION SUPPORT Eliquis has been resumed
# Peptic ulcer disease
cont PPI
# Essential hypertension
cont lisinopril, metoprolol
# Anxiety,
mood stable on duloxetine
# Obesity due to excess calories
DVT ppx: APPLICATION SUPPORT Eliquis has been resumed
Anticipated Discharge: 24 - 48 hours
Subjective/Interval History
-
Date of Service: May 11, 2023
Objective Data
-
Labs:
Laboratory Results
05/11/23
07:05
WBC 7.2
Hgb 9.3 L
Hct 29.0 L
Plt Count 341
Sodium 141
Potassium 4.4
Chloride 106
Carbon Dioxide 26
BUN 10
Creatinine 0.6
Glucose 132 H
Calcium 9.9
Vital Signs:
Vital Signs
Temp Pulse Resp BP Pulse Ox
36.8 C 80 18 130/80 96
05/11/23 11:00 05/11/23 11:00 05/11/23 11:00 05/11/23 11:00 05/11/23 07:50
I&O
05/10/23 05/11/23 05/12/23
06:59 06:59 06:59
Intake Total 1080 / 1080
Output Total 300 / 300
Balance 1080 / 1080 -300 / -300
Review of Systems
-
All other systems: Reviewed and negative
Physical Exam
-
General: Well Developed, Well Nourished, No Apparent Distress, Comfortable and Obese
HEENT: Normocephalic and Atraumatic
Respiratory: Clear to Auscultation and Non Labored Respirations; Negative Wheezes or Accessory Resp Muscle Use
Cardiac: Regular Rhythm and S1/S2
Breast: Deferred by me
GI: Soft, Nontender and Nondistended
Rectal: Deferred by Provider
Genito-urinary: Deferred by me
Skin: Warm and Other (R foot in wound dressing)
Neuro: Awake and Alert
Psych: Calm and Intact Judgement/Insight
Data Reviewed
-
Labs: Labs Reviewed by me
--- NOTE | 2023-05-11 14:15 | VNURNOTE ---
Home health liaison spoke to spouse Tramaine on the phone about resuming [facility] services. Spouse is agreeable but states he is waiting to hear from physician on plan for discharge.
--- NOTE | 2023-05-11 15:45 | CM ---
Chart reviewed and plan is to home with [facility] when stable.
Plan; Home with [facility].
[2023-05-11] MEDS: CUBICIN 16 MG IV (16:30)
[2023-05-11 16:49] LABS: Glucose - Point of Care 172 mg/dl (70-99)
--- NOTE | 2023-05-11 17:40 | W.PN.ID1 ---
Date of Service
Date of Service: May 11, 2023
Today's Communication
Amputation likely curative
Switched to doxycycline - continue through the monday
Follow up with podiatry
Assessment / Plan
Right foot cellulitis
Right second toe wound with MRSA
Right second toe osteomyelitis (by x-ray appearance)
PAD
CVA
DM with neuropathy
Asthma
GERD
HTN
Recommendations:
Amputation likely curative
Switched to doxycycline - continue through the monday
Follow up with podiatry
����������������������������������������������������������
Chief Complaint
-: Other (Right second toe osteomyelitis.)
Subjective / Review of Systems
afebrile
bp stable
without leukocytosis
cr stable
sleeping - not disturbed
Vital Signs / Physical Exam
Vital Signs
Vital Signs
Temp Pulse Resp BP Pulse Ox
98.1 F 76 20 104/77 96
05/11/23 16:23 05/11/23 16:23 05/11/23 16:23 05/11/23 16:23 05/11/23 07:50
Physical Exam
Constitutional: No Acute Distress and Chronically Ill
Cardiovascular: Regular Rate
Pulmonary: Symmetric
Gastrointestinal: Non Distended
Extremities: Other (dressing clean, dry, intact)
Neurological: Negative Awake
Objective Data
Lab Data
Lab Results
05/11/23 07:05
05/11/23 07:05
Estimated Creat Clear 105 ml/min 05/11/23 07:05
Lactic Acid 1.7 mmol/L (0.7-2.0) 05/06/23 22:41
Total Bilirubin 0.7 mg/dl (0.2-1.3) 05/06/23 22:40
AST 16 U/L (14-36) 05/06/23 22:40
ALT 13 U/L (0-35) 05/06/23 22:40
Alkaline Phosphatase 140 U/L (38-126) H 05/06/23 22:40
Most recent labs reviewed.
Micro Results:
05/10/23 17:52 Anaerobic Culture - Preliminary
Toe Culture pending. Anaerobic cultures are examined after 3
days incubation. Additional information to follow.
05/10/23 17:52 Tissue Culture - Preliminary
Toe Gram Stain - Preliminary
05/07/23 02:41 Blood Culture - Preliminary
Blood/Venous No Growth in 4 days- Final report to follow
05/06/23 22:40 Blood Culture - Preliminary
Blood/Venous No Growth in 4 days- Final report to follow
05/07/23 02:41 Wound Culture - Final
Foot - Right Staph aureus MRSA
Gram Stain - Final
05/07/23 13:40 MRSA Screen - Final
Nose No Methicillin Resistant Staphylococcus aureus isolated.
Imaging:
05/07/2023 X-ray right foot: On the right second toe, new, near complete resorption of the middle phalanx, and distortion of the proximal phalanx head with subtle cortical irregularity involving the shaft of the proximal phalanx. Findings are
consistent with osteomyelitis.
[2023-05-11] MEDS: NOVOLOG FLEXPEN-LOW RESISTANCE 1 UNITS SC (18:53)
[2023-05-11] MEDS: NAMENDA 10 MG PO (18:53)
[2023-05-11] MEDS: CYMBALTA DELAYED RELEASE 30 MG PO (18:53)
[2023-05-11] MEDS: VIBRAMYCIN 100 MG PO (20:20)
[2023-05-11 21:12] LABS: Glucose - Point of Care 124 mg/dl (70-99)
[2023-05-12 07:36] LABS: Hematocrit 27.5 % (37.0-47.0); Hemoglobin 8.7 g/dL (12.0-16.0); Mean Corp Hgb Conc. 31.6 g/dL (33.0-37.0); Mean Corpuscular Hgb 25.1 pg (27.0-31.0); Mean Corpuscular Volume 79.5 fL (81.0-99.0); Mean Platelet Volume 9.3 fL (7.4-10.4); Platelet Count 316 10^3/uL (130-400); Red Blood Cell Count 3.46 10^6/uL (4.20-5.40); Red Cell Dist. Width 15.7 % (11.5-14.5); White Blood Cell Count 5.2 10^3/uL (4.8-10.8)
[2023-05-12 07:48] LABS: Glucose - Point of Care 147 mg/dl (70-99)
[2023-05-12 07:52] LABS: Blood Urea Nitrogen 10 mg/dl (7-17); Calcium 10.2 mg/dl (8.4-10.2); Carbon Dioxide 28 mmol/L (22-30); Chloride 105 mmol/L (98-107); Estimated Creatinine Clearance 105 ml/min; Glucose 146 mg/dl (70-99); Potassium 4.2 mmol/L (3.5-5.1); Sodium 138 mmol/L (135-145); eGFR > 60.00
[2023-05-12 08:45] VITALS: BP 131/65
[2023-05-12] MEDS: NOVOLOG FLEXPEN-LOW RESISTANCE SC (09:51)
[2023-05-12] MEDS: NAMENDA 5 MG PO (10:18)
[2023-05-12] MEDS: GLUCOTROL 5 MG PO (10:19)
[2023-05-12] MEDS: ZESTRIL 10 MG PO (10:19)
[2023-05-12] MEDS: ASPIR LOW (ENTERIC COATED) 81 MG PO (10:19)
[2023-05-12] MEDS: ELIQUIS 5 MG PO ×2 (10:19→21:03)
--- NOTE | 2023-05-12 10:19 | W.PN.HOSP.TC ---
Today's Communication/Plan
-
see A/P
Assessment / Plan
Assessment / Plan
A/P:
# acute osteomyelitis of Diabetic Rt foot wound infection
# Associated Rt foot cellulitis
Failed OP Augmentin
MRI Rt foot confirmed Acute osteomyelitis of the entire second toe with involvement of the proximal phalanx, middle phalanx, and distal phalanx. More localized destructive changes centered at the second proximal interphalangeal joint with a
contiguous dorsal soft tissue wound. Severe cellulitis about the second toe. Severe diabetic myopathy of the right foot.
s/p R right second toe amputation 05/09. Amputation likely curative
Follow Bone cultures
Weight-bear as tolerated in surgical shoe per technical training manager.
NETWORK OPERATIONS PROJECT MANAGER Eliquis has been resumed
IV Unasyn has been switched to IV Daptomycin by ID, recc to continue through the end of Monday
PT OT eval recc HH
# Severe right lower extremity PVD
# s/p balloon angioplasty and FREDA to right superficial femoral artery/popliteal artery on 03/28
cont ASA and Atorvastatin
On Eliquis for Prx AF
Vascular consulted, she is maximally perfused, no interventions at this time
# T2DM
Hold metformin
cont. Glipizide
A1C 7.5%
add ISS low
# Severe iron deficiency anemia
On oral iron with vitamin C
# Sachi syndrome with Vancomycin
# Prx AF
NETWORK OPERATIONS PROJECT MANAGER metoprolol
Eliquis on hold
# HX stroke with residual aphasia, MCI,
cont NETWORK OPERATIONS PROJECT MANAGER statin, Namenda
NETWORK OPERATIONS PROJECT MANAGER Eliquis has been resumed
# Peptic ulcer disease
cont PPI
# Essential hypertension
cont lisinopril, metoprolol
# Anxiety,
mood stable on duloxetine
# Obesity due to excess calories
DVT ppx: NETWORK OPERATIONS PROJECT MANAGER Eliquis has been resumed
Anticipated Discharge: 24 - 48 hours
Subjective/Interval History
-
Date of Service: May 12, 2023
Objective Data
-
Labs:
Laboratory Results
05/12/23
07:03
WBC 5.2
Hgb 8.7 L
Hct 27.5 L
Plt Count 316
Sodium 138
Potassium 4.2
Chloride 105
Carbon Dioxide 28
BUN 10
Creatinine 0.6
Glucose 146 H
Calcium 10.2
Vital Signs:
Vital Signs
Temp Pulse Resp BP Pulse Ox
36.6 C 69 18 131/65 98
05/12/23 08:45 05/12/23 08:45 05/12/23 08:45 05/12/23 08:45 05/12/23 08:45
I&O
05/11/23 05/12/23 05/13/23
06:59 06:59 06:59
Intake Total 680 / 680
Output Total 300 / 300
Balance -300 / -300 680 / 680
Review of Systems
-
All other systems: Reviewed and negative
Physical Exam
-
General: Well Developed, Well Nourished, No Apparent Distress, Comfortable and Obese
HEENT: Normocephalic and Atraumatic
Respiratory: Clear to Auscultation and Non Labored Respirations; Negative Wheezes or Accessory Resp Muscle Use
Cardiac: Regular Rhythm and S1/S2
Breast: Deferred by me
GI: Soft, Nontender and Nondistended
Rectal: Deferred by Provider
Genito-urinary: Deferred by me
Skin: Warm and Other (R foot in wound dressing)
Neuro: Awake and Alert
Psych: Calm and Intact Judgement/Insight
Data Reviewed
-
Labs: Labs Reviewed by me
[2023-05-12] MEDS: TOPROL XL 25 MG PO (10:20)
[2023-05-12] MEDS: VIBRAMYCIN 100 MG PO ×2 (10:20→21:04)
[2023-05-12] MEDS: PROTONIX 20 MG PO (10:20)
[2023-05-12 12:17] LABS: Glucose - Point of Care 244 mg/dl (70-99)
--- NOTE | 2023-05-12 12:32 | CM ---
Addendum entered by Gege Angel 05/12/23 16:32:
Family are waiting on updated physical therapy notes.
Original Note:
Chart reviewed and plan is to home when stable, will need to follow with ID progress notes, patient has been set up with [facility].
Plan; Home with [facility] when stable.
[2023-05-12] MEDS: VITAMIN C 500 MG PO (12:56)
[2023-05-12] MEDS: NOVOLOG FLEXPEN-LOW RESISTANCE 2 UNITS SC (13:03)
--- NOTE | 2023-05-12 14:58 | W.PN.ID1 ---
Date of Service
Date of Service: May 12, 2023
Today's Communication
Amputation likely curative
Switched to doxycycline - continue through the monday
Follow up with podiatry
Assessment / Plan
Right foot cellulitis
Right second toe wound with MRSA
Right second toe osteomyelitis (by x-ray appearance)
PAD
CVA
DM with neuropathy
Asthma
GERD
HTN
Recommendations:
Amputation likely curative
Switched to doxycycline - continue through the monday
Follow up with podiatry
����������������������������������������������������������
Chief Complaint
-: Other (Right second toe osteomyelitis.)
Subjective / Review of Systems
afebrile
bp stable
without leukocytosis
cr stable
tissue cultures no growth
Vital Signs / Physical Exam
Vital Signs
Vital Signs
Temp Pulse Resp BP Pulse Ox
97.9 F 69 18 131/65 98
05/12/23 08:45 05/12/23 08:45 05/12/23 08:45 05/12/23 08:45 05/12/23 08:45
Physical Exam
Constitutional: No Acute Distress
Cardiovascular: Regular Rate and S1/S2; Negative Murmur or Rub
Pulmonary: Clear and Symmetric; Negative Wheezes or Rales
Gastrointestinal: Soft, Non Tender, Non Distended and Normal Bowel Sounds
Skin: Warm and Dry; Negative Rash or Jaundice
Objective Data
Lab Data
Lab Results
05/12/23 07:03
05/12/23 07:03
Estimated Creat Clear 105 ml/min 05/12/23 07:03
Lactic Acid 1.7 mmol/L (0.7-2.0) 05/06/23 22:41
Total Bilirubin 0.7 mg/dl (0.2-1.3) 05/06/23 22:40
AST 16 U/L (14-36) 05/06/23 22:40
ALT 13 U/L (0-35) 05/06/23 22:40
Alkaline Phosphatase 140 U/L (38-126) H 05/06/23 22:40
Most recent labs reviewed.
Micro Results:
05/10/23 17:52 Tissue Culture - Preliminary
Toe Gram Stain - Preliminary
05/07/23 02:41 Blood Culture - Final
Blood/Venous No Growth - Final Report
05/06/23 22:40 Blood Culture - Final
Blood/Venous No Growth - Final Report
05/10/23 17:52 Anaerobic Culture - Preliminary
Toe Culture pending. Anaerobic cultures are examined after 3
days incubation. Additional information to follow.
05/07/23 02:41 Wound Culture - Final
Foot - Right Staph aureus MRSA
Gram Stain - Final
05/07/23 13:40 MRSA Screen - Final
Nose No Methicillin Resistant Staphylococcus aureus isolated.
Imaging:
05/07/2023 X-ray right foot: On the right second toe, new, near complete resorption of the middle phalanx, and distortion of the proximal phalanx head with subtle cortical irregularity involving the shaft of the proximal phalanx. Findings are
consistent with osteomyelitis.
Care Review
Plan reviewed with: Physician (Dr Spencer mann)
[2023-05-12 15:00] VITALS: BP 138/77
[2023-05-12 16:49] LABS: Glucose - Point of Care 162 mg/dl (70-99)
[2023-05-12] MEDS: NOVOLOG FLEXPEN-LOW RESISTANCE 1 UNITS SC (18:17)
[2023-05-12] MEDS: NAMENDA 10 MG PO (18:22)
[2023-05-12] MEDS: CYMBALTA DELAYED RELEASE 30 MG PO (18:22)
[2023-05-12] MEDS: TYLENOL 650 MG PO (21:04)
[2023-05-12] MEDS: MONISTAT 7 VAGINAL CREAM 1 APPLIC VAG (21:05)
[2023-05-12 21:35] LABS: Glucose - Point of Care 135 mg/dl (70-99)
[2023-05-12 23:40] VITALS: BP 113/59
[2023-05-13 07:07] LABS: Hematocrit 27.9 % (37.0-47.0); Mean Corp Hgb Conc. 32.3 g/dL (33.0-37.0); Mean Corpuscular Hgb 25.1 pg (27.0-31.0); Mean Corpuscular Volume 77.9 fL (81.0-99.0); Mean Platelet Volume 9.2 fL (7.4-10.4); Platelet Count 316 10^3/uL (130-400); Red Blood Cell Count 3.58 10^6/uL (4.20-5.40); Red Cell Dist. Width 15.5 % (11.5-14.5); White Blood Cell Count 5.4 10^3/uL (4.8-10.8)
[2023-05-13 07:28] LABS: Glucose - Point of Care 166 mg/dl (70-99)
[2023-05-13 07:30] VITALS: BP 158/78
[2023-05-13 07:33] LABS: Blood Urea Nitrogen 14 mg/dl (7-17); Calcium 10.6 mg/dl (8.4-10.2); Carbon Dioxide 27 mmol/L (22-30); Chloride 107 mmol/L (98-107); Estimated Creatinine Clearance 105 ml/min; Glucose 159 mg/dl (70-99); Potassium 4.3 mmol/L (3.5-5.1); Sodium 139 mmol/L (135-145); eGFR > 60.00
--- NOTE | 2023-05-13 07:48 | W.PN.POD ---
Today's Communication
Today's Communication
S/P right 2nd toe ampuation
Assessment / Plan
-
Type 2 DM with neuropathy
PAD
POD #3 - S/P Right 2nd toe amputation secondary to 2nd toe osteomyelitis with cellulitis
Bandages changed at bedside today. Plan for follow up with me outpatient next week. Patient will not require dressing changes or VNS
She may weight bear as tolerated in a surgical shoe. PT/OT consulted.
Elevate foot and offload heels in bed - heel offloading device ordered
bone culture and pathology pending
Continue Doxycycline per ID
Subjective
Chief Complaint
S/P right 2nd toe amputation
Subjective
Patient seen at bedside, awake. No complaints of pain
Objective
Temp Pulse Resp BP Pulse Ox
97.2 F 64 18 113/59 97
05/12/23 23:40 05/12/23 23:40 05/12/23 23:40 05/12/23 23:40 05/12/23 23:40
05/13/23 06:31
05/13/23 06:31
Vital Signs and Lab results were reviewed.
Physical Exam
Physical Exam
Right foot: Pulses palpable, CFT WNL, surgical incision with sutures intact, no erythema, no drainage, no signs of dehiscence.
[2023-05-13] MEDS: ASPIR LOW (ENTERIC COATED) 81 MG PO (08:35)
[2023-05-13] MEDS: TOPROL XL 25 MG PO (08:35)
[2023-05-13] MEDS: VIBRAMYCIN 100 MG PO ×2 (08:35→20:32)
[2023-05-13] MEDS: PROTONIX 20 MG PO (08:35)
[2023-05-13] MEDS: NAMENDA 5 MG PO (08:36)
[2023-05-13] MEDS: ELIQUIS 5 MG PO ×2 (08:38→20:32)
[2023-05-13] MEDS: GLUCOTROL 5 MG PO (08:38)
[2023-05-13] MEDS: ZESTRIL 10 MG PO (08:39)
[2023-05-13] MEDS: NOVOLOG FLEXPEN-LOW RESISTANCE 1 UNITS SC (08:39)
--- NOTE | 2023-05-13 10:34 | W.PN.HOSP.TC ---
Today's Communication/Plan
-
see AP
Assessment / Plan
Assessment / Plan
A/P:
# acute osteomyelitis of Diabetic Rt foot wound infection
# Associated Rt foot cellulitis
Failed OP Augmentin
MRI Rt foot confirmed acute osteomyelitis of the entire second toe with involvement of the proximal phalanx, middle phalanx, and distal phalanx. More localized destructive changes centered at the second proximal interphalangeal joint with a
contiguous dorsal soft tissue wound. Severe cellulitis about the second toe. Severe diabetic myopathy of the right foot.
s/p R right second toe amputation 05/09. Amputation likely curative
Follow Bone cultures
Weight-bear as tolerated in surgical shoe per bond clerk.
TERADATA SOLUTION ARCHITECT Eliquis has been resumed
IV Unasyn -> IV Daptomycin -> PO doxycycline through the end of Monday
PT OT eval recc HH
# Severe right lower extremity PVD
# s/p balloon angioplasty and FREDA to right superficial femoral artery/popliteal artery on 03/28
cont ASA and Atorvastatin
On Eliquis for Prx AF
Vascular consulted, she is maximally perfused, no interventions at this time
# T2DM
Hold metformin
cont. Glipizide
A1C 7.5%
added ISS low
# Severe iron deficiency anemia
On oral iron with vitamin C
# Sachi syndrome with Vancomycin
# Prx AF
TERADATA SOLUTION ARCHITECT metoprolol
resumed Eliquis
# HX stroke with residual aphasia, MCI,
cont TERADATA SOLUTION ARCHITECT statin, Namenda
TERADATA SOLUTION ARCHITECT Eliquis has been resumed
# Peptic ulcer disease
cont PPI
# Essential hypertension
cont lisinopril, metoprolol
# Anxiety,
mood stable on duloxetine
# Obesity due to excess calories
DVT ppx: TERADATA SOLUTION ARCHITECT Eliquis has been resumed
DW RN
DW daughter at bedside
Anticipated Discharge: 24 - 48 hours
Subjective/Interval History
-
Date of Service: May 13, 2023
Objective Data
-
Labs:
Laboratory Results
05/13/23
06:31
WBC 5.4
Hgb 9.0 L
Hct 27.9 L
Plt Count 316
Sodium 139
Potassium 4.3
Chloride 107
Carbon Dioxide 27
BUN 14
Creatinine 0.6
Glucose 159 H
Calcium 10.6 H
Vital Signs:
Vital Signs
Temp Pulse Resp BP Pulse Ox
36.7 C 70 18 158/78 97
05/13/23 07:30 05/13/23 08:35 05/13/23 07:30 05/13/23 08:35 05/13/23 07:30
I&O
05/12/23 05/13/23 05/14/23
06:59 06:59 06:59
Intake Total 680 / 680 550 / 550
Balance 680 / 680 550 / 550
Review of Systems
-
All other systems: Reviewed and negative
Physical Exam
-
General: Well Developed, Well Nourished, No Apparent Distress, Comfortable and Obese
HEENT: Normocephalic and Atraumatic
Respiratory: Clear to Auscultation and Non Labored Respirations; Negative Wheezes or Accessory Resp Muscle Use
Cardiac: Regular Rhythm and S1/S2
Breast: Deferred by me
GI: Soft, Nontender and Nondistended
Rectal: Deferred by Provider
Genito-urinary: Deferred by me
Skin: Warm and Other (R foot in wound dressing)
Neuro: Awake and Alert
Psych: Calm and Intact Judgement/Insight
Data Reviewed
-
Labs: Labs Reviewed by me
[2023-05-13 11:16] LABS: Glucose - Point of Care 149 mg/dl (70-99)
[2023-05-13 11:38] LABS: Glucose - Point of Care 148 mg/dl (70-99)
[2023-05-13] MEDS: NOVOLOG FLEXPEN-LOW RESISTANCE SC ×2 (11:43→17:19)
[2023-05-13] MEDS: VITAMIN C 500 MG PO (12:05)
[2023-05-13 16:30] VITALS: BP 134/65
[2023-05-13 17:18] LABS: Glucose - Point of Care 116 mg/dl (70-99)
[2023-05-13] MEDS: NAMENDA 10 MG PO (17:29)
[2023-05-13] MEDS: CYMBALTA DELAYED RELEASE 30 MG PO (17:29)
[2023-05-13] MEDS: TYLENOL 650 MG PO (20:32)
[2023-05-13] MEDS: MONISTAT 7 VAGINAL CREAM VAG (20:41)
[2023-05-13 21:09] LABS: Glucose - Point of Care 145 mg/dl (70-99)
[2023-05-13 23:00] VITALS: BP 157/69
[2023-05-14] MEDS: MONISTAT 7 VAGINAL CREAM VAG ×2 (04:59→21:32)
[2023-05-14 06:26] LABS: Hematocrit 27.7 % (37.0-47.0); Hemoglobin 8.6 g/dL (12.0-16.0); Mean Corpuscular Hgb 24.5 pg (27.0-31.0); Mean Corpuscular Volume 78.9 fL (81.0-99.0); Mean Platelet Volume 9.3 fL (7.4-10.4); Platelet Count 310 10^3/uL (130-400); Red Blood Cell Count 3.51 10^6/uL (4.20-5.40); Red Cell Dist. Width 15.3 % (11.5-14.5); White Blood Cell Count 5.4 10^3/uL (4.8-10.8)
[2023-05-14 06:54] LABS: Blood Urea Nitrogen 16 mg/dl (7-17); Calcium 10.5 mg/dl (8.4-10.2); Carbon Dioxide 25 mmol/L (22-30); Chloride 108 mmol/L (98-107); Estimated Creatinine Clearance 90 ml/min; Glucose 126 mg/dl (70-99); Potassium 4.1 mmol/L (3.5-5.1); Sodium 139 mmol/L (135-145); eGFR > 60.00
[2023-05-14 07:54] VITALS: BP 163/92
[2023-05-14 08:13] LABS: Glucose - Point of Care 119 mg/dl (70-99)
[2023-05-14] MEDS: ASPIR LOW (ENTERIC COATED) 81 MG PO (09:24)
[2023-05-14] MEDS: NAMENDA 5 MG PO (09:24)
[2023-05-14] MEDS: VIBRAMYCIN 100 MG PO ×2 (09:24→19:48)
[2023-05-14] MEDS: GLUCOTROL 5 MG PO (09:24)
[2023-05-14] MEDS: PROTONIX 20 MG PO (09:29)
[2023-05-14] MEDS: ELIQUIS 5 MG PO ×2 (09:30→19:48)
[2023-05-14] MEDS: TOPROL XL 25 MG PO (09:30)
[2023-05-14] MEDS: NOVOLOG FLEXPEN-LOW RESISTANCE SC ×2 (09:30→16:53)
[2023-05-14] MEDS: ZESTRIL 10 MG PO (09:34)
[2023-05-14 12:30] LABS: Glucose - Point of Care 196 mg/dl (70-99)
[2023-05-14] MEDS: VITAMIN C 500 MG PO (12:31)
[2023-05-14] MEDS: NOVOLOG FLEXPEN-LOW RESISTANCE 1 UNITS SC (12:31)
--- NOTE | 2023-05-14 12:33 | W.PN.HOSP.TC ---
Today's Communication/Plan
-
see A/P
Assessment / Plan
Assessment / Plan
A/P:
# acute osteomyelitis of Diabetic Rt foot wound infection
# Associated Rt foot cellulitis
Failed OP Augmentin
MRI Rt foot confirmed acute osteomyelitis of the entire second toe with involvement of the proximal phalanx, middle phalanx, and distal phalanx. More localized destructive changes centered at the second proximal interphalangeal joint with a
contiguous dorsal soft tissue wound. Severe cellulitis about the second toe. Severe diabetic myopathy of the right foot.
s/p R right second toe amputation 05/09. Amputation likely curative
Follow Bone cultures
Weight-bear as tolerated in surgical shoe per product introduction manager.
MANAGER BEHAVIORAL Eliquis has been resumed
IV Unasyn -> IV Daptomycin -> PO doxycycline through the end of Monday
PT OT eval recc HH
# Severe right lower extremity PVD
# s/p balloon angioplasty and FREDA to right superficial femoral artery/popliteal artery on 03/28
cont ASA and Atorvastatin
On Eliquis for Prx AF
Vascular consulted, she is maximally perfused, no interventions at this time
# T2DM
Hold metformin
cont. Glipizide
A1C 7.5%
added ISS low
# Severe iron deficiency anemia
On oral iron with vitamin C
# Sachi syndrome with Vancomycin
# Prx AF
MANAGER BEHAVIORAL metoprolol
resumed Eliquis
# HX stroke with residual aphasia, MCI,
cont MANAGER BEHAVIORAL statin, Namenda
MANAGER BEHAVIORAL Eliquis has been resumed
# Peptic ulcer disease
cont PPI
# Essential hypertension
cont lisinopril, metoprolol
# Anxiety,
mood stable on duloxetine
# Obesity due to excess calories
DVT ppx: MANAGER BEHAVIORAL Eliquis has been resumed
DW RN
Anticipated Discharge: Within 24 hours
Subjective/Interval History
-
Date of Service: May 14, 2023
Objective Data
-
Labs:
Laboratory Results
05/14/23
05:52
WBC 5.4
Hgb 8.6 L
Hct 27.7 L
Plt Count 310
Sodium 139
Potassium 4.1
Chloride 108 H
Carbon Dioxide 25
BUN 16
Creatinine 0.7
Glucose 126 H
Calcium 10.5 H
Vital Signs:
Vital Signs
Temp Pulse Resp BP Pulse Ox
36.8 C 76 18 163/92 100
05/14/23 07:54 05/14/23 07:54 05/14/23 07:54 05/14/23 07:54 05/14/23 07:54
I&O
05/13/23 05/14/23 05/15/23
06:59 06:59 06:59
Intake Total 550 / 550 120 / 120 200 / 200
Balance 550 / 550 120 / 120 200 / 200
Review of Systems
-
All other systems: Reviewed and negative
Physical Exam
-
General: Well Developed, Well Nourished, No Apparent Distress, Comfortable and Obese
HEENT: Normocephalic and Atraumatic
Respiratory: Clear to Auscultation and Non Labored Respirations; Negative Wheezes or Accessory Resp Muscle Use
Cardiac: Regular Rhythm and S1/S2
Breast: Deferred by me
GI: Soft, Nontender and Nondistended
Rectal: Deferred by Provider
Genito-urinary: Deferred by me
Skin: Warm and Other (R foot in wound dressing)
Neuro: Awake and Alert
Psych: Calm and Intact Judgement/Insight
Data Reviewed
-
Labs: Labs Reviewed by me
[2023-05-14 15:06] VITALS: BP 134/74
[2023-05-14 16:35] LABS: Glucose - Point of Care 142 mg/dl (70-99)
[2023-05-14] MEDS: CYMBALTA DELAYED RELEASE 30 MG PO (17:49)
[2023-05-14] MEDS: NAMENDA 10 MG PO (17:49)
--- NOTE | 2023-05-14 18:31 | W.PN.UPDATE ---
Update Note
Progress Note Update
OR tissue cx + Pasteurella multocida. Added Augmentin 875mg po bid x 7 days.
[2023-05-14] MEDS: AUGMENTIN 875 MG/125 MG 1 TABLET PO (19:49)
[2023-05-14 21:16] LABS: Glucose - Point of Care 186 mg/dl (70-99)
[2023-05-14 23:35] VITALS: BP 104/63
[2023-05-15 07:11] LABS: Hematocrit 28.6 % (37.0-47.0); Hemoglobin 9.1 g/dL (12.0-16.0); Mean Corp Hgb Conc. 31.8 g/dL (33.0-37.0); Mean Corpuscular Hgb 24.7 pg (27.0-31.0); Mean Corpuscular Volume 77.5 fL (81.0-99.0); Mean Platelet Volume 9.4 fL (7.4-10.4); Platelet Count 340 10^3/uL (130-400); Red Blood Cell Count 3.69 10^6/uL (4.20-5.40); Red Cell Dist. Width 15.5 % (11.5-14.5); White Blood Cell Count 6.8 10^3/uL (4.8-10.8)
[2023-05-15 07:29] LABS: Blood Urea Nitrogen 13 mg/dl (7-17); Calcium 10.1 mg/dl (8.4-10.2); Carbon Dioxide 23 mmol/L (22-30); Chloride 109 mmol/L (98-107); Estimated Creatinine Clearance 105 ml/min; Glucose 208 mg/dl (70-99); Potassium 4.3 mmol/L (3.5-5.1); Sodium 138 mmol/L (135-145); eGFR > 60.00
[2023-05-15 08:51] VITALS: BP 149/81
[2023-05-15 09:04] LABS: Glucose - Point of Care 180 mg/dl (70-99)
[2023-05-15] MEDS: NOVOLOG FLEXPEN-LOW RESISTANCE 1 UNITS SC (09:27)
[2023-05-15] MEDS: PROTONIX 20 MG PO (09:28)
[2023-05-15] MEDS: GLUCOTROL 5 MG PO (09:28)
[2023-05-15] MEDS: AUGMENTIN 875 MG/125 MG 1 TABLET PO (09:29)
[2023-05-15] MEDS: VIBRAMYCIN 100 MG PO (09:30)
[2023-05-15] MEDS: NAMENDA 5 MG PO (09:30)
[2023-05-15] MEDS: ELIQUIS 5 MG PO (09:30)
[2023-05-15] MEDS: ASPIR LOW (ENTERIC COATED) 81 MG PO (09:30)
[2023-05-15] MEDS: TOPROL XL 25 MG PO (09:31)
[2023-05-15] MEDS: ZESTRIL 10 MG PO (09:32)
--- NOTE | 2023-05-15 12:05 | VNURNOTE ---
[facility] resumption of care completed in [facility] after review of chart.
[2023-05-15 12:19] LABS: Glucose - Point of Care 238 mg/dl (70-99)
[2023-05-15] MEDS: NOVOLOG FLEXPEN-LOW RESISTANCE 2 UNITS SC (12:29)
[2023-05-15] MEDS: VITAMIN C 500 MG PO (12:29)
--- NOTE | 2023-05-15 12:30 | W.PN.HOSP.TC ---
Addendum entered and electronically signed by Josue Gomes MD 05/15/23 16:00:
[id number]
Original Note:
Today's Communication/Plan
-
PO doxycycline through the end of Monday; OR tissue cx + Pasteurella multocida. Added Augmentin 875mg po bid x 7 days.
weight bear as tolerated in a surgical shoe.
Elevate foot and offload heels in bed - heel offloading device
F/u Podiatry, PCP outpatient
Assessment / Plan
Assessment / Plan
A/P:
# acute osteomyelitis of Diabetic Rt foot wound infection
# Associated Rt foot cellulitis
Failed OP Augmentin
MRI Rt foot confirmed acute osteomyelitis of the entire second toe with involvement of the proximal phalanx, middle phalanx, and distal phalanx. More localized destructive changes centered at the second proximal interphalangeal joint with a
contiguous dorsal soft tissue wound. Severe cellulitis about the second toe. Severe diabetic myopathy of the right foot.
s/p R right second toe amputation 05/09. Amputation likely curative
Follow Bone cultures: OR tissue cx + Pasteurella multocida.
Weight-bear as tolerated in surgical shoe per striper.
SUPERINTENDENT MENAGERIE Eliquis has been resumed
IV Unasyn -> IV Daptomycin -> PO doxycycline through the end of Monday; OR tissue cx + Pasteurella multocida. Added Augmentin 875mg po bid x 7 days.
PT OT eval recc HH
# Severe right lower extremity PVD
# s/p balloon angioplasty and FREDA to right superficial femoral artery/popliteal artery on 03/28
cont ASA and Atorvastatin
On Eliquis for Prx AF
Vascular consulted, she is maximally perfused, no interventions at this time
# T2DM
Hold metformin
cont. Glipizide
A1C 7.5%
added ISS low
# Severe iron deficiency anemia
On oral iron with vitamin C
# Sachi syndrome with Vancomycin
# Prx AF
SUPERINTENDENT MENAGERIE metoprolol
resumed Eliquis
# HX stroke with residual aphasia, MCI, sundowning
cont SUPERINTENDENT MENAGERIE statin, Namenda
SUPERINTENDENT MENAGERIE Eliquis has been resumed
# Peptic ulcer disease
cont PPI
# Essential hypertension
cont lisinopril, metoprolol
# Anxiety,
mood stable on duloxetine
# Obesity due to excess calories
DVT ppx: SUPERINTENDENT MENAGERIE Eliquis has been resumed
DW RN
Anticipated Discharge: Today
Subjective/Interval History
-
Date of Service: May 15, 2023
no acute events
Objective Data
-
Labs:
Laboratory Results
05/15/23
05:50
WBC 6.8
Hgb 9.1 L
Hct 28.6 L
Plt Count 340
Sodium 138
Potassium 4.3
Chloride 109 H
Carbon Dioxide 23
BUN 13
Creatinine 0.6
Glucose 208 H
Calcium 10.1
Vital Signs:
Vital Signs
Temp Pulse Resp BP Pulse Ox
98.8 F 70 18 149/81 94
05/15/23 08:51 05/15/23 08:51 05/15/23 08:51 05/15/23 08:51 05/15/23 08:51
I&O
05/14/23 05/15/23 05/16/23
06:59 06:59 06:59
Intake Total 120 / 120 1640 / 1640
Balance 120 / 120 1640 / 1640
Review of Systems
-
History Source: Patient
All other systems: Not reviewed unless documented
Physical Exam
-
General: Well Developed, Well Nourished, No Apparent Distress, Comfortable and Obese
HEENT: Normocephalic and Atraumatic
Respiratory: Clear to Auscultation and Non Labored Respirations; Negative Wheezes or Accessory Resp Muscle Use
Cardiac: Regular Rhythm and S1/S2
Breast: Deferred by me
GI: Soft, Nontender and Nondistended
Rectal: Deferred by Provider
Genito-urinary: Deferred by me
Skin: Warm and Other (R foot in wound dressing)
Neuro: Awake and Alert
Psych: Calm and Intact Judgement/Insight
Data Reviewed
-
Diagnostic Radiology: Image personally visualized and interpreted and Report Reviewed by me
MRI: Image personally visualized and interpreted and Report Reviewed by me
Labs: Labs Reviewed by me
--- NOTE | 2023-05-15 12:34 | W.DS.TRANS ---
DC Summary - [employer] Pro[employer]
-
Discharge Instructions:
Discharge Diagnosis/Procedures # acute osteomyelitis of Diabetic Rt foot wound
infection
# Associated Rt foot cellulitis
Diet Diabetic, Carb Controlled,Low Cholesterol,Low
Fiber
Activity As tolerated
Instructions:
Stand-Alone Forms:
Changes to Home Medications: Yes
Discharge Medications:
DC Medications w/original date entered in [employer]
albuterol sulfate 90 mcg/actuation aerosol inhaler 2 puff inhalation R Q6HPRN PRN sob ##0 05/21/21
atorvastatin 40 mg tablet 40 mg PO QPM High cholesterol 05/21/21
metformin 1,000 mg tablet 1,000 mg PO BID@0800,1700 Diabetes 05/21/21
pantoprazole 20 mg tablet,delayed release (Protonix) 20 mg PO DAILY Gastrointestinal issue 05/21/21
duloxetine 30 mg capsule,delayed release 30 mg PO QPM Mental Health/Anxiety 10/25/21
dupilumab 300 mg/2 mL subcutaneous pen injector (Dupixent) 300 mg SC WEEKLY Lung/breathing issues 10/25/21
lisinopril 10 mg tablet 10 mg PO Daily Blood pressure 10/25/21
glipizide 5 mg tablet 5 mg PO DAILY #30 tabs 03/16/22
apixaban 5 mg tablet (Eliquis) 5 mg PO BID Blood Clot Prevention/Tx 03/23/23
memantine 10 mg tablet 10 mg PO QPM memory impairment 03/23/23
metoprolol succinate 25 mg tablet,extended release 24 hr (Toprol XL) 25 mg PO DAILY Blood Pressure 03/23/23
ascorbic acid (vitamin C) 500 mg tablet (Vitamin C) 500 mg PO NOON #30 tabs 03/29/23
aspirin 81 mg tablet,delayed release 81 mg PO DAILY #30 tabs 03/29/23
ferrous sulfate 325 mg (65 mg iron) tablet (FeroSul) 325 mg PO NOON #30 tabs 03/29/23
memantine 5 mg tablet 5 mg PO DAILY memory impairment 05/07/23
amoxicillin 875 mg-potassium clavulanate 125 mg tablet 1 tab PO Q12 6 days #12 tabs 05/15/23
doxycycline hyclate 100 mg capsule 100 mg PO Q12 1 day #2 caps 05/15/23
miconazole nitrate 2 % vaginal cream 1 applic vaginal HS 7 days #45 grams 05/15/23
Home Medication Changes
amoxicillin 875 mg-potassium clavulanate 125 mg tablet 1 tab PO Q12 6 days #12 tabs 05/15/23
doxycycline hyclate 100 mg capsule 100 mg PO Q12 1 day #2 caps 05/15/23
miconazole nitrate 2 % vaginal cream 1 applic vaginal HS 7 days #45 grams 05/15/23
Pending Results: No
--- NOTE | 2023-05-15 12:39 | CM ---
Home with [facility].
Plan; Home with [facility].
[2023-05-15 13:01] VITALS: BP 130/78
== END 2023-05-15 14:05 | disposition home health service (06) | DRG 617 ==
LOC: 4 WEST ACU 03:26
PROVIDERS: Emergency Medicine; Internal Medicine; ADMITTING PHYSICIAN Internal Medicine; ATTENDING PHYSICIAN Internal Medicine; CONSULT PHYSICIAN Internal Medicine Infectious Disease; CONSULT PHYSICIAN Podiatrist; EMERGENCY PHYSICIAN Emergency Medicine; FAMILY PHYSICIAN Family Medicine; OTHER PHYSICIAN Nurse Practitioner
PROC: 0Y6R0Z0 Detachment at Right 2nd Toe, Complete, Open Approach (ICD-10-PCS; 2023-05-10)
DX: E11.69 Type 2 diabetes mellitus with other specified complication (principal); A28.0 Pasteurellosis; L03.115 Cellulitis of right lower limb; M86.171 Other acute osteomyelitis, right ankle and foot; L97.519 Non-pressure chronic ulcer of other part of right foot with unspecified severity; I48.0 Paroxysmal atrial fibrillation; R41.3 Other amnesia; E11.40 Type 2 diabetes mellitus with diabetic neuropathy, unspecified; E11.621 Type 2 diabetes mellitus with foot ulcer; E21.3 Hyperparathyroidism, unspecified; K21.9 Gastro-esophageal reflux disease without esophagitis; J45.909 Unspecified asthma, uncomplicated; E11.51 Type 2 diabetes mellitus with diabetic peripheral angiopathy without gangrene; I10 Essential (primary) hypertension; D50.9 Iron deficiency anemia, unspecified; E78.00 Pure hypercholesterolemia, unspecified; L03.031 Cellulitis of right toe; F41.9 Anxiety disorder, unspecified; E66.09 Other obesity due to excess calories; Z87.11 Personal history of peptic ulcer disease; Z79.01 Long term (current) use of anticoagulants; I69.320 Aphasia following cerebral infarction; Z79.84 Long term (current) use of oral hypoglycemic drugs; Z79.82 Long term (current) use of aspirin; Z88.1 Allergy status to other antibiotic agents; Z88.5 Allergy status to narcotic agent; Z68.35 Body mass index [BMI] 35.0-35.9, adult
CPT/HCPCS: 88305; 88311; 73630; 73720; 80048; 80053; 82962; 83036; 83605; 85025; 85027; 87040; 87070; 87075; 87077; 87147; 87176; 87186; 87205; 94640; 96365; 97116; 97162; 97166; 99284; A9575; J0878

== ENCOUNTER → 2023-06-29 14:47 | Outpatient (REF) | payer OTHER, SELFPAY | LOC: RAD 14:47 | PROVIDERS: ATTENDING PHYSICIAN Surgery; FAMILY PHYSICIAN Family Medicine | DX: L02.11 Cutaneous abscess of neck (principal) | CPT/HCPCS: 76536 ==

== ENCOUNTER 2023-09-04 19:10 | Outpatient (RCR) | payer OTHER, SELFPAY | END 2023-09-04 23:59 | disposition home or self-care (01) | LOC: RPT 19:10 | PROVIDERS: ATTENDING PHYSICIAN Family Medicine | DX: R26.89 Other abnormalities of gait and mobility (principal); Z73.6 Limitation of activities due to disability | CPT/HCPCS: 97110; 97112; 97163; 97530 ==

== ENCOUNTER 2023-09-13 18:53 | Outpatient (RCR) | payer OTHER, SELFPAY | END 2023-09-13 23:59 | disposition home or self-care (01) | LOC: RPT 18:53 | PROVIDERS: ATTENDING PHYSICIAN Family Medicine | DX: R26.89 Other abnormalities of gait and mobility (principal); Z73.6 Limitation of activities due to disability; Z91.81 History of falling | CPT/HCPCS: 97110; 97112; 97116; 97530 ==

== ENCOUNTER → 2023-09-27 13:12 | Outpatient (REF) | payer OTHER, SELFPAY | LOC: RAD 13:12 | PROVIDERS: ATTENDING PHYSICIAN Registered Nurse; FAMILY PHYSICIAN Family Medicine | DX: I70.235 Atherosclerosis of native arteries of right leg with ulceration of other part of foot (principal); I73.9 Peripheral vascular disease, unspecified | CPT/HCPCS: 93922; 93925 ==

== ENCOUNTER 2023-11-01 18:58 | Outpatient (RCR) | payer OTHER, SELFPAY | END 2023-11-06 07:34 | disposition home or self-care (01) | LOC: RPT 18:58 | PROVIDERS: ATTENDING PHYSICIAN Family Medicine | DX: R26.89 Other abnormalities of gait and mobility (principal); Z73.6 Limitation of activities due to disability; R26.2 Difficulty in walking, not elsewhere classified | CPT/HCPCS: 97110; 97112; 97530 ==

== ENCOUNTER 2023-12-19 09:02 | Emergency (ER) | payer OTHER, SELFPAY ==
[2023-12-19 09:03] VITALS: BP 158/92
[2023-12-19 09:24] LABS: % Basophils 0.5 % (0-2); % Eosinophils 1.7 % (0-6); % Immature Granulocytes 0.4 % (0-0.5); % Monocytes 9.3 % (1.7-9.3); % Neutrophils 75.1 % (42.2-75.2); Absolute Basophils 0.1 10^3/uL (0-0.2); Absolute Eosinophils 0.2 10^3/uL (0-0.7); Absolute Lymphocytes 1.5 10^3/uL (1.2-3.4); Absolute Neutrophils 8.4 10^3/uL (1.4-6.5); Hematocrit 33.6 % (37.0-47.0); Hemoglobin 10.8 g/dL (12.0-16.0); Mean Corp Hgb Conc. 32.1 g/dL (33.0-37.0); Mean Corpuscular Hgb 23.4 pg (27.0-31.0); Mean Corpuscular Volume 72.7 fL (81.0-99.0); Mean Platelet Volume 10.7 fL (7.4-10.4); Platelet Count 210 10^3/uL (130-400); Red Blood Cell Count 4.62 10^6/uL (4.20-5.40); Red Cell Dist. Width 15.9 % (11.5-14.5); White Blood Cell Count 11.2 10^3/uL (4.8-10.8)
[2023-12-19 09:25] LABS: Nucleated Red Blood Cells % 0 %
[2023-12-19 09:48] LABS: ALT (SGPT) 14 U/L (0-35); AST (SGOT) 13 U/L (14-36); Albumin 4.2 g/dl (3.5-5.0); Alkaline Phosphatase 125 U/L (38-126); Blood Urea Nitrogen 13 mg/dl (7-17); Calcium 10.4 mg/dl (8.4-10.2); Carbon Dioxide 22 mmol/L (22-30); Chloride 104 mmol/L (98-107); Glucose 174 mg/dl (70-99); Potassium 4.1 mmol/L (3.5-5.1); Sodium 139 mmol/L (135-145); Total Bilirubin 0.8 mg/dl (0.2-1.3); Total Protein 6.7 g/dl (6.3-8.2); eGFR > 60.00
--- NOTE | 2023-12-19 10:15 | ED.GENMED ---
History of Present Illness
General
Chief Complaint: Facial Problem
Source: family
Exam Limitations: non verbal-adult and other (stroke)
Time Seen by Provider: 12/19/23 10:00
Nursing documentation reviewed up to this point in time: agreed with
History of Present Illness
History of Present Illness:
pt is a 53 y/o F NIDDM, thalamic stroke, cognitive issues from stroke
here with R facial swelling this morning
pt apparently had a 'pimple' to right cheek noticed a few days ago
yesterday it looked a little biggger so her who is a physician called in augmentin. she took 2 doses of augmentin yesterday
woke up today with more redness and swelling
she has pretty severe cognitive effects from her stroke
she
pt is not able to provide history
no clear dental component
no known fever, vomiting.
Past History
Past History
ED Past Medical History: Asthma, CVA, GERD, HTN, NIDDM and Other (Peptic ulcer disease, bowel obstruction, hyperparathyroidism, non healing wound LLE)
ED Past Surgical History: Appendectomy, Cholecystectomy, and Other (Lysis of adhesions, 2001 hernia repair with mesh, 2005 mesh removed,)
Patient has exhibited threatening behavior?: No
PSI?: No
Social History
Tobacco: Non-smoker
Alcohol: None
Drug: None
Personal:
Living: with family
Employment: Not employed
Family History
Family History: Other (Noncontributory)
Review of Systems
Review of Systems
Allergies reviewed?: Yes
Unable to obtain full review of systems at this time due to: non-verbal
Other source history: family
All Other Systems: Not applicable
Phy Exam
Physical Exam
Physical Exam:
GENERAL: Alert , in no apparent distress
face: right maxillary swelling modeate with induration aprox 3 x3 cm with tnederness
small pustule right lateral aspect
the redness and swelikng includes up to the lower lid margin
EYE: pupils equal and reactive, EOMS intact, no appreciated pain with eye movement
sneck: supple
ENT: o/p clr, mmm.
CARDIAC: Regular rate and rhythm .
LUNGS: Clear breath sounds bilaterally, no acute respiratory distress, no wheezes/rales/rhonchi
SKIN: Warm and dry, skin intact.
redness
MUSCULOSKELETAL: No edema, well perfused. neg vernon's sign
PSYCH: Normal and appropriate interaction.
Course
Orders/Labs/Results
Orders:
Orders
12/19/23 09:16
Complete Blood Count/With Diff Urgent
Comprehensive Metabolic Panel Urgent
12/19/23 10:13
CT Facial Bones W/ Iv Contrast Urgent
Comment:
Reason For Exam: facial abscess, rapid progression, cellulitis
12/19/23 10:33
Lactic Acid Urgent
Blood Culture Urgent
LEO Source: Blood/Venous
Specimen Description:
12/19/23 13:06
Sulfamethox./Trimethoprim Ds [Bactrim Ds 800 mg/160 mg] 2 tablet PO NOW STA
12/19/23 13:17
Ampicillin/Sulbactam 3 G [Unasyn] 3 gm 0.9% Sodium Chloride 100 ml [Nss] 100 ml IV NOW
Abnormal Lab Results
12/19/23
09:16
WBC 11.2 H 10^3/uL
(4.8-10.8)
Hgb 10.8 L g/dL
(12.0-16.0)
Hct 33.6 L %
(37.0-47.0)
MCV 72.7 L fL
(81.0-99.0)
MCH 23.4 L pg
(27.0-31.0)
MCHC 32.1 L g/dL
(33.0-37.0)
RDW 15.9 H %
(11.5-14.5)
MPV 10.7 H fL
(7.4-10.4)
Absolute Neuts (auto) 8.4 H 10^3/uL
(1.4-6.5)
Absolute Monos (auto) 1.0 H 10^3/uL
(0.1-0.6)
Lymphocytes % 13.0 L %
(20.5-51.1)
Glucose 174 H mg/dl
(70-99)
Calcium 10.4 H mg/dl
(8.4-10.2)
AST 13 L U/L
(14-36)
12/19/23 09:16
12/19/23 09:16
Vital Signs
Initial and Last Documented VS:
Initial Vital Signs
Temp Pulse Resp BP Pulse Ox
99.7 F 84 16 158/92 98
12/19/23 09:03 12/19/23 09:03 12/19/23 09:03 12/19/23 09:03 12/19/23 09:03
Last Documented Vital Signs
Temp Pulse Resp BP Pulse Ox
99.7 F 85 20 139/81 98
12/19/23 09:03 12/19/23 14:32 12/19/23 14:32 12/19/23 14:32 12/19/23 14:32
MDM/Problems Addressed
Differential Diagnosis Includes:
cellulitis, abscess, mrsa
MDM/Problems Addressed:
53 y/o F
severe cognitive disability after stroke
DM
small pimple right cheek a few days ago
noticed it and started augmentin, he is a physician
sh ehad 2 doses yesterday and woke up with facial swelling and more redness
the swelling seemed to cause difficulty fully opening eye but now is better
no fever
bg 170s
well appearing
mod R upper facial swelling/induration and mild erythema with a small pustule laterally
does not include orbital region
full EOMs
wbc 11
ct shows cellulitis, no definitive abscess to drain
discussed with family; now here
he says he feels comfortable sending her home, did not wish her to be admitted because it is very hard on her and fmaily when she is in the hospital due to her confusion, though we discussed that it was a reasonable choice since her swellin gwas
worse
but instead will add bactrim to cover MRSA and continue augmentin
this was d/w ed attending dr. hussein as well
return precuations
*Critical Care Note
Total Time (30-74mins, 75-104mins- exclusive of procedures): Not Applicable
ED Attending Note
-
Portions of this chart may have been created with voice recognition software.� Occasional wrong word or��sound alike� substitutions may have occurred due to the inherent limitations of voice recognition software.
Discharge Plan
Departure
Patient Disposition: Home (Routine Discharge)
Date of Disposition: 12/19/23
Time of Disposition: 13:38
Patient with high blood pressure during this ER visit?: No
Condition: Fair
Covid-19: Not Applicable
Discharge Problem:
Cellulitis of face
Discharge Problem:
(Ruled Out): Type II diabetes mellitus
Instructions: Cellulitis (Skin Infection), Adult (DC)
Prescriptions:
New
sulfamethoxazole-trimethoprim [Bactrim DS] 800-160 mg tablet
1 tab PO Q12H 7 Days Qty: 14 0RF
No Action
lisinopril 10 mg tablet
10 mg PO Daily
duloxetine 30 mg capsule,delayed release(DR/EC)
30 mg PO QPM
Dupixent Pen 300 mg/2 mL pen injector
300 mg SC Q2W
glipizide 5 mg tablet
5 mg PO DAILY Qty: 30 0RF
metoprolol succinate [Toprol XL] 25 mg Tablet Extended Release 24 Hr
25 mg PO DAILY
memantine 10 mg Tablet
10 mg PO BID
Eliquis 5 mg Tablet
5 mg PO BID
aspirin 81 mg Tablet,Delayed Release (Dr/Ec)
81 mg PO DAILY Qty: 30 0RF
amoxicillin-pot clavulanate 875-125 mg Tablet
1 tab PO Q12 6 Days Qty: 12 0RF
nitrofurantoin macrocrystal 50 mg Capsule
50 mg PO HS
pantoprazole [Protonix] 20 MG tablet,delayed release (DR/EC)
20 mg PO DAILY
atorvastatin 40 MG tablet
40 mg PO QPM
metformin 1,000 MG tablet
1,000 mg PO BID
Referrals:
Dwight Tovar, DO [Family Provider] - Tomorrow
Activity Restrictions/Additional Instructions:
Continue the Augmentin twice a day and add Bactrim twice a day as well. Note that the Bactrim and lisinopril can cause high potassium. Please avoid potassium rich foods while on this medication. Her potassium was normal today.
Watch for worsening swelling, redness, fever etc. and return to the ER immediately for admission if any of these happen. You can also have her sleep a little bit more upright to avoid swelling causing her eyelid to close. If her swelling does go
into her eye or around her eye restricting her eye movement she needs to be hospitalized immediately.
Return for any concerns
Warm compresses off-and-on
Interventions
Interventions:
*Risk Screen - Suicide Last Done: 12/19/23 10:39
*Neglect/Abuse Screening Last Done: 12/19/23 10:39
ED- Fall Risk Assessment Last Done: 12/19/23 10:03
*ED COVID-19 Vaccine History Last Done: 12/19/23 10:03
*Nursing Disposition Last Done: 12/19/23 15:14
ED- Neurological Assessment Last Done: 12/19/23 10:06
ED-Skin Assessment Last Done: 12/19/23 10:06
Discharge Date and Time
Discharge Date/Time: 12/19/23 15:14
Print Language: FINNISH
[2023-12-19 10:58] LABS: Lactic Acid 1.8 mmol/L (0.7-2.0)
[2023-12-19] MEDS: BACTRIM DS 800 MG/160 MG 2 TABLET PO (13:18)
[2023-12-19] MEDS: UNASYN IV (13:55)
[2023-12-19 14:32] VITALS: BP 139/81
== END 2023-12-19 15:14 | disposition home or self-care (01) ==
LOC: EMR 09:02
PROVIDERS: Emergency Medicine; Physician Assistant; EMERGENCY PHYSICIAN Student in an Organized Health Care Education/Training Program; FAMILY PHYSICIAN Family Medicine
DX: L03.211 Cellulitis of face (principal); J45.909 Unspecified asthma, uncomplicated; I69.319 Unspecified symptoms and signs involving cognitive functions following cerebral infarction; E11.9 Type 2 diabetes mellitus without complications; I10 Essential (primary) hypertension; K21.9 Gastro-esophageal reflux disease without esophagitis; Z90.49 Acquired absence of other specified parts of digestive tract
CPT/HCPCS: 96365; 99284; 70487; 80053; 83605; 85025; 87040; Q9967

== ENCOUNTER 2023-12-20 15:02 | Emergency (ER) | payer OTHER, SELFPAY ==
[2023-12-20 15:04] VITALS: BP 158/105
[2023-12-20 16:09] VITALS: BP 119/83
[2023-12-20 16:10] VITALS: BMI 36.4
--- NOTE | 2023-12-20 17:39 | ED.GENMED ---
History of Present Illness
General
Chief Complaint: Swelling
Time Seen by Provider: 12/20/23 16:17
History of Present Illness
History of Present Illness:
53-year-old female presents for evaluation of worsening swelling to the right face. She was seen here yesterday and had a workup revealing right facial cellulitis but no abscess on CT scan. He was discharged home on Augmentin plus doxycycline but
reports worsening pain and swelling. No fever today. History provided by the daughter as the patient has aphasia due to prior stroke
Past History
Past History
ED Past Medical History: Asthma, CVA, GERD, HTN, NIDDM and Other (Peptic ulcer disease, bowel obstruction, hyperparathyroidism, non healing wound LLE)
ED Past Surgical History: Appendectomy, Cholecystectomy, and Other (Lysis of adhesions, 2001 hernia repair with mesh, 2005 mesh removed,)
Patient has exhibited threatening behavior?: No
PSI?: No
Social History
Tobacco: Non-smoker
Alcohol: None
Drug: None
Personal:
Living: with family
Employment: Not employed
Family History
Family History: Other (Noncontributory)
Review of Systems
Review of Systems
Allergies reviewed?: Yes
All Other Systems: ROS reviewed and negative except as documented in HPI and ROS
Phy Exam
Physical Exam
Physical Exam:
GEN: Well appearing, NAD, WDWN
HEENT: Oral mucosa moist, no scleral icterus. Large 3 cm firm abscess/cellulitis to the right maxillary face, no evidence of extraocular motion entrapment
Cardiac: Regular rate
Lung: No respiratory distress, no tachypnea
MSK: No gross deformity or injuries
Skin: Good color, no pallor or jaundice, no rashes
Neuro: AO x3, moves all extremities freely
Psych: Calm, cooperative
Scores
Heart Failure Risk
Heart Failure Risk Score: Not Applicable
Sepsis
Sepsis Screening
Sepsis Assessment: Sepsis Ruled Out
Sepsis Screen
Sepsis Screen: Sepsis Ruled Out
Date: 12/20/23
Time: 18:29
Course
Vital Signs
Initial and Last Documented VS:
Initial Vital Signs
Temp Pulse Resp BP Pulse Ox
99.4 F 94 16 158/105 98
12/20/23 15:04 12/20/23 15:04 12/20/23 15:04 12/20/23 15:04 12/20/23 15:04
Last Documented Vital Signs
Temp Pulse Resp BP Pulse Ox
99.4 F 93 21 119/83 95
12/20/23 15:04 12/20/23 18:00 12/20/23 18:00 12/20/23 16:09 12/20/23 16:45
Procedures
Incision/Drainage/Joint Aspiration
Right Face:
Anethesia: 1% Lidocaine
Preparation: cleaned with alcohol wipe
Type of procedure: incise
Nature of site: abscess
Description of abscess: greater than 3cm
Loculations broken up: Yes
How much fluid was obtained?: large amount
Fluid description: purulent
Treatment: left open for drainage
MDM/Problems Addressed
MDM/Problems Addressed:
Source control achieved w/ I&D, no need to change abx, will d/c home to continue current abx
*Critical Care Note
Total Time (30-74mins, 75-104mins- exclusive of procedures): Not Applicable
ED Attending Note
-
Portions of this chart may have been created with voice recognition software.� Occasional wrong word or��sound alike� substitutions may have occurred due to the inherent limitations of voice recognition software.
Discharge Plan
Departure
Patient Disposition: Home (Routine Discharge)
Date of Disposition: 12/20/23
Time of Disposition: 17:40
Patient with high blood pressure during this ER visit?: No
Discharge Problem:
Cellulitis and abscess of face
Instructions: Cellulitis (Skin Infection), Adult ED
Prescriptions:
No Action
lisinopril 10 mg tablet
10 mg PO Daily
duloxetine 30 mg capsule,delayed release(DR/EC)
30 mg PO QPM
Dupixent Pen 300 mg/2 mL pen injector
300 mg SC Q2W
glipizide 5 mg tablet
5 mg PO DAILY Qty: 30 0RF
metoprolol succinate [Toprol XL] 25 mg Tablet Extended Release 24 Hr
25 mg PO DAILY
memantine 10 mg Tablet
10 mg PO BID
Eliquis 5 mg Tablet
5 mg PO BID
aspirin 81 mg Tablet,Delayed Release (Dr/Ec)
81 mg PO DAILY Qty: 30 0RF
amoxicillin-pot clavulanate 875-125 mg Tablet
1 tab PO Q12 6 Days Qty: 12 0RF
nitrofurantoin macrocrystal 50 mg Capsule
50 mg PO HS
sulfamethoxazole-trimethoprim [Bactrim DS] 800-160 mg tablet
1 tab PO Q12H 7 Days Qty: 14 0RF
pantoprazole [Protonix] 20 MG tablet,delayed release (DR/EC)
20 mg PO DAILY
atorvastatin 40 MG tablet
40 mg PO QPM
metformin 1,000 MG tablet
1,000 mg PO BID
Referrals:
Dwight Tovar DO [Family Provider] -
Activity Restrictions/Additional Instructions:
Continue current antibiotics
If symptoms worsen, return to the ER
Interventions
Interventions:
*Risk Screen - Suicide Last Done: 12/20/23 15:04
*General Assessment Last Done: 12/20/23 16:10
*Neglect/Abuse Screening Last Done: 12/20/23 15:04
*ED COVID-19 Vaccine History Last Done: 12/20/23 16:10
ED- Cardiac Assessment Last Done: 12/20/23 16:10
ED- Pulmonary Assessment Last Done: 12/20/23 16:10
ED-Skin Assessment Last Done: 12/20/23 16:10
Discharge Date and Time
Print Language: NIGERIEN
== END 2023-12-20 18:15 | disposition home or self-care (01) ==
LOC: EMR 15:02
PROVIDERS: EMERGENCY PHYSICIAN Emergency Medicine; FAMILY PHYSICIAN Family Medicine
DX: L02.01 Cutaneous abscess of face (principal); L03.211 Cellulitis of face; J45.909 Unspecified asthma, uncomplicated; K21.9 Gastro-esophageal reflux disease without esophagitis; E11.9 Type 2 diabetes mellitus without complications; K27.9 Peptic ulcer, site unspecified, unspecified as acute or chronic, without hemorrhage or perforation; I10 Essential (primary) hypertension; I69.320 Aphasia following cerebral infarction; Z90.49 Acquired absence of other specified parts of digestive tract
CPT/HCPCS: 99282

== ENCOUNTER 2024-01-23 23:28 | Inpatient (IN) | payer OTHER, SELFPAY ==
[2024-01-23 18:58] VITALS: BP 145/79
[2024-01-23 19:21] LABS: % Basophils 0.4 % (0-2); % Eosinophils 1.2 % (0-6); % Immature Granulocytes 0.3 % (0-0.5); % Lymphocytes 8.4 % (20.5-51.1); % Monocytes 7.8 % (1.7-9.3); % Neutrophils 81.9 % (42.2-75.2); Absolute Eosinophils 0.1 10^3/uL (0-0.7); Absolute Monocytes 0.9 10^3/uL (0.1-0.6); Absolute Neutrophils 9.2 10^3/uL (1.4-6.5); Hematocrit 32.9 % (37.0-47.0); Hemoglobin 10.3 g/dL (12.0-16.0); Mean Corp Hgb Conc. 31.3 g/dL (33.0-37.0); Mean Corpuscular Hgb 23.4 pg (27.0-31.0); Mean Corpuscular Volume 74.6 fL (81.0-99.0); Mean Platelet Volume 10.5 fL (7.4-10.4); Nucleated Red Blood Cells % 0 %; Platelet Count 265 10^3/uL (130-400); Red Blood Cell Count 4.41 10^6/uL (4.20-5.40); Red Cell Dist. Width 16.8 % (11.5-14.5); White Blood Cell Count 11.3 10^3/uL (4.8-10.8)
[2024-01-23 19:33] LABS: Lactic Acid 1.6 mmol/L (0.7-2.0)
[2024-01-23 19:41] LABS: ALT (SGPT) 15 U/L (0-35); AST (SGOT) 14 U/L (14-36); Albumin 4.3 g/dl (3.5-5.0); Alkaline Phosphatase 125 U/L (38-126); Blood Urea Nitrogen 19 mg/dl (7-17); Calcium 10.3 mg/dl (8.4-10.2); Carbon Dioxide 25 mmol/L (22-30); Chloride 102 mmol/L (98-107); Glucose 292 mg/dl (70-99); Potassium 4.4 mmol/L (3.5-5.1); Sodium 137 mmol/L (135-145); Total Bilirubin 0.7 mg/dl (0.2-1.3); eGFR > 60.00
--- NOTE | 2024-01-23 22:00 | ED.GENMED ---
History of Present Illness
<MICA Moss - Last Filed: 01/23/24 22:17>
General
Chief Complaint: Vascular Symptoms
Source: family (Son )
Exam Limitations: other (Difficulty with communication since CVA)
Time Seen by Provider: 01/23/24 21:41
History of Present Illness
History of Present Illness:
This is a 53 year old female that is brought in by her family from the Pediatrist office. Son states that she had her second toe on the right foot amputated in May 2023. States that she has been seeing the [facility] and that 2 weeks ago the great
toe started to not look good. States that she was given an antibiotic ointment that cause the skin to sluff. States that they have been trying to heal this. Know today she went to the [facility] and she is concerned that this is a vascular issue and
that there is infection in the toe. States that she was sent in for admission. States that she will not really walk on the foot or put her shoe on. Denies any fever, chills, chest pain, SOB, abd pain, nausea, vomiting, diarrhea, headache, dizziness,
urinary burning.
Past History
<MICA Moss - Last Filed: 01/23/24 22:17>
Past History
ED Past Medical History: Asthma, CVA, GERD, HTN, NIDDM, Psychiatric (Depression) and Other (Peptic ulcer disease, bowel obstruction, hyperparathyroidism, non healing wound LLE, PNA, Esophageal strictures. Liver lesion, UTI, HELP, Anemia, )
ED Past Surgical History: Appendectomy, Cholecystectomy, (X 3), Gynecological (Endometrial ablation, ), Orthopedic (Right knee replacement, Right shoulder replacement) and Other (Lysis of adhesions, 2001 hernia repair with mesh, 2005 mesh
removed,, 2 vascular leg surgery)
Patient has exhibited threatening behavior?: No
PSI?: No
Social History
Tobacco: Non-smoker
Alcohol: None
Drug: None
Personal:
Living: with family
Employment: Not employed
Family History
Family History: Other (Noncontributory)
Review of Systems
<MICA Moss - Last Filed: 01/23/24 22:17>
Review of Systems
All Other Systems: ROS reviewed and negative except as documented in HPI and ROS
Constitutional: Reports no symptoms; Denies fever or chills
EENT: Reports no symptoms
Respiratory: Reports no symptoms; Denies cough or trouble breathing
Cardiac: Reports no symptoms; Denies chest pain
ABD/GI: Reports no symptoms; Denies abdominal pain, nausea, vomiting or diarrhea
: Reports no symptoms; Denies dysuria, frequency or urgency
Musculoskeletal: Reports no symptoms
Skin: Reports other (Infection right great toe)
Neurological: Reports no symptoms; Denies dizzy or headache
Psychiatric: Reports no symptoms
Phy Exam
<MICA Moss - Last Filed: 01/23/24 22:17>
General Physical Exam
General Presentation: no apparent distress
General age: appears stated age
General Skin: warm and dry
General Habitus: normal
General Mental: alert (Nonverbal but shakes her head yes or no)
General Hydration: appears well hydrated
ENT Exam
ENT Exam: TM's normal, pharynx normal and neck supple
Eye Exam
Eye Exam: EOMI
Cardiovascular Exam
Cardiovascular Exam: regular rate/rhythm
Pulmonary Exam
Pulmonary Exam: lungs clear, no respiratory distress, no rales, chest non tender, no crackles, no rhonchi, no wheezing and no cough
Gastrointestinal Exam
Gastrointestinal Exam: normal bowel sounds, non tender, soft, no organomegaly, no pulsatile mass and non distended
Musculoskeletal Exam
Musculoskeletal Exam: full ROM and edema (Slight swelling of the right foot)
Skin Exam
Skin Exam: normal color, warm/dry, no petechia and redness (of the right great toe with bluish discoloration of the toenail. Cellulitis with red streak going into the foot)
Psychiatric Exam
Psychiatric Exam: normal mood/affect
Course
<MICA Moss - Last Filed: 01/23/24 22:17>
Orders/Labs/Results
Orders:
Orders
01/23/24 19:08
Complete Blood Count/With Diff Urgent
Comprehensive Metabolic Panel Urgent
Lactic Acid Urgent
01/23/24 22:02
Aztreonam [Azactam] 2,000 mg IV NOW STA
MetroNIDAZOLE 500 MG/100 ML [Flagyl 500 mg] 100 ml IV NOW
01/23/24 22:10
Sterile Water [Sterile Water For Injection] 10 ml .ROUTE .K-MED ONE
Abnormal Lab Results
01/23/24
19:08
WBC 11.3 H 10^3/uL
(4.8-10.8)
Hgb 10.3 L g/dL
(12.0-16.0)
Hct 32.9 L %
(37.0-47.0)
MCV 74.6 L fL
(81.0-99.0)
MCH 23.4 L pg
(27.0-31.0)
MCHC 31.3 L g/dL
(33.0-37.0)
RDW 16.8 H %
(11.5-14.5)
MPV 10.5 H fL
(7.4-10.4)
Absolute Neuts (auto) 9.2 H 10^3/uL
(1.4-6.5)
Absolute Lymphs (auto) 1.0 L 10^3/uL
(1.2-3.4)
Absolute Monos (auto) 0.9 H 10^3/uL
(0.1-0.6)
Neutrophils % 81.9 H %
(42.2-75.2)
Lymphocytes % 8.4 L %
(20.5-51.1)
BUN 19 H mg/dl
(7-17)
Glucose 292 H mg/dl
(70-99)
Calcium 10.3 H mg/dl
(8.4-10.2)
01/23/24 19:08
01/23/24 19:08
Leukocytosis. H/H slightly low. Dehydration. Hyperglycemia. Lactic acid normal at 1.6
Vital Signs
Initial and Last Documented VS:
Initial Vital Signs
Temp Pulse Resp BP Pulse Ox
99.9 F 96 18 145/79 96
01/23/24 18:58 01/23/24 18:58 01/23/24 18:58 01/23/24 18:58 01/23/24 18:58
Last Documented Vital Signs
Temp Pulse Resp BP Pulse Ox
99.9 F 96 18 145/79 96
01/23/24 18:58 01/23/24 18:58 01/23/24 18:58 01/23/24 18:58 01/23/24 18:58
[email or web address];Enmanuel Hernández, DO - Last Filed: 01/23/24 22:35>
Orders/Labs/Results
Orders:
Orders
01/23/24 19:08
Complete Blood Count/With Diff Urgent
Comprehensive Metabolic Panel Urgent
Lactic Acid Urgent
01/23/24 22:02
Aztreonam [Azactam] 2,000 mg IV NOW STA
MetroNIDAZOLE 500 MG/100 ML [Flagyl 500 mg] 100 ml IV NOW
01/23/24 22:10
Sterile Water [Sterile Water For Injection] 10 ml .ROUTE .STK-MED ONE
Abnormal Lab Results
01/23/24
19:08
WBC 11.3 H 10^3/uL
(4.8-10.8)
Hgb 10.3 L g/dL
(12.0-16.0)
Hct 32.9 L %
(37.0-47.0)
MCV 74.6 L fL
(81.0-99.0)
MCH 23.4 L pg
(27.0-31.0)
MCHC 31.3 L g/dL
(33.0-37.0)
RDW 16.8 H %
(11.5-14.5)
MPV 10.5 H fL
(7.4-10.4)
Absolute Neuts (auto) 9.2 H 10^3/uL
(1.4-6.5)
Absolute Lymphs (auto) 1.0 L 10^3/uL
(1.2-3.4)
Absolute Monos (auto) 0.9 H 10^3/uL
(0.1-0.6)
Neutrophils % 81.9 H %
(42.2-75.2)
Lymphocytes % 8.4 L %
(20.5-51.1)
BUN 19 H mg/dl
(7-17)
Glucose 292 H mg/dl
(70-99)
Calcium 10.3 H mg/dl
(8.4-10.2)
01/23/24 19:08
01/23/24 19:08
Vital Signs
Initial and Last Documented VS:
Initial Vital Signs
Temp Pulse Resp BP Pulse Ox
99.9 F 96 18 145/79 96
01/23/24 18:58 01/23/24 18:58 01/23/24 18:58 01/23/24 18:58 01/23/24 18:58
Last Documented Vital Signs
Temp Pulse Resp BP Pulse Ox
99.9 F 96 18 145/79 96
01/23/24 18:58 01/23/24 18:58 01/23/24 18:58 01/23/24 18:58 01/23/24 18:58
<MICA Moss - Last Filed: 01/23/24 22:17>
MDM/Problems Addressed
Differential Diagnosis Includes:
Cellulitis right great toe,
MDM/Problems Addressed:
This is a 53 year old female that comes in with c/o redness of the right great toe and into the foot. Patient was seen by the [facility] and sent in for admission.
Will check labs, Start antibiotics and admit. Hospitalist notified.
Chronic conditions affecting care: DM
Acute Exacerbation and/or Progression of Chronic Illness: DM
<MICA Moss - Last Filed: 01/23/24 22:17>
*Pulse Oximetry
Patient hypoxic: no
*EKG
Interpreted by ED Provider?: NA
Rate: EKG- N/A
*Bass Guitar Teacher Interpretation
Rate: normal
Heart Rate: 83
Rhythm: sinus
*Critical Care Note
Total Time (30-74mins, 75-104mins- exclusive of procedures): Not Applicable
ED Attending Note
<MICA Moss - Last Filed: 01/23/24 22:17>
-
Portions of this chart may have been created with voice recognition software.� Occasional wrong word or��sound alike� substitutions may have occurred due to the inherent limitations of voice recognition software.
<Enmanuel Hernández DO - Last Filed: 01/23/24 22:35>
ED Attending Note
Patient seen and examined by attending physician: Yes
ED Attending Note:
I have reviewed and agree with history and treatment plan by Izabela Navarro. My exam revealed 53-year-old female with right first toe cellulitis, status post right second toe amputation. Palpable pulses and pulses detectable by Doppler a posterior
tibialis and dorsalis pedis. Admit for further treatment and possible amputation of first toe.
Discharge Plan
Departure
Patient Disposition: Admit
Date of Disposition: 01/23/24
Time of Disposition: 22:17
Admit to: Med/Surg
Presentation/result/management discussed w/ accepting MD/DO: Hospitalist
Patient with high blood pressure during this ER visit?: Yes
Condition: Good
Covid-19: Not Applicable
Discharge Problem:
Cellulitis of great toe of right foot
Prescriptions:
No Action
lisinopril 10 mg tablet
10 mg PO DAILY
duloxetine 30 mg capsule,delayed release(DR/EC)
30 mg PO QPM
Dupixent Pen 300 mg/2 mL pen injector
300 mg SC Q2W
glipizide 5 mg tablet
5 mg PO DAILY Qty: 30 0RF
metoprolol succinate [Toprol XL] 25 mg Tablet Extended Release 24 Hr
25 mg PO QPM
memantine 10 mg Tablet
10 mg PO BID
Eliquis 5 mg Tablet
5 mg PO BID
aspirin 81 mg Tablet,Delayed Release (Dr/Ec)
81 mg PO DAILY Qty: 30 0RF
nitrofurantoin macrocrystal 50 mg Capsule
50 mg PO QPM
pantoprazole [Protonix] 20 MG tablet,delayed release (DR/EC)
20 mg PO DAILY
atorvastatin 40 MG tablet
40 mg PO QPM
metformin 1,000 MG tablet
1,000 mg PO BID
Interventions
Interventions:
*Risk Screen - Suicide Last Done: 01/23/24 18:58
*General Assessment Last Done: 01/23/24 18:58
*Neglect/Abuse Screening Last Done: 01/23/24 18:58
*ED COVID-19 Vaccine History Last Done: 01/23/24 18:58
ED- Cardiac Assessment Last Done: 01/23/24 21:55
ED- Pulmonary Assessment Last Done: 01/23/24 21:55
ED-Peripheral Vascular Assessment Last Done: 01/23/24 21:55
ED-Skin Assessment Last Done: 01/23/24 22:07
Discharge Date and Time
Print Language: UKRAINIAN
[2024-01-23] MEDS: AZACTAM 2000 MG IV (22:23)
[2024-01-23] MEDS: FLAGYL 500 MG 100 IV (22:23)
[2024-01-23 22:37] VITALS: BP 123/48
--- NOTE | 2024-01-23 22:48 | HPS.HSE ---
Addendum entered and electronically signed by Allen Frank DO 01/23/24 23:49:
Patient seen and examined independently. Agree with findings and plan as set forth by Germaine Hansen PA-C.
Patient is a 53y F with PMH significant for A-Fib with prior CVA and resultant cognitive impairment / expressive aphasia who presents to [facility] for evaluation of R great toe pain, swelling and redness. Symptoms have been progressive x a few weeks.
Followed by Podiatry as an outpatient who advised patient today to present to the ED. Increased redness around the toe and extending into the foot. New pain in the foot / difficulty with ambulation.
No fevers / chills, N/V/D, etc.
Ass:
R Great Toe Infection
ASCVD (CVA / PAD)
Paroxysmal Atrial Fibrillation
Cognitive Impairment / Aphasia as Late Effect of CVA
Benign Hypertension
DM-II with Peripheral Neuropathy
GERD / PUD
Asthma without Acute Exacerbation
History of MRSA
Plan:
Admit for further evaluation and treatment.
IV abx pending culture results.
Podiatry evaluation.
Update Vascular studies.
Supportive care.
Hold Eliquis. IV heparin bridge given high-risk / prior CVA.
Hold oral DM medications. SSI coverage.
Family notes that patient can be quite impulsive / difficult to reorient.
Will require close observation / constant supervision.
Original Note:
Family Physician
-
Family Physician: Dwight Tovar
Chief Complaint
-
Redness of right foot
History of Present Illness
Patient is a 53 y/o female past medical history of atrial fibrillation, stroke with residual cognitive impairment, peripheral arterial disease with right lower extremity stent, and diabetes mellitus who presents with redness of the right foot.
Additional history is obtained from patient's family at the bedside. A few weeks prior to patient developed mild redness of the right great toe and foot. She was seen by podiatry who treated her for an ingrown toenail. Afterwards the
skin on the right great toe peeled off and the toe appeared very raw. Yesterday patient developed worsening redness of the right foot. She was seen by her parts cleaner today who referred her to the emergency department for evaluation.
Medical History
Past Medical History
Past Medical History: Reports Other
Additional Past Medical History:
Left Thalamic Stroke with Residual Expressive Aphasia and Cognitive Impairment
PAD s/p RLE Stent
Paroxysmal Atrial Fibrillation
Essential Hypertension
Diabetes Mellitus, Type II
Diabetic Neuropathy
Recurrent SBO
Asthma
Peptic Ulcer Disease
Past Surgical History: Reports Other
Additional Past Surgical History:
Herniorrhaphy
Appendectomy
Cholecystectomy
Ex Lap / FIORDALIZA
Right 2nd Toe Amputation
Social History
Tobacco: Non-smoker
Alcohol: None
Personal:
Living: With Family
Family History
Family History: Not pertinent
Allergies / Home Medications
Allergies reflects when Allergies were last updated in [facility].
Home Medications with original date entered in [facility]
Allergy/Medication List:
Allergies
Allergy/AdvReac Type Severity Reaction Status Date / Time
cefuroxime Allergy Hives. Verified 01/23/24 19:01
03/2023
tolerated
course
unasyn and
augmentin
cefuroxime axetil Allergy Hives, Verified 01/23/24 19:01
[From Ceftin] 03/2023
tolerated
course
unasyn and
augmentin
cephalexin monohydrate Allergy Hives, Verified 01/23/24 19:01
[From Keflex] 03/2023
tolerated
course
unasyn and
augmentin
erythromycin base Allergy Hives Verified 01/23/24 19:01
morphine Allergy Itching Verified 01/23/24 19:01
oxycodone [From Percocet] Allergy Nausea / Verified 01/23/24 19:01
Vomiting
vancomycin Allergy Itching Verified 01/23/24 19:01
Home Medications
atorvastatin 40 mg tablet 40 mg PO QPM High cholesterol 05/21/21
metformin 1,000 mg tablet 1,000 mg PO BID Diabetes 05/21/21
pantoprazole 20 mg tablet,delayed release (Protonix) 20 mg PO DAILY Gastrointestinal issue 05/21/21
duloxetine 30 mg capsule,delayed release 30 mg PO QPM Mental Health/Anxiety 10/25/21
dupilumab 300 mg/2 mL subcutaneous pen injector (Dupixent) 300 mg SC Q2W Lung/breathing issues 10/25/21
lisinopril 10 mg tablet 10 mg PO DAILY Blood pressure 10/25/21
glipizide 5 mg tablet 5 mg PO DAILY #30 tabs 03/16/22
apixaban 5 mg tablet (Eliquis) 5 mg PO BID Blood Clot Prevention/Tx 03/23/23
memantine 10 mg tablet 10 mg PO BID memory impairment 03/23/23
metoprolol succinate 25 mg tablet,extended release 24 hr (Toprol XL) 25 mg PO QPM Blood Pressure 03/23/23
aspirin 81 mg tablet,delayed release 81 mg PO DAILY #30 tabs 03/29/23
nitrofurantoin macrocrystal 50 mg capsule 50 mg PO QPM 12/19/23
Review of Systems
-
Unable to obtain full review of systems at this time due to: Other (Cognitive impairment; limited verbal skills following stroke)
Physical Exam
Vital Signs
Vital Signs
Temp Pulse Resp BP Pulse Ox
99.9 F 87 23 123/48 97
01/23/24 18:58 01/23/24 22:37 01/23/24 22:37 01/23/24 22:37 01/23/24 22:37
Physical Exam
General: Well Developed and Well Nourished
HEENT: Anicteric and Moist mucous membranes
Respiratory: Clear and Non Labored Respirations
Cardiac: S1/S2 and Regular Rhythm
GI: Soft and Non Tender
Musculoskeletal: No Clubbing and No Cyanosis
Skin: Warm, Dry and Other (Moderate erythema right great toe extending up the forefoot with increased warmth to touch)
Neuro: Awake, Alert and Other (Moves all four extremities appropriate)
Psych: Calm
Laboratory Results
-
01/23/24 19:08
01/23/24 19:08
Laboratory Results
Lactic Acid 1.6 mmol/L (0.7-2.0) 01/23/24 19:08
Total Bilirubin 0.7 mg/dl (0.2-1.3) 01/23/24 19:08
AST 14 U/L (14-36) 01/23/24 19:08
ALT 15 U/L (0-35) 01/23/24 19:08
Alkaline Phosphatase 125 U/L (38-126) 01/23/24 19:08
Data Reviewed
-
Lab Data: Labs Reviewed by me
Old Records: Reviewed
Impression/Plan
-
Right Great Toe / Foot Cellulitis
-Consult Podiatry
-Consult Infectious Disease
-Reviewed prior admissions/culture data - Continue Unasyn and Doxycycline
-Check Foot X-ray - Consider MRI
-Check Vascular US
Paroxysmal Atrial Fibrillation
-Transition Eliquis to heparin drip should patient require surgical intervention
-Continue metoprolol for rate control
Peripheral Arterial Disease s/p RLE Stent
-Continue aspirin
Left Thalamic Stroke with Residual Expressive Aphasia and Cognitive Impairment
-Continue Namenda
-Monitor for mood/behavior changes
-Per Family patient does not respond well to benzodiazepines and family asks to avoid benzos during hospitalization
Diabetes Mellitus, Type II
-Hold oral meds
-Monitor sugars and continue coverage insulin
Diabetes Neuropathy
-Continue duloxetine
Essential Hypertension
-Continue lisinopril and metoprolol with hold parameters
Hyperlipidemia
-Continue atorvastatin
Asthma, no acute exacerbation
-Patient maintained on Dupixent as outpatient
Peptic Ulcer Disease
-Continue Protonix
DVT proph: Heparin drip
Code Status: Full Code
[2024-01-23 23:00] VITALS: BP 127/62
[2024-01-24] VITALS (7 sets, daily range): BP systolic 96–132; BP diastolic 51–93; PULSE 80; O2SAT 97; BMI 37.1
[2024-01-24] MEDS: UNASYN IV ×4 (02:15→20:56)
[2024-01-24] MEDS: VIBRAMYCIN 100 MG PO ×3 (02:15→20:56)
[2024-01-24 02:28] LABS: APTT 45.2 Sec (23.4-35.0)
[2024-01-24] MEDS: HEPARIN 25000 UNITS/250 ML IV (03:36)
[2024-01-24] MEDS: TYLENOL 650 MG PO (03:54)
[2024-01-24] MEDS: DILAUDID 0.25 MG IV (05:56)
[2024-01-24 07:48] LABS: Glucose - Point of Care 126 mg/dl (70-99)
[2024-01-24] MEDS: ZESTRIL 10 MG PO (07:55)
[2024-01-24] MEDS: PROTONIX 20 MG PO (07:55)
[2024-01-24] MEDS: ASPIR LOW (ENTERIC COATED) 81 MG PO (07:55)
[2024-01-24] MEDS: NAMENDA 10 MG PO ×2 (07:56→20:56)
--- NOTE | 2024-01-24 10:23 | CON.ID ---
Consultation
-
Date/Time Consultation Requested: 01/24/2024 0112
Date/Time Consultation Performed: 01/24/2024 1016
Requesting Provider: Germaine Hansen
Performing Provider: Dr. Serrano
Reason for Consultation: Right toe/foot cellulitis
Chief Complaint / Past History
History of Present Illness
Janki Solorio is a 53-year-old female being evaluated at the request of Germaine Hansen regarding lower extremity cellulitis. History is obtained from chart review, along with patient interview, and review of old records contained in the hospital
EMR system.
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 The patient has a history of right second toe amputation in May 2023. She reports close follow-up with Podiatry over the intervening time.
Approximately 1 month ago she was seen in the podiatry office for possible ingrown toenail, and the area was trimmed. Additionally, she was given an antibiotic to apply to the area. Over the past 2 weeks or so there has been some skin sloughing on
the hallux, and over the past 48 hours prior to admission she developed increasing pain leading to decreased ambulation. She reports that the pain is 'inside the toe'. Ultimately, she was sent to the emergency room for further evaluation.
Past History
Additional Past Medical History:
CVA
DM with neuropathy
Asthma
GERD
HTN
Paroxysmal Atrial Fibrillation
Additional Past Surgical History:
Appendectomy
Cholecystectomy
FIORDALIZA
Hernia repair
Right foot surgery
Allergy History:
cefuroxime Allergy (Verified 01/23/24 19:01)
Hives. 03/2023 tolerated course unasyn and augmentin
cephalexin monohydrate [From Keflex] Allergy (Verified 01/23/24 19:01)
Hives, 03/2023 tolerated course unasyn and augmentin
erythromycin base Allergy (Verified 01/23/24 19:01)
Hives
morphine Allergy (Verified 01/23/24 19:01)
Itching
oxycodone [From Percocet] Allergy (Verified 01/23/24 19:01)
Nausea / Vomiting
vancomycin Allergy (Verified 01/23/24 19:01)
Itching
Medications Reviewed: Yes
Current Antibiotics:
Unasyn 3 g IV every 6 hours
Doxycycline 100 mg p.o. twice daily
Social History
Tobacco: Non-Smoker
Alcohol: None
Drug: None
Personal:
Living: With Family
Employment: Disabled
Family History
Family History: Not Pertinent
Review of Systems
Vital Signs
Temp Pulse Resp BP Pulse Ox
98.3 F 81 12 117/93 96
01/24/24 07:31 01/24/24 07:31 01/24/24 07:31 01/24/24 07:31 01/24/24 07:31
Physical Exam
Physical Exam
Constitutional: No Acute Distress, Comfortable and Non-toxic
Head: Normocephalic
Eyes: Pupils Equal, No Conjunctival Hemorrhage and Sclera Anicteric
Oral: No Thrush and No Ulcers
Cardiovascular: Regular Rate, S1/S2 and S3/S4; Negative Murmur
Pulmonary: Clear; Negative Wheezes, Rales or Rhonchi
Gastrointestinal: Soft, Non Tender and Non Distended
Skin: Other (Right hallux with dry dermal necrosis over portions. Toe is cool to touch. No active drainage.)
Neurological: Awake
Psychological: Calm
Lab / Diagnostic Study Results
Abs Immat Gran (auto) 0.0 10^3/uL (0-0.05) 01/23/24 19:08
Absolute Neuts (auto) 9.2 10^3/uL (1.4-6.5) H 01/23/24 19:08
Absolute Lymphs (auto) 1.0 10^3/uL (1.2-3.4) L 01/23/24 19:08
Absolute Monos (auto) 0.9 10^3/uL (0.1-0.6) H 01/23/24 19:08
Absolute Basos (auto) 0.0 10^3/uL (0-0.2) 01/23/24 19:08
Immature Gran % 0.3 % (0-0.5) 01/23/24 19:08
Neutrophils % 81.9 % (42.2-75.2) H 01/23/24 19:08
Lymphocytes % 8.4 % (20.5-51.1) L 01/23/24 19:08
Monocytes % 7.8 % (1.7-9.3) 01/23/24 19:08
Eosinophils % 1.2 % (0-6) 01/23/24 19:08
Basophils % 0.4 % (0-2) 01/23/24 19:08
Lactic Acid 1.6 mmol/L (0.7-2.0) 01/23/24 19:08
Microbiology Results
Imaging:
01/24/2024 right foot x-ray: Official report pending. Patient is s/p right second toe amputation. No apparent cortical irregularities of right hallux. Film personally viewed.
Assessment / Plan
Right hallux cellulitis
Suspected right hallux ischemia
CVA
DM with neuropathy
Asthma
GERD
HTN
Recommendations:
Continue with current antibiotics for the present.
Await vascular syudies.
At present, no evidence of wet gangrene. May need to allow area to demarcate if secondary to thrombotic event.
Continue with local care to the area.
Follow-up for improvement in erythema.
[2024-01-24 10:52] LABS: Glucose - Point of Care 120 mg/dl (70-99)
[2024-01-24 11:29] LABS: Hematocrit 28.9 % (37.0-47.0); Hemoglobin 8.9 g/dL (12.0-16.0); Mean Corp Hgb Conc. 30.8 g/dL (33.0-37.0); Mean Corpuscular Hgb 22.8 pg (27.0-31.0); Mean Corpuscular Volume 74.1 fL (81.0-99.0); Mean Platelet Volume 10.1 fL (7.4-10.4); Platelet Count 218 10^3/uL (130-400); Red Cell Dist. Width 17.1 % (11.5-14.5); White Blood Cell Count 6.8 10^3/uL (4.8-10.8)
[2024-01-24 11:41] LABS: APTT 56.5 Sec (23.4-35.0)
[2024-01-24 11:53] LABS: Glycohemoglobin (HgbA1c) 7.6 % (4.0-5.6)
[2024-01-24 12:05] LABS: Glucose - Point of Care 128 mg/dl (70-99)
[2024-01-24 12:18] LABS: Blood Urea Nitrogen 16 mg/dl (7-17); Carbon Dioxide 24 mmol/L (22-30); Chloride 104 mmol/L (98-107); Estimated Creatinine Clearance 81 ml/min; Glucose 125 mg/dl (70-99); Potassium 4.1 mmol/L (3.5-5.1); Sodium 136 mmol/L (135-145); eGFR > 60.00
--- NOTE | 2024-01-24 13:23 | WOUNDNOTE ---
RIGHT GREAT TOE
--- NOTE | 2024-01-24 13:25 | WOUNDNOTE ---
RIGHT GREAT TOE
--- NOTE | 2024-01-24 13:33 | CON.MD ---
Consultation - Medical
-
Redness of right foot
History of Present Illness:
Patient is a 53 y/o female past medical history of atrial fibrillation, stroke with residual cognitive impairment, peripheral arterial disease with right lower extremity stent, and diabetes mellitus who presents with redness of the right foot.
Patient and family are known to me from my outpatient office. A few weeks prior to Thanksgiving patient developed mild redness of the right great toe along the nail border. She was seen by me and accompanied by her in the office. At the
time, a small wedge of nail was removed from the medial right hallux nail border. She was using mupirocin ointment and taking Oral Augmentin and the skin around the nail on the right great toe peeled off and the toe appeared very raw. Yesterday she
returned to the office with her son due to worsening redness of the right foot extending from the great toe and I referred her to the ER for admission.
Medical History
Past Medical History
Past Medical History: Reports Other
Additional Past Medical History:
Left Thalamic Stroke with Residual Expressive Aphasia and Cognitive Impairment
PAD s/p RLE Stent
Paroxysmal Atrial Fibrillation
Essential Hypertension
Diabetes Mellitus, Type II
Diabetic Neuropathy
Recurrent SBO
Asthma
Peptic Ulcer Disease
Past Surgical History: Reports Other
Additional Past Surgical History:
Herniorrhaphy
Appendectomy
Cholecystectomy
Ex Lap / FIORDALIZA
Right 2nd Toe Amputation
Social History
Tobacco: Non-smoker
Alcohol: None
Personal:
Living: With Family
Family History
Family History: Not pertinent
Allergies / Home Medications
Allergies reflects when Allergies were last updated in [facility].
Home Medications with original date entered in [facility]
Allergy/Medication List:
Allergies
Allergy/AdvReac Type Severity Reaction Status Date / Time
cefuroxime Allergy Hives. Verified 01/23/24 19:01
03/2023
tolerated
course
unasyn and
augmentin
cefuroxime axetil Allergy Hives, Verified 01/23/24 19:01
[From Ceftin] 03/2023
tolerated
course
unasyn and
augmentin
cephalexin monohydrate Allergy Hives, Verified 01/23/24 19:01
[From Keflex] 03/2023
tolerated
course
unasyn and
augmentin
erythromycin base Allergy Hives Verified 01/23/24 19:01
morphine Allergy Itching Verified 01/23/24 19:01
oxycodone [From Percocet] Allergy Nausea / Verified 01/23/24 19:01
Vomiting
vancomycin Allergy Itching Verified 01/23/24 19:01
Home Medications
atorvastatin 40 mg tablet 40 mg PO QPM High cholesterol 05/21/21
metformin 1,000 mg tablet 1,000 mg PO BID Diabetes 05/21/21
pantoprazole 20 mg tablet,delayed release (Protonix) 20 mg PO DAILY Gastrointestinal issue 05/21/21
duloxetine 30 mg capsule,delayed release 30 mg PO QPM Mental Health/Anxiety 10/25/21
dupilumab 300 mg/2 mL subcutaneous pen injector (Dupixent) 300 mg SC Q2W Lung/breathing issues 10/25/21
lisinopril 10 mg tablet 10 mg PO DAILY Blood pressure 10/25/21
glipizide 5 mg tablet 5 mg PO DAILY #30 tabs 03/16/22
apixaban 5 mg tablet (Eliquis) 5 mg PO BID Blood Clot Prevention/Tx 03/23/23
memantine 10 mg tablet 10 mg PO BID memory impairment 03/23/23
metoprolol succinate 25 mg tablet,extended release 24 hr (Toprol XL) 25 mg PO QPM Blood Pressure 03/23/23
aspirin 81 mg tablet,delayed release 81 mg PO DAILY #30 tabs 03/29/23
nitrofurantoin macrocrystal 50 mg capsule 50 mg PO QPM 12/19/23
Physical Exam: Right foot with palpable pulses, CFT < 4 seconds, forefoot is cool to touch. There is erythema extending form the hallux toenail area to the to dorsal foot past the MPJ. the distal toe site of previous skin slough is currently dry
with some dark discoloration.
X-ray: Negative for Osteomyelitis of hallux, second toe amputation - some old erosions along metatarsal head- not clinically relevant
Vascular Studies: EVON 0.42 consistent with moderate to severe arterial insufficiency. Significantly decreased compared to prior study (0.92). Multiphasic common femoral and profunda femoris waveforms with monophasic waveforms noted throughout the
superficial femoral artery. Distal superficial femoral artery stent is patent, but with velocity elevation of 236 cm/s and velocity ratios 4.92 suggestive of greater than 75% stenosis in stent. Popliteal stent appears segmentally occluded.
Assessment:
Right foot cellulitis
Ischemic changes distal hallux
Plan:
Unasyn and Doxycycline per ID
X-rays reviewed
Vascular studies reviewed - recommend Vascular surgery evaluation
Toe is dry - no bandages required. Monitor site for demarcation
May weight bear in a surgical shoe.
--- NOTE | 2024-01-24 13:34 | CM ---
Patient seen at bedside with son
IA completed
Dx: R foot cellulitis
ID consulted
PMH: AFIB, CVA w/cognitive impairment expressive aphasia, DM w/peripheral neuropathy
Lives with and daughter (son in college), in 2 story home, 2 steps to enter, 14 steps to 2nd floor
Powder room on 1st floor. Walk in shower on 2nd floor.
PLOF: per son needs assistance with climbing stairs, does not use walker, cane.
Impulsive, never left alone
Has had [facility] in past/[facility] in past
PT will follow and make recommendation
PCP: Dwight Tovar
Pharmacy: [facility], [place]
PLAN: CM to follow hospitalization progression for needs
--- NOTE | 2024-01-24 13:36 | WOUNDNOTE ---
WOC RN NOTE: Patient consulted for right great toe wound. Pictures taken. No open wound at this time so need for local wound care. Podiatry to follow.
--- NOTE | 2024-01-24 15:09 | W.PN.HOSP.TC ---
Today's Communication/Plan
-
can cont abx for now
vascular consulted - anticipate angiogram
hep ggt
Assessment / Plan
Assessment / Plan
Physical Exam
General: Well Developed and Well Nourished
HEENT: Anicteric and Moist mucous membranes
Respiratory: Clear and Non Labored Respirations
Cardiac: S1/S2 and Regular Rhythm
GI: Soft and Non Tender
Musculoskeletal: No Clubbing and No Cyanosis
Skin: Warm, Dry and Other (Moderate erythema right great toe extending)
Neuro: Awake, Alert and Other (Moves all four extremities appropriate)
Psych: Calm
#?Right hallux Cellulitis
#Ischemic changes distal hallux
-Podiatry and ID were consulted
-EVON with significant worsening in PAD and distal popliteal stent occlusion
-consult vascular - anticipate angiogram
-not wet gangrene
-can cont abx for now, f/u cultures
-local care
Paroxysmal Atrial Fibrillation
-Transition Eliquis to heparin drip should patient require surgical intervention
-Continue metoprolol for rate control
Peripheral Arterial Disease s/p RLE Stent
-Continue aspirin
Left Thalamic Stroke with Residual Expressive Aphasia and Cognitive Impairment
-Continue Namenda
-Monitor for mood/behavior changes
-Per Family patient does not respond well to benzodiazepines and family asks to avoid benzos during hospitalization
Diabetes Mellitus, Type II
-Hold oral meds
-Monitor sugars and continue coverage insulin
Diabetes Neuropathy
-Continue duloxetine
Essential Hypertension
-Continue lisinopril and metoprolol with hold parameters
Hyperlipidemia
-Continue atorvastatin
Asthma, no acute exacerbation
-Patient maintained on Dupixent as outpatient
Peptic Ulcer Disease
-Continue Protonix
DVT proph: Heparin drip
Code Status: Full Code
Total time spent on today's encounter was 50 minutes which included time spent in counseling the patient/family regarding diagnosis and treatment plan as listed above, goals of care, and symptom management. Case was discussed with nursing staff,
specialists, and care coordinators/case management. All labs and imaging personally reviewed by me. Remainder the time spent in detailed review of previous records, lab data, imaging, and other medical provider documentation.
Anticipated Discharge: > 48 hours
Subjective/Interval History
-
Date of Service: January 24, 2024
toe redness/cool - suggest pad
Objective Data
-
Labs:
Laboratory Results
01/24/24 01/24/24
11:14 18:00
WBC 6.8
Hgb 8.9 L
Hct 28.9 L
Plt Count 218
APTT 56.5 H Pending
Sodium 136
Potassium 4.1
Chloride 104
Carbon Dioxide 24
BUN 16
Creatinine 0.8
Glucose 125 H
Calcium 10.0
Vital Signs:
Vital Signs
Temp Pulse Resp BP Pulse Ox
98.3 F 81 12 117/93 96
01/24/24 07:31 01/24/24 07:31 01/24/24 07:31 01/24/24 07:31 01/24/24 07:31
I&O
01/23/24 01/24/24 01/25/24
06:59 06:59 06:59
Intake Total 120 / 120
Balance 120 / 120
Review of Systems
-
History Source: Patient
All other systems: Not reviewed unless documented
Physical Exam
-
General: Well Developed, Well Nourished, No Apparent Distress, Comfortable and Obese
HEENT: Normocephalic and Atraumatic
Respiratory: Clear to Auscultation and Non Labored Respirations; Negative Wheezes or Accessory Resp Muscle Use
Cardiac: Regular Rhythm and S1/S2
Breast: Deferred by me
GI: Soft, Nontender and Nondistended
Rectal: Deferred by Provider
Genito-urinary: Deferred by me
Skin: Warm and Other (R foot in wound dressing)
Neuro: Awake and Alert
Psych: Calm and Intact Judgement/Insight
Data Reviewed
-
Diagnostic Radiology: Report Reviewed by me
Ultrasound: Report Reviewed by me
Labs: Labs Reviewed by me
--- NOTE | 2024-01-24 15:47 | CON.VAS ---
Consultation
Consultation Request
Date/Time Consultation Performed: 01/24/24
Requesting Provider: Hospitalist
Performing Provider: Candelaria Grimaldo, MIRANDA-C for Donnie Marti MD
Reason for Consultation: Right hallux nonhealing wound
Medical History
-
Chief Complaint: Right hallux nonhealing wound
History of Present Illness:
This is a 56-year-old female with significant past medical history for asthma, CAD, stroke with residual deficit of aphasia, GERD, hypertension, diabetes, and peripheral vascular disease who presents to [facility] with reports of chronic
nonhealing right hallux wound. Patient son is at bedside attributing to HPI as patient is a poor historian with aphasia following stroke several years ago. Patient is known to our service that she underwent Balloon angioplasty and drug-eluting
stent placement to the right superficial femoral artery/popliteal artery (6 mm x 120 mm Zilver PTX) with Dr. Jose Guadalupe Mancini on 03/28/2023 for poorly healing right second toe wound/amputation site. Her and her son note that roughly a month ago they
noted a small break in her right hallux they are unclear how it necessarily occurred, patient was seen by train engineer Dr. Hooks who has been managing wound in the outpatient setting. However over the past 48 hours patient is complaining of
increased pain and they noted increased erythema to the base of the foot. Arterial duplex with EVON/TBI was obtained which noted decreased EVON and concern for stenosis at SFA stent, prompting vascular consultation.
Past Medical History
Past Medical History: Arrhythmias, Asthma, CAD, CVA (Deficit of aphasia following stroke), GERD, HTN, NIDDM and Other (Peripheral arterial disease, diabetic neuropathy, hyperparathyroid)
Past Surgical History: Appendectomy, Cholecystectomy and Other (Herniorrhaphy, exploratory laparotomy, right second digit amputation, right lower extremity arteriogram and balloon angioplasty and drug-eluting stent placement to the right superficial
femoral artery/popliteal artery by Dr. Mancini on 03/28/23)
Social History
Tobacco: Non-Smoker
Alcohol: None
Personal:
Living: With Family
Allergies / Home Medications
Allergy/AdvReac Type Severity Reaction Status Date / Time
cefuroxime Allergy Hives. Verified 01/23/24 19:01
03/2023
tolerated
course
unasyn and
augmentin
cefuroxime axetil Allergy Hives, Verified 01/23/24 19:01
[From Ceftin] 03/2023
tolerated
course
unasyn and
augmentin
cephalexin monohydrate Allergy Hives, Verified 01/23/24 19:01
[From Keflex] 03/2023
tolerated
course
unasyn and
augmentin
erythromycin base Allergy Hives Verified 01/23/24 19:01
morphine Allergy Itching Verified 01/23/24 19:01
oxycodone [From Percocet] Allergy Nausea / Verified 01/23/24 19:01
Vomiting
vancomycin Allergy Itching Verified 01/23/24 19:01
�Medication �Instructions �Recorded �Confirmed �Type
atorvastatin 40 mg tablet 40 mg PO QPM High cholesterol 05/21/21 01/23/24 History
metformin 1,000 mg tablet 1,000 mg PO BID Diabetes 05/21/21 01/23/24 History
pantoprazole 20 mg tablet,delayed 20 mg PO DAILY Gastrointestinal 05/21/21 01/23/24 History
release (Protonix) issue
duloxetine 30 mg capsule,delayed 30 mg PO QPM Mental Health/Anxiety 10/25/21 01/23/24 History
release
dupilumab 300 mg/2 mL subcutaneous 300 mg SC Q2W Lung/breathing issues 10/25/21 01/23/24 History
pen injector (Dupixent)
lisinopril 10 mg tablet 10 mg PO DAILY Blood pressure 10/25/21 01/23/24 History
apixaban 5 mg tablet (Eliquis) 5 mg PO BID Blood Clot 03/23/23 01/23/24 History
Prevention/Tx
memantine 10 mg tablet 10 mg PO BID memory impairment 03/23/23 01/23/24 History
metoprolol succinate 25 mg 25 mg PO QPM Blood Pressure 03/23/23 01/23/24 History
tablet,extended release 24 hr
(Toprol XL)
aspirin 81 mg tablet,delayed 81 mg PO DAILY #30 tabs 03/29/23 01/23/24 Rx
release
nitrofurantoin macrocrystal 50 mg 50 mg PO QPM 12/19/23 01/23/24 History
capsule
glipizide 5 mg tablet 5 mg PO DAILY Gastrointestinal 01/24/24 01/23/24 History
Issue
Review of Systems
-
History Source: Patient and Family
Constitutional: Reports No Symptoms
EENT: Reports No Symptoms
Respiratory: Reports No Symptoms
Cardiac: Reports No Symptoms
Abdomen/GI: Reports No Symptoms
: Reports No Symptoms
Musculoskeletal: Reports No Symptoms
Skin: Reports Other (Worsening right hallux wound)
Neurological: Reports No Symptoms
Endocrine: Reports No Symptoms
Physical Exam
Vital Signs
Temp Pulse Resp BP Pulse Ox
98.3 F 81 12 117/93 96
01/24/24 07:31 01/24/24 07:31 01/24/24 07:31 01/24/24 07:31 01/24/24 07:31
Lab Results
01/24/24 11:14
01/24/24 11:14
Physical Exam
General: No Apparent Distress and Comfortable
HEENT: Normocephalic, Anicteric and Atraumatic
Cardiac: Negative JVD
GI: Soft, Non Tender and Non Distended
Musculoskeletal: No Edema
Skin: Other (Erythema noted at right hallux, painful to palpation)
Neuro: Other (Aphasia noted, poor historian)
Pulses: Bilateral Femoral: +2 (Right distal DP/PT pulse nonpalpable)
Assessment / Plan
-
Assessment: 53-year-old female with peripheral arterial disease and nonhealing right hallux wound
Plan:
Arterial duplex with decreased EVON concern for in-stent stenosis at right lower extremity, recommend proceeding with right lower extremity angiogram to evaluate degree of stenosis or any other arterial disease that may be amendable to endovascular
intervention. Will place patient tentatively on OR schedule for tomorrow (01/25/2024), with Dr. Donnie Marti.
N.p.o. at midnight
HPI, review of systems, and physical exam reviewed with attending Dr. Donnie Marti, attending agrees with plan.
Updated hospitalist via [place] text
[2024-01-24] MEDS: CYMBALTA DELAYED RELEASE 30 MG PO (16:48)
[2024-01-24] MEDS: LIPITOR 40 MG PO (16:48)
[2024-01-24] MEDS: TOPROL XL PO (16:49)
[2024-01-24] MEDS: NORCO 5/325 1 TABLET PO ×2 (17:04→20:58)
[2024-01-24 17:14] LABS: Glucose - Point of Care 148 mg/dl (70-99)
[2024-01-24 21:39] LABS: Glucose - Point of Care 224 mg/dl (70-99)
[2024-01-25] VITALS (17 sets, daily range): BP systolic 85–181; BP diastolic 41–92
[2024-01-25 00:33] LABS: APTT 123.1 Sec (23.4-35.0)
[2024-01-25] MEDS: UNASYN IV ×4 (02:25→20:42)
[2024-01-25] MEDS: NORCO 5/325 1 TABLET PO (02:26)
[2024-01-25] MEDS: HEPARIN 25000 UNITS/250 ML IV (03:30)
[2024-01-25 05:51] LABS: Glucose - Point of Care 220 mg/dl (70-99)
[2024-01-25] MEDS: NOVOLOG FLEXPEN-LOW RESISTANCE 2 UNITS SC ×2 (07:25→17:51)
[2024-01-25] MEDS: ASPIR LOW (ENTERIC COATED) 81 MG PO (08:07)
[2024-01-25] MEDS: NAMENDA 10 MG PO ×2 (08:07→20:42)
[2024-01-25] MEDS: ZESTRIL 10 MG PO (08:07)
[2024-01-25] MEDS: VIBRAMYCIN 100 MG PO ×2 (08:07→20:42)
[2024-01-25] MEDS: PROTONIX 20 MG PO (08:07)
--- NOTE | 2024-01-25 08:09 | W.PN.UPDATE ---
Update Note
Progress Note Update
Seen and evaluated. See full consultation by MIRANDA Grimaldo. Agree with findings. 53-year-old female with significant medical history, including history of stroke that has left her somewhat cognitively impaired. She has known history of peripheral
arterial disease status post right lower extremity arteriogram and stenting, and history of toe amputation that subsequently healed. Now presents with about 1 month of new right first toe issue with now worsening redness around the area. On
exam/her right lower extremity has 1+/2+ femoral pulse (same on the left). Nonpalpable distally on the right. Foot is warm. First toe with distal ischemic changes, possible early gangrene. Slight erythema/cellulitis surrounding.
Noninvasive studies reviewed. Significant drop in her EVON to 0.42 with concern for occlusion of her stent.
Plan/I discussed extensively with patient's daughter at the bedside. Discussed concern for ischemic changes to the toe. Discussed findings of ultrasound. Discussed therefore recommendation for arteriogram. Discussed risks of procedure including
but limited to bleeding, arterial injury/worsened or acute limb ischemia, thrombotic or embolic complications, renal failure. I also discussed potential need for staged surgical intervention if felt not to be best treated with endovascular therapy
or if unable to treat endovascularly. She understands all and wishes for us to proceed. She has been added onto the schedule for today for arteriogram already.
[2024-01-25 08:39] LABS: Hematocrit 27.1 % (37.0-47.0); Hemoglobin 8.5 g/dL (12.0-16.0); Mean Corp Hgb Conc. 31.4 g/dL (33.0-37.0); Mean Corpuscular Hgb 23.1 pg (27.0-31.0); Mean Corpuscular Volume 73.6 fL (81.0-99.0); Mean Platelet Volume 10.4 fL (7.4-10.4); Platelet Count 217 10^3/uL (130-400); Red Blood Cell Count 3.68 10^6/uL (4.20-5.40); Red Cell Dist. Width 16.8 % (11.5-14.5); White Blood Cell Count 6.2 10^3/uL (4.8-10.8)
[2024-01-25 08:52] LABS: INR 1.11; PT 14.8 Sec (11.4-14.6)
[2024-01-25 08:55] LABS: APTT 135.8 Sec (23.4-35.0)
[2024-01-25 09:17] LABS: ALT (SGPT) 47 U/L (0-35); AST (SGOT) 35 U/L (14-36); Albumin 3.3 g/dl (3.5-5.0); Alkaline Phosphatase 155 U/L (38-126); Blood Urea Nitrogen 19 mg/dl (7-17); Carbon Dioxide 24 mmol/L (22-30); Chloride 104 mmol/L (98-107); Estimated Creatinine Clearance 81 ml/min; Glucose 204 mg/dl (70-99); Sodium 135 mmol/L (135-145); Total Bilirubin 0.7 mg/dl (0.2-1.3); Total Protein 5.8 g/dl (6.3-8.2); eGFR > 60.00
--- NOTE | 2024-01-25 09:31 | PTCARENOTE ---
PTT assessment, 135, Heparin gtt running at 1100 units/hr placed on hold @ 0915 as per protocol. Report called to OR. CHG wipes and nasal antiseptic preformed. Heparin gtt off but sent to OR on bed.
--- NOTE | 2024-01-25 09:50 | PTCARENOTE ---
Received pt from [address] [place] [address]. Pt lethargic with diminished cognitive abilities d/t stroke. Daughter with patient and providing history. Pt mental status unchanged from home. Pt with doppler dp pulses,vss. Int's flushed without difficulty. Seen by
anesthesia. Lungs clear with good effort.
--- NOTE | 2024-01-25 10:32 | CM ---
Addendum entered by Lennie Branch 01/25/24 14:52:
Patient returned to room from PACU
Daughter Mira at bedside.
States has had [facility] in past. PT rec HH
Ref[facility] for [facility], Angy liaison notified.
PLAN: home with [facility]
Original Note:
Patient not available
Arteriogram
PT recommending HH
Will discuss with
PLAN: CM to follow post procedure
--- NOTE | 2024-01-25 12:35 | W.SUR.POST ---
Surgical Immediate Post Op
Note
Pre Op Diagnosis: Right hallux wound
Post Op Diagnosis: Right hallux wound
Procedure Performed: Right lower extremity angiogram, Viabahn stent to in-stent stenosis of right SFA into above-knee pop
Primary Surgeon: Donnie Marti MD
Secondary Surgeons: N/A
Anesthesia: MAC
Estimated Blood Loss: Less than 2 mL
Fluids: See anesthesia flowsheet
Drains/Shunts: N/A
Specimens/Cultures: None
Doppler/Duplex/Angio (Y/N): Y
Complications: None
Operative Findings: Right lower extremity with Doppler signal
[2024-01-25 12:54] LABS: Glucose - Point of Care 185 mg/dl (70-99)
--- NOTE | 2024-01-25 13:09 | W.PN.HOSP.TC ---
Today's Communication/Plan
-
angiogram today s/p stent
hep ggt - transition to noac if no further surgery by podiatry
id recs for abx
Assessment / Plan
Assessment / Plan
Physical Exam
General: Well Developed and Well Nourished
HEENT: Anicteric and Moist mucous membranes
Respiratory: Clear and Non Labored Respirations
Cardiac: S1/S2 and Regular Rhythm
GI: Soft and Non Tender
Musculoskeletal: No Clubbing and No Cyanosis
Skin: Warm, Dry and Other (Moderate erythema right great toe extending)
Neuro: Awake, Alert and Other (Moves all four extremities appropriate)
Psych: Calm
#?Right hallux Cellulitis
#Ischemic changes distal hallux
-Podiatry and ID were consulted
-EVON with significant worsening in PAD and distal popliteal stent occlusion
-not wet gangrene
-can cont abx for now, f/u cultures
-local care
#Peripheral Arterial Disease s/p RLE Stent
#In-stent stenosis of right SFA
--EVON with significant worsening in PAD and distal popliteal stent occlusion
-angiogram today
-stent placed
-Currently on hep ggt - can transition to NOAC if no further procedures by podiatry
-asa
Paroxysmal Atrial Fibrillation
-Transition Eliquis to heparin drip should patient require surgical intervention
-Continue metoprolol for rate control
Left Thalamic Stroke with Residual Expressive Aphasia and Cognitive Impairment
-Continue Namenda
-Monitor for mood/behavior changes
-Per Family patient does not respond well to benzodiazepines and family asks to avoid benzos during hospitalization
Diabetes Mellitus, Type II
-Hold oral meds
-Monitor sugars and continue coverage insulin
Diabetes Neuropathy
-Continue duloxetine
Essential Hypertension
-Continue lisinopril and metoprolol with hold parameters
Hyperlipidemia
-Continue atorvastatin
Asthma, no acute exacerbation
-Patient maintained on Dupixent as outpatient
Anemia, Chronic
-ctm
Peptic Ulcer Disease
-Continue Protonix
DVT proph: Heparin drip
Code Status: Full Code
Total time spent on today's encounter was 52 minutes which included time spent in counseling the patient/family regarding diagnosis and treatment plan as listed above, goals of care, and symptom management. Case was discussed with nursing staff,
specialists, and care coordinators/case management. All labs and imaging personally reviewed by me. Remainder the time spent in detailed review of previous records, lab data, imaging, and other medical provider documentation.
Anticipated Discharge: Within 24 hours
Subjective/Interval History
-
Date of Service: January 25, 2024
Angiogram today
Objective Data
-
Labs:
Laboratory Results
01/25/24 01/25/24
06:00 07:44
WBC 6.2
Hgb 8.5 L
Hct 27.1 L
Plt Count 217
PT Cancelled 14.8 H
INR Cancelled 1.11
APTT Cancelled 135.8 H
Sodium 135
Potassium 4.0
Chloride 104
Carbon Dioxide 24
BUN 19 H
Creatinine 0.8
Glucose 204 H
Calcium 10.0
Total Bilirubin 0.7
AST 35
ALT 47 H
Alkaline Phosphatase 155 H
Vital Signs:
Vital Signs
Temp Pulse Resp BP Pulse Ox
97.0 F 86 15 104/50 90
01/25/24 12:30 01/25/24 12:30 01/25/24 12:30 01/25/24 12:30 01/25/24 12:30
I&O
01/24/24 01/25/24 01/26/24
06:59 06:59 06:59
Intake Total 120 / 120 480 / 480
Balance 120 / 120 480 / 480
Review of Systems
-
History Source: Patient
All other systems: Not reviewed unless documented
Physical Exam
-
General: Well Developed, Well Nourished, No Apparent Distress, Comfortable and Obese
HEENT: Normocephalic and Atraumatic
Respiratory: Clear to Auscultation and Non Labored Respirations; Negative Wheezes or Accessory Resp Muscle Use
Cardiac: Regular Rhythm and S1/S2
Breast: Deferred by me
GI: Soft, Nontender and Nondistended
Rectal: Deferred by Provider
Genito-urinary: Deferred by me
Skin: Warm and Other (R foot in wound dressing)
Neuro: Awake and Alert
Psych: Calm and Intact Judgement/Insight
Data Reviewed
-
Diagnostic Radiology: Report Reviewed by me
Ultrasound: Report Reviewed by me
Labs: Labs Reviewed by me
[2024-01-25] MEDS: NOVOLOG vial 1 UNITS SC (13:20)
[2024-01-25] MEDS: NOVOLOG FLEXPEN-LOW RESISTANCE SC (13:46)
--- NOTE | 2024-01-25 13:54 | OR.RPT ---
Operative Report
Operative Report
PROCEDURE DATE: 01/25/2024
Preoperative diagnosis:
1. Severe peripheral arterial disease with ischemic changes to right first toe.
2. History of right lower extremity angioplasty/stenting with concern for stent occlusion.
Postoperative diagnosis: Same
Procedure:
1. Duplex assisted left common femoral artery cannulation.
2. Aortogram and pelvic angiogram.
3. Right lower extremity arteriogram with third order vessel catheterization of right peroneal artery via left common femoral artery puncture.
4. Placement of covered stent right distal SFA/popliteal artery above the knee with then pre-existing stent (in-stent restenosis) with [place] Viabahn 6 mm x 10 cm covered stent.
5. Left femoral angiogram with percutaneous suture closure device (VISup Perclose) left common femoral artery.
6. Supervision and interpretation.
Surgeon: Figueroa
Stock Sheets Cleaner Inspector: None
Complications:[]
Anesthesia: Local, sedation
Fluoroscopy:
7.6 min
52 mGy
13.84 Gy.cm2
Indications for procedure:
Right first toe ischemic changes. Noninvasive studies suggested occlusion within her right lower extremity stent. Significant drop in EVON. Risk/benefits/alternatives of angiography discussed with patient's daughter. She understood all wished for
us to proceed.
Description of procedure:
Patient was identified, brought to the operating room. Placed on the table in the supine position. After the adequate administration of anesthesia, the patient was prepped and draped in the standard surgical fashion. A standard preoperative
timeout was undertaken and everybody was in agreement with the plan.
The left common femoral artery was accessed with a micropuncture kit under direct duplex ultrasound guidance. A 5 Maldivian sheath was then advanced over a 0.035 inch wire, and a miner's hook catheter was advanced into the abdominal aorta.
Aortogram and pelvic angiogram was obtained. Findings as follows:
Infrarenal aorta: Patent with no significant stenosis.
Right common iliac artery: Patent with no significant stenosis.
Right external iliac artery: Patent with no significant stenosis.
Left common iliac artery: Patent with no significant stenosis.
Left external iliac artery: Patent with no significant stenosis.
Using a floppy angled hydrophilic wire, the right common femoral artery was cannulated and the catheter was advanced. Right lower extremity arteriogram was obtained. Findings as follows:
Common femoral artery: Patent with no significant stenosis.
Profunda femoris artery: Patent with no significant stenosis
Superficial femoral artery: Patent with mid segment luminal irregularity, may be mild stenosis. Did not appear hemodynamically significant. Then the stent in the distal superficial femoral artery was patent proximally and into the transition to
the above-knee popliteal artery (minimal luminal irregularity at the proximal edge of the stent, but resulted in no significant stenosis), but at that exact juncture at the cortex of the bone, there was a severe stenosis/occlusion. There was flow
distal to here. And then again there was another occlusion and string-like stenosis following an area of moderate stenosis within the stent. Beyond here at the edge of the stent distally there is reconstituted normalized flow in the popliteal
artery. Gave rise to two-vessel runoff via anterior tibial and peroneal artery.
Popliteal artery: Stenosis as noted above within the stent, but the behind knee and below-knee popliteal artery was patent with no stenosis.
Anterior tibial artery: Patent, dominant runoff vessel to the foot. On the foot itself gave rise to the dorsalis pedis, which collateralized onto the foot, but did not reconstitute the pedal arch.
Tibial peroneal trunk: Patent with no significant stenosis.
Peroneal artery: Patent secondary runoff vessel to the ankle. Gave collateralizations with reconstituted diminutive appearing plantar branch.
Posterior tibial artery: Chronically occluded
At this point I selectively cannulated the proximal superficial femoral artery and then exchanged for a Storq wire and an up and over 6 Maldivian sheath. I gave the patient 6 as needed's of intravenous heparin. Next under roadmap assisted guidance I
used a flopping of hydrophilic wire and a CXI catheter to traverse the area of severe in-stent stenosis/occlusions. My wire went through relatively easily as did the CXI catheter. This raise concern that there may have been thrombotic
stenoses/occlusion here. Therefore, I elected to primarily stented this with a covered stent. I felt that there was a two-vessel runoff and it was reasonable to use a covered stent. Therefore, at this point I guided my Glidewire and CXI catheter
into the peroneal artery. I then exchanged for a V18 wire. I then used a [place] Viabahn 6 mm x 10 cm covered stent which I deployed covering the areas of stenoses (of note I did have a little difficulty pushing these through the area of stenosis
which suggested that may not have been completely thrombotic and there may have been an intimal hyperplastic problem in actuality). I then post angioplastied this with a 6 mm angioplasty balloon which I expanded to profile. Completion angiogram
now demonstrated an excellent result with no residual stenosis and brisk flow now into the runoff. Runoff flow was stable. At this point I was very satisfied. I withdrew my sheath to the left external iliac artery over a 0.035 inch wire. Left
femoral angiogram demonstrated good puncture in the left common femoral artery. I therefore then used a percutaneous suture closure device using an VISup Perclose percutaneous suture to close the common femoral artery. Manual pressure was also
applied and protamine was given to reverse the heparin. The patient tolerated procedure well, and had a palpable DP pulse in the right foot upon completion.
[2024-01-25] MEDS: NSS 1000 IV (14:07)
--- NOTE | 2024-01-25 14:18 | PTCARENOTE ---
Pt returned from PACU, drowsy but alert. Denies pain. Daughter at bedside. VSS BP 96/51. L groin intact, gauze and tegader dressing c/d/i. R DP pulse present w/ doppler, L PT pulse present w/ doppler. Hemostasis established @ 1210 per PACU report.
HOB raised to 30 degrees at this time. Plan for bedrest for 6 hrs until 1809. Will continue to monitor.
--- NOTE | 2024-01-25 15:42 | VNURNOTE ---
Home Health Liaison spoke with primary contact Mira to discuss [facility] nurse/therapy, visits, schedule and homebound status. She is familiar with [facility] services and is agreeable. She understands that visits at home will be 2-3 x per week to assess and
teach medical management. Daughter is aware that [facility] will contact them for start of care in 1-2 days after discharge from . [facility] referral in [facility].
[2024-01-25] MEDS: CYMBALTA DELAYED RELEASE 30 MG PO (17:42)
[2024-01-25] MEDS: TOPROL XL PO (17:43)
[2024-01-25] MEDS: LIPITOR 40 MG PO (17:44)
[2024-01-25] MEDS: ELIQUIS 5 MG PO (17:44)
[2024-01-25 17:49] LABS: Glucose - Point of Care 217 mg/dl (70-99)
[2024-01-25] MEDS: DULCOLAX 10 MG RECTAL (21:28)
[2024-01-25 21:38] LABS: Glucose - Point of Care 362 mg/dl (70-99)
[2024-01-25] MEDS: NOVOLOG FLEXPEN 5 UNITS SC (22:00)
[2024-01-26 00:12] LABS: Glucose - Point of Care 287 mg/dl (70-99)
[2024-01-26] MEDS: TYLENOL 650 MG PO (00:35)
--- NOTE | 2024-01-26 01:15 | PTCARENOTE ---
Patient spiked a temperature at 00:15 of 100.9, she is s/p angiogram today, her vascular checks are wnl, right leg slightly more swollen and warm than yesterday, reached out to Yaa NINO regarding new temp, above findings and her procedure
today. Tylenol was given, MICA stated to monitor temp could be related to the intubation, micro aspiration, atelectasis ETC. patient has multiple abx allergies.
[2024-01-26] MEDS: UNASYN IV ×2 (02:36→07:54)
[2024-01-26 02:52] VITALS: BP 96/62
[2024-01-26 07:30] VITALS: BP 127/85
[2024-01-26 07:50] LABS: Glucose - Point of Care 230 mg/dl (70-99)
[2024-01-26] MEDS: FLUSH (NSS) 1 FLUSH IV (07:53)
--- NOTE | 2024-01-26 08:26 | W.PN.POD ---
Today's Communication
Today's Communication
Right hallux ischemic changes
Assessment / Plan
-
Severe peripheral arterial disease with ischemic changes to right first toe
S/P Right lower extremity angiogram, Viabahn stent to in-stent stenosis of right SFA into above-knee pop
Continue to keep toe dry, plan to monitor for demarcation versus recovery of distal hallux soft tissues.
Explained to daughter that if the tissue does not recover, she may require partial vs. total hallux amputation at some point.
Recommend we follow her as an outpatient.
She may weight bear in a surgical shoe
Subjective
Chief Complaint
Right LE peripheral arterial disease with hallux ischemic changes
Subjective
Patient is seen at bedside she is awake and her daughter is at bedside. Patient is not oriented.
Objective
Temp Pulse Resp BP Pulse Ox
99.2 F 100 18 96/62 96
01/26/24 02:52 01/26/24 02:52 01/26/24 02:52 01/26/24 02:52 01/26/24 02:52
Vital Signs and Lab results were reviewed.
Physical Exam
Physical Exam
Right foot warm to touch is palpable pulses, there is diffuse erythema of the forefoot. The hallux has some dry ischemic changes at the distal aspect of the toe distal tot he nail plate. No fluctuance or drainage from the site. Area is not tender
touch.
--- NOTE | 2024-01-26 08:26 | W.PN.VS ---
Today's Communication / Plan
-
Discussed with Dr. Mancini
Assessment/Plan
-
POD 1 Right lower extremity angiogram, Viabahn stent to in-stent stenosis of right SFA into above-knee pop
Plan:
-Patient okay for discharge from vascular standpoint, follow-up added to discharge instructions
Subjective Data
-
Date of Service: January 26, 2024
Patient seen at bedside exam. Patient offers no complaints at this time. Groin site stable. Patient ambulated through the room with ease.
Objective Data
-
Vital Signs
Temp Pulse Resp BP Pulse Ox
99.2 F 100 18 96/62 96
01/26/24 02:52 01/26/24 02:52 01/26/24 02:52 01/26/24 02:52 01/26/24 02:52
Intake and Output
01/25/24 01/26/24 01/27/24
06:59 06:59 06:59
Intake Total 480 / 480 1916 / 1916
Output Total 250 / 250
Balance 480 / 480 1666 / 1666
Intake:
Oral fluids 480 / 480 900 / 900
IV fluids (Total) 966 / 966
Heparin 11 / 11
Normosol 75 / 75
IV piggybacks 50 / 50
Output:
Urine, Voided 250 / 250
Other:
Number of approximated MODERATE 6
amounts of urine
Number of approximated LARGE 2
amounts of urine
How many times incontinent 1
SMALL amount urine
How many times incontinent 5
MODERATE amount urine
Number of unmeasured liquid
stools
Rectum 1
Calcium 10.0 mg/dl (8.4-10.2) 01/25/24 07:44
Total Bilirubin 0.7 mg/dl (0.2-1.3) 01/25/24 07:44
AST 35 U/L (14-36) 01/25/24 07:44
ALT 47 U/L (0-35) H 01/25/24 07:44
Alkaline Phosphatase 155 U/L (38-126) H 01/25/24 07:44
Total Protein 5.8 g/dl (6.3-8.2) L 01/25/24 07:44
Albumin 3.3 g/dl (3.5-5.0) L 01/25/24 07:44
Physical Exam
-
AAOx3
No tachypnea
No tachycardia
Abdomen soft
Groin site clean, dry, intact, flat, soft
Bilateral feet warm, pink
[2024-01-26 08:47] LABS: INR 1.18; PT 15.3 Sec (11.4-14.6)
[2024-01-26 08:48] LABS: APTT 42.8 Sec (23.4-35.0)
[2024-01-26 08:49] LABS: Glucose - Point of Care 224 mg/dl (70-99)
[2024-01-26 09:00] LABS: Hematocrit 26.1 % (37.0-47.0); Hemoglobin 8.2 g/dL (12.0-16.0); Mean Corp Hgb Conc. 31.4 g/dL (33.0-37.0); Mean Corpuscular Hgb 23.5 pg (27.0-31.0); Mean Corpuscular Volume 74.8 fL (81.0-99.0); Mean Platelet Volume 10.5 fL (7.4-10.4); Platelet Count 223 10^3/uL (130-400); Red Blood Cell Count 3.49 10^6/uL (4.20-5.40); Red Cell Dist. Width 17.1 % (11.5-14.5); White Blood Cell Count 6.9 10^3/uL (4.8-10.8)
[2024-01-26 09:24] LABS: ALT (SGPT) 98 U/L (0-35); AST (SGOT) 50 U/L (14-36); Albumin 3.2 g/dl (3.5-5.0); Alkaline Phosphatase 194 U/L (38-126); Blood Urea Nitrogen 12 mg/dl (7-17); Calcium 9.7 mg/dl (8.4-10.2); Carbon Dioxide 22 mmol/L (22-30); Chloride 105 mmol/L (98-107); Estimated Creatinine Clearance 92 ml/min; Glucose 223 mg/dl (70-99); Potassium 4.2 mmol/L (3.5-5.1); Sodium 136 mmol/L (135-145); Total Bilirubin 0.7 mg/dl (0.2-1.3); Total Protein 5.7 g/dl (6.3-8.2); eGFR > 60.00
[2024-01-26] MEDS: NOVOLOG FLEXPEN-LOW RESISTANCE 2 UNITS SC (09:54)
[2024-01-26] MEDS: ASPIR LOW (ENTERIC COATED) 81 MG PO (09:55)
[2024-01-26] MEDS: NAMENDA 10 MG PO ×2 (09:55→20:38)
[2024-01-26] MEDS: PROTONIX 20 MG PO (09:55)
[2024-01-26] MEDS: ELIQUIS 5 MG PO ×2 (09:55→20:38)
[2024-01-26] MEDS: VIBRAMYCIN 100 MG PO (09:55)
[2024-01-26] MEDS: ZESTRIL 10 MG PO (09:56)
[2024-01-26 10:15] VITALS: BP 146/74; PULSE 92
--- NOTE | 2024-01-26 11:09 | CM ---
Patient seen at bedside with daughter
temp last night per notes
[facility] referral in place. PT rec home health
PLAN: Home with [facility] when medically stable.
--- NOTE | 2024-01-26 11:46 | W.PN.ID1 ---
Date of Service
Date of Service: January 26, 2024
Today's Communication
Transition to Augmentin
Assessment / Plan
Right hallux cellulitis
Suspected right hallux ischemia
PVD s/p revascularization
Fever
Hx CVA
DM with neuropathy
Asthma
GERD
HTN
Recommendations:
At present, no evidence of wet gangrene. May need to allow area to demarcate.
Continue with local care to the area.
Transition to oral Augmentin for the next 5 days.
Lower extremity elevation to the level of the heart to prevent ongoing edema
Given suspicion of a thrombotic event causing the current toe appearance, will need very close follow-up by Podiatry.
Patient at high risk for toe loss given underlying diabetes and current comorbidities.
����������������������������������������������������������
Chief Complaint
-: Cellulitis
Subjective / Review of Systems
Patient seen and examined. Isolated temp noted overnight.
Vital Signs / Physical Exam
Vital Signs
Vital Signs
Temp Pulse Resp BP Pulse Ox
98.8 F 92 16 146/74 96
01/26/24 07:30 01/26/24 09:56 01/26/24 07:30 01/26/24 09:56 01/26/24 07:30
Physical Exam
Constitutional: No Acute Distress, Comfortable and Non-toxic
Eyes: Sclera Anicteric
Cardiovascular: Regular Rate and S1/S2
Pulmonary: Clear and Symmetric; Negative Wheezes or Rales
Gastrointestinal: Soft, Non Tender, Non Distended and Normal Bowel Sounds
Skin: Warm and Dry; Negative Rash or Jaundice
Wound: Other (Right foot with 2+ edema. Right hallux with some degree of maceration. Wounds are dry.)
Neurological: Awake and Alert
Psychological: Calm
Objective Data
Lab Data
Lab Results
01/26/24 07:39
01/26/24 07:39
PT 15.3 Sec (11.4-14.6) H 01/26/24 07:39
INR 1.18 01/26/24 07:39
APTT 42.8 Sec (23.4-35.0) H 01/26/24 07:39
Estimated Creat Clear 92 ml/min 01/26/24 07:39
Lactic Acid 1.6 mmol/L (0.7-2.0) 01/23/24 19:08
Total Bilirubin 0.7 mg/dl (0.2-1.3) 01/26/24 07:39
AST 50 U/L (14-36) H 01/26/24 07:39
ALT 98 U/L (0-35) H 01/26/24 07:39
Alkaline Phosphatase 194 U/L (38-126) H 01/26/24 07:39
Most recent labs reviewed.
Micro Results:
01/24/24 11:14 Blood Culture - Preliminary
Blood/Venous No Growth in 48 hours- Final report to follow
01/24/24 12:31 Blood Culture - Preliminary
Blood/Venous No Growth in 24 hours- Final report to follow
Imaging:
01/24/2024 right foot x-ray: Official report pending. Patient is s/p right second toe amputation. No apparent cortical irregularities of right hallux. Film personally viewed.
Care Review
Plan reviewed with: Physician (Hospitalist)
--- NOTE | 2024-01-26 12:28 | W.PN.HOSP.TC ---
Today's Communication/Plan
-
Transition to oral antibiotics
Monitor fever curve, ensure fever free for 24 hours
Right upper quadrant sonogram
Assessment / Plan
Assessment / Plan
Physical Exam
General: Well Developed and Well Nourished
HEENT: Anicteric and Moist mucous membranes
Respiratory: Clear and Non Labored Respirations
Cardiac: S1/S2 and Regular Rhythm
GI: Soft and Non Tender
Musculoskeletal: No Clubbing and No Cyanosis
Skin: Warm, Dry and Other (Moderate erythema right great toe extending); Warm; hallux has some dry ischemic changes at the distal aspect of the toe distal tot he nail plate. No fluctuance or drainage from the site. not tender touch.
Neuro: Awake, Alert and Other (Moves all four extremities appropriate)
Psych: Calm
#Right hallux Cellulitis
#Ischemic changes distal hallux
-Podiatry and ID were consulted
-EVON with significant worsening in PAD and distal popliteal stent occlusion
-not wet gangrene
-can cont abx for now - dc on augmentin for 5 additional days
-local care
-She may weight bear in a surgical shoe
�Close podiatry follow-up
� High risk for toe loss
� Extremity elevation
#Peripheral Arterial Disease s/p RLE Stent
#In-stent stenosis of right SFA
--EVON with significant worsening in PAD and distal popliteal stent occlusion
-POD 1 Right lower extremity angiogram, Viabahn stent to in-stent stenosis of right SFA into above-knee pop
-stent placed
-transition back to NOAC
-asa
�Follow-up podiatry, vascular outpatient
Paroxysmal Atrial Fibrillation
-Transition Eliquis to heparin drip should patient require surgical intervention
-Continue metoprolol for rate control
#Febrile episode
Has defervesced on its own
� Most likely reactive/postop febrile episode
� Continue to monitor, can transition to Augmentin
� If no febrile episode within 24 hours, can discharge
� Final cultures negative
#Transaminitis
� Suspect secondary to antibiotics
� Right upper quadrant sono
� Nontender to examination
Left Thalamic Stroke with Residual Expressive Aphasia and Cognitive Impairment
-Continue Namenda
-Monitor for mood/behavior changes
-Per Family patient does not respond well to benzodiazepines and family asks to avoid benzos during hospitalization
Diabetes Mellitus, Type II
-Hold oral meds
-Monitor sugars and continue coverage insulin
Diabetes Neuropathy
-Continue duloxetine
Essential Hypertension
-Continue lisinopril and metoprolol with hold parameters
Hyperlipidemia
-Continue atorvastatin
Asthma, no acute exacerbation
-Patient maintained on Dupixent as outpatient
Anemia, Chronic
-ctm
Peptic Ulcer Disease
-Continue Protonix
DVT proph: Heparin drip
Code Status: Full Code
Total time spent on today's encounter was 51 minutes which included time spent in counseling the patient/family regarding diagnosis and treatment plan as listed above, goals of care, and symptom management. Case was discussed with nursing staff,
specialists, and care coordinators/case management. All labs and imaging personally reviewed by me. Remainder the time spent in detailed review of previous records, lab data, imaging, and other medical provider documentation.
Anticipated Discharge: Within 24 hours
Subjective/Interval History
-
Date of Service: January 26, 2024
Spiked temperature overnight
Objective Data
-
Labs:
Laboratory Results
01/26/24
07:39
WBC 6.9
Hgb 8.2 L
Hct 26.1 L
Plt Count 223
PT 15.3 H
INR 1.18
APTT 42.8 H
Sodium 136
Potassium 4.2
Chloride 105
Carbon Dioxide 22
BUN 12
Creatinine 0.7
Glucose 223 H
Calcium 9.7
Total Bilirubin 0.7
AST 50 H
ALT 98 H
Alkaline Phosphatase 194 H
Vital Signs:
Vital Signs
Temp Pulse Resp BP Pulse Ox
98.8 F 92 16 146/74 96
01/26/24 07:30 01/26/24 09:56 01/26/24 07:30 01/26/24 09:56 01/26/24 07:30
I&O
01/25/24 01/26/24 01/27/24
06:59 06:59 06:59
Intake Total 480 / 480 1916 / 1916
Output Total 250 / 250
Balance 480 / 480 1666 / 1666
Review of Systems
-
History Source: Patient
All other systems: Not reviewed unless documented
Data Reviewed
-
Diagnostic Radiology: Report Reviewed by me
Ultrasound: Report Reviewed by me
Labs: Labs Reviewed by me
[2024-01-26 12:30] LABS: Glucose - Point of Care 312 mg/dl (70-99)
[2024-01-26] MEDS: NOVOLOG FLEXPEN-LOW RESISTANCE 4 UNITS SC (13:53)
[2024-01-26] MEDS: LIPITOR 40 MG PO (16:57)
[2024-01-26] MEDS: TOPROL XL 25 MG PO (16:57)
[2024-01-26] MEDS: CYMBALTA DELAYED RELEASE 30 MG PO (16:57)
[2024-01-26] MEDS: DULCOLAX 10 MG RECTAL (16:58)
[2024-01-26 17:09] VITALS: BP 141/119
[2024-01-26] MEDS: NOVOLOG FLEXPEN-LOW RESISTANCE 3 UNITS SC (17:52)
[2024-01-26 17:53] LABS: Glucose - Point of Care 252 mg/dl (70-99)
[2024-01-26] MEDS: AUGMENTIN 875 MG/125 MG 1 TABLET PO (20:38)
[2024-01-26] MEDS: FLUSH (NSS) 2 FLUSH IV (20:46)
[2024-01-26 21:28] LABS: Glucose - Point of Care 267 mg/dl (70-99)
[2024-01-26 23:02] VITALS: BP 125/86
[2024-01-27 06:09] LABS: Hemoglobin 7.6 g/dL (12.0-16.0); Mean Corp Hgb Conc. 31.7 g/dL (33.0-37.0); Mean Corpuscular Hgb 23.4 pg (27.0-31.0); Mean Corpuscular Volume 73.8 fL (81.0-99.0); Mean Platelet Volume 10.3 fL (7.4-10.4); Platelet Count 221 10^3/uL (130-400); Red Blood Cell Count 3.25 10^6/uL (4.20-5.40); White Blood Cell Count 6.6 10^3/uL (4.8-10.8)
[2024-01-27 06:16] LABS: Glucose - Point of Care 187 mg/dl (70-99)
[2024-01-27 06:25] LABS: ALT (SGPT) 69 U/L (0-35); AST (SGOT) 22 U/L (14-36); Albumin 3.2 g/dl (3.5-5.0); Alkaline Phosphatase 157 U/L (38-126); Blood Urea Nitrogen 9 mg/dl (7-17); Calcium 9.8 mg/dl (8.4-10.2); Carbon Dioxide 26 mmol/L (22-30); Chloride 105 mmol/L (98-107); Estimated Creatinine Clearance 92 ml/min; Glucose 190 mg/dl (70-99); Potassium 4.1 mmol/L (3.5-5.1); Sodium 137 mmol/L (135-145); Total Bilirubin 0.5 mg/dl (0.2-1.3); Total Protein 5.8 g/dl (6.3-8.2); eGFR > 60.00
[2024-01-27] MEDS: NOVOLOG FLEXPEN-LOW RESISTANCE 1 UNITS SC ×2 (06:25→10:53)
[2024-01-27 08:00] VITALS: BP 99/68
[2024-01-27] MEDS: PROTONIX 20 MG PO (08:12)
[2024-01-27] MEDS: ZESTRIL PO ×2 (08:12→08:17)
[2024-01-27] MEDS: ASPIR LOW (ENTERIC COATED) 81 MG PO (08:12)
[2024-01-27] MEDS: NAMENDA 10 MG PO ×2 (08:12→19:18)
[2024-01-27] MEDS: AUGMENTIN 875 MG/125 MG 1 TABLET PO ×2 (08:13→19:19)
[2024-01-27] MEDS: ELIQUIS 5 MG PO ×2 (08:13→19:19)
[2024-01-27 09:14] LABS: Hemoglobin 7.6 g/dL (12.0-16.0)
--- NOTE | 2024-01-27 09:18 | PTCARENOTE ---
BP this AM is 99/48, Hgb came back at 7.6. made aware.
[2024-01-27 10:30] LABS: Glucose - Point of Care 176 mg/dl (70-99)
--- NOTE | 2024-01-27 13:16 | W.PN.HOSP.TC ---
Today's Communication/Plan
-
monitor hgb
iron labs
abx
Assessment / Plan
Assessment / Plan
Physical Exam
General: Well Developed and Well Nourished
HEENT: Anicteric and Moist mucous membranes
Respiratory: Clear and Non Labored Respirations
Cardiac: S1/S2 and Regular Rhythm
GI: Soft and Non Tender
Musculoskeletal: No Clubbing and No Cyanosis
Skin: Warm, Dry and Other (Moderate erythema right great toe extending); Warm; hallux has some dry ischemic changes at the distal aspect of the toe distal tot he nail plate. No fluctuance or drainage from the site. not tender touch.
Neuro: Awake, Alert and Other (Moves all four extremities appropriate)
Psych: Calm
#Right hallux Cellulitis
#Ischemic changes distal hallux
-Podiatry and ID were consulted
-EVON with significant worsening in PAD and distal popliteal stent occlusion
-not wet gangrene
-can cont abx for now - dc on augmentin for 5 additional days (day 2)
-local care
-She may weight bear in a surgical shoe
�Close podiatry follow-up
� High risk for toe loss
� Extremity elevation
#Peripheral Arterial Disease s/p RLE Stent
#In-stent stenosis of right SFA
--EVON with significant worsening in PAD and distal popliteal stent occlusion
-POD 1 Right lower extremity angiogram, Viabahn stent to in-stent stenosis of right SFA into above-knee pop
-stent placed
-transition back to NOAC
-asa
�Follow-up podiatry, vascular outpatient
Paroxysmal Atrial Fibrillation
-Continue metoprolol for rate control
#Febrile episode
Has defervesced on its own
� Most likely reactive/postop febrile episode
� Continue to monitor, can transition to Augmentin
� Final cultures negative
#Acute on chronic anemia
� Unclear if acute blood loss
� Trend CBC
# Iron labs
#Transaminitis
� Suspect secondary to antibiotics
� Right upper quadrant sono: Hepatic steatosis. Left nephrolithiasis.
� Nontender to examination
#Left nephrolithiasis.
-f/u outpt
#Left Thalamic Stroke with Residual Expressive Aphasia and Cognitive Impairment
-Continue Namenda
-Monitor for mood/behavior changes
-Per Family patient does not respond well to benzodiazepines and family asks to avoid benzos during hospitalization
Diabetes Mellitus, Type II
-Hold oral meds
-Monitor sugars and continue coverage insulin
Diabetes Neuropathy
-Continue duloxetine
Essential Hypertension
-Continue lisinopril and metoprolol with hold parameters
Hyperlipidemia
-Continue atorvastatin
Asthma, no acute exacerbation
-Patient maintained on Dupixent as outpatient
Anemia, Chronic
-ctm
Peptic Ulcer Disease
-Continue Protonix
DVT proph: Heparin drip
Code Status: Full Code
Total time spent on today's encounter was 53 minutes which included time spent in counseling the patient/family regarding diagnosis and treatment plan as listed above, goals of care, and symptom management. Case was discussed with nursing staff,
specialists, and care coordinators/case management. All labs and imaging personally reviewed by me. Remainder the time spent in detailed review of previous records, lab data, imaging, and other medical provider documentation.
Anticipated Discharge: Within 24 hours
Subjective/Interval History
-
Date of Service: January 27, 2024
No acute events overnight, remains afebrile for over 24 hours
Objective Data
-
Labs:
Laboratory Results
01/27/24 01/27/24
05:34 09:02
WBC 6.6
Hgb 7.6 L 7.6 L
Hct 24.0 L
Plt Count 221
Sodium 137
Potassium 4.1
Chloride 105
Carbon Dioxide 26
BUN 9
Creatinine 0.7
Glucose 190 H
Calcium 9.8
Total Bilirubin 0.5
AST 22
ALT 69 H
Alkaline Phosphatase 157 H
Vital Signs:
Vital Signs
Temp Pulse Resp BP Pulse Ox
98.8 F 91 20 99/48 94
01/27/24 08:00 01/27/24 08:17 01/27/24 08:00 01/27/24 08:17 01/27/24 08:18
I&O
01/26/24 01/27/24 01/28/24
06:59 06:59 06:59
Intake Total 1916 / 1916 1140 / 1140
Output Total 250 / 250
Balance 1666 / 1666 1140 / 1140
Review of Systems
-
History Source: Patient
All other systems: Not reviewed unless documented
Data Reviewed
-
Diagnostic Radiology: Report Reviewed by me
Ultrasound: Report Reviewed by me
Labs: Labs Reviewed by me
[2024-01-27 14:03] LABS: Iron 25 ug/dl (37-170)
[2024-01-27 14:13] LABS: Percent Saturation 7 % (20-50); Total Iron Binding Capacity 325 ug/dl (265-497)
[2024-01-27 15:54] VITALS: BP 140/95
[2024-01-27 16:12] LABS: Ferritin 28.6 ng/ml (11.1-264.0)
[2024-01-27] MEDS: CYMBALTA DELAYED RELEASE 30 MG PO (17:03)
[2024-01-27] MEDS: TOPROL XL 25 MG PO (17:03)
[2024-01-27] MEDS: LIPITOR 40 MG PO (17:04)
[2024-01-27 17:08] LABS: Glucose - Point of Care 254 mg/dl (70-99)
[2024-01-27] MEDS: NOVOLOG FLEXPEN-LOW RESISTANCE 3 UNITS SC (17:16)
[2024-01-27 21:50] LABS: Glucose - Point of Care 243 mg/dl (70-99)
[2024-01-27 23:08] VITALS: BP 136/75
[2024-01-28 05:20] LABS: ALT (SGPT) 55 U/L (0-35); AST (SGOT) 19 U/L (14-36); Albumin 3.2 g/dl (3.5-5.0); Alkaline Phosphatase 148 U/L (38-126); Blood Urea Nitrogen 12 mg/dl (7-17); Calcium 9.9 mg/dl (8.4-10.2); Carbon Dioxide 24 mmol/L (22-30); Chloride 105 mmol/L (98-107); Estimated Creatinine Clearance 107 ml/min; Glucose 245 mg/dl (70-99); Potassium 4.3 mmol/L (3.5-5.1); Sodium 135 mmol/L (135-145); Total Bilirubin 0.4 mg/dl (0.2-1.3); Total Protein 5.7 g/dl (6.3-8.2); eGFR > 60.00
[2024-01-28 05:49] LABS: Hematocrit 25.2 % (37.0-47.0); Mean Corp Hgb Conc. 31.7 g/dL (33.0-37.0); Mean Corpuscular Hgb 23.1 pg (27.0-31.0); Mean Corpuscular Volume 72.6 fL (81.0-99.0); Platelet Count 228 10^3/uL (130-400); Red Blood Cell Count 3.47 10^6/uL (4.20-5.40); Red Cell Dist. Width 16.7 % (11.5-14.5); White Blood Cell Count 6.4 10^3/uL (4.8-10.8)
[2024-01-28 07:05] VITALS: BP 165/88
[2024-01-28 07:18] LABS: Glucose - Point of Care 229 mg/dl (70-99)
[2024-01-28] MEDS: AUGMENTIN 875 MG/125 MG 1 TABLET PO (08:53)
[2024-01-28] MEDS: ZESTRIL 10 MG PO (08:54)
[2024-01-28] MEDS: NAMENDA 10 MG PO (08:54)
[2024-01-28] MEDS: ASPIR LOW (ENTERIC COATED) 81 MG PO (08:54)
[2024-01-28] MEDS: ELIQUIS 5 MG PO (08:54)
[2024-01-28] MEDS: PROTONIX 20 MG PO (08:55)
[2024-01-28] MEDS: NOVOLOG FLEXPEN-LOW RESISTANCE 2 UNITS SC (08:57)
--- NOTE | 2024-01-28 11:10 | CM ---
Patient seen at bedside with daughter also present. Patient states she is eager for discharge, awaiting physician assessment. Plan is home with [facility] to follow. CM called to weekend number to update regarding possible discharge. VM left. CM will
continue to follow for discharge planning needs.
Plan; home with family support and [facility]
--- NOTE | 2024-01-28 11:51 | W.PN.HOSP.TC ---
Addendum entered and electronically signed by Josue Gomes MD 02/07/24 17:05:
Cellulitis of right foot and right hallux
Addendum entered and electronically signed by Josue Gomes MD 01/28/24 14:36:
[id number]
Original Note:
Today's Communication/Plan
-
Continue Augmentin
Start ferrous sulfate
Follow podiatry, vascular, PCP closely
Follow-up hemoglobin in 3 to 5 days
Assessment / Plan
Assessment / Plan
Physical Exam
General: Well Developed and Well Nourished
HEENT: Anicteric and Moist mucous membranes
Respiratory: Clear and Non Labored Respirations
Cardiac: S1/S2 and Regular Rhythm
GI: Soft and Non Tender
Musculoskeletal: No Clubbing and No Cyanosis
Skin: Warm, Dry and Other (Moderate erythema right great toe extending); Warm; hallux has some dry ischemic changes at the distal aspect of the toe distal tot he nail plate. No fluctuance or drainage from the site. not tender touch.
Neuro: Awake, Alert and Other (Moves all four extremities appropriate)
Psych: Calm
#Right hallux Cellulitis
#Ischemic changes distal hallux
-Podiatry and ID were consulted
-EVON with significant worsening in PAD and distal popliteal stent occlusion
-not wet gangrene
-can cont abx for now - dc on augmentin for 5 additional days (day 3)
-local care
-She may weight bear in a surgical shoe
�Close podiatry follow-up
� High risk for toe loss
� Extremity elevation
#Peripheral Arterial Disease s/p RLE Stent
#In-stent stenosis of right SFA
--EVON with significant worsening in PAD and distal popliteal stent occlusion
-s/p Right lower extremity angiogram, Viabahn stent to in-stent stenosis of right SFA into above-knee pop
-stent placed
-transition back to NOAC
-asa
�Follow-up podiatry, vascular outpatient
Paroxysmal Atrial Fibrillation
-Continue metoprolol for rate control
#Febrile episode
Has defervesced on its own
� Most likely reactive/postop febrile episode
� Continue to monitor, can transition to Augmentin
� Final cultures negative
#Chronic Anemia
-Iron deficiency anemia
�Start ferrous sulfate
#Transaminitis
� Suspect secondary to antibiotics
� Right upper quadrant sono: Hepatic steatosis. Left nephrolithiasis.
� Nontender to examination
#Left nephrolithiasis.
-f/u outpt
#Left Thalamic Stroke with Residual Expressive Aphasia and Cognitive Impairment
-Continue Namenda
-Monitor for mood/behavior changes
-Per Family patient does not respond well to benzodiazepines and family asks to avoid benzos during hospitalization
Diabetes Mellitus, Type II
�Continue home regimen
-Monitor sugars and continue coverage insulin
Diabetes Neuropathy
-Continue duloxetine
Essential Hypertension
-Continue lisinopril and metoprolol with hold parameters
Hyperlipidemia
-Continue atorvastatin
Asthma, no acute exacerbation
-Patient maintained on Dupixent as outpatient
Anemia, Chronic
-ctm
Peptic Ulcer Disease
-Continue Protonix
DVT proph: Eliquis
Code Status: Full Code
More than 30 minutes spent in discharge including
Final examination of the patient
Summarizing hospital stay
Instructions for continuing care to all relevant caregivers
Preparation of discharge records, prescriptions, and referral forms
Total time spent (36 in minutes):
Anticipated Discharge: Today
Subjective/Interval History
-
Date of Service: January 28, 2024
No acute events
Objective Data
-
Labs:
Laboratory Results
01/28/24 01/28/24
04:05 05:36
WBC 6.4
Hgb 8.0 L
Hct 25.2 L
Plt Count 228
Sodium 135
Potassium 4.3
Chloride 105
Carbon Dioxide 24
BUN 12
Creatinine 0.6
Glucose 245 H
Calcium 9.9
Total Bilirubin 0.4
AST 19
ALT 55 H
Alkaline Phosphatase 148 H
Vital Signs:
Vital Signs
Temp Pulse Resp BP Pulse Ox
98.6 F 80 18 165/88 97
01/28/24 07:05 01/28/24 08:54 01/28/24 07:05 01/28/24 08:54 01/28/24 07:05
I&O
01/27/24 01/28/24 01/29/24
06:59 06:59 06:59
Intake Total 1140 / 1140 800 / 800
Balance 1140 / 1140 800 / 800
Review of Systems
-
History Source: Patient
All other systems: Not reviewed unless documented
Data Reviewed
-
Diagnostic Radiology: Report Reviewed by me
Ultrasound: Report Reviewed by me
Labs: Labs Reviewed by me
--- NOTE | 2024-01-28 11:57 | W.DS.TRANS ---
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
-
Discharge Instructions:
Discharge Diagnosis/Procedures #Right lower extremity angiogram, Viabahn stent
to in-stent stenosis of right SFA into above-
knee pop
#Right hallux Cellulitis
#Ischemic changes distal hallux
Diet Low Cholesterol,Low Fat,Diabetic, Carb
Controlled
Activity As tolerated
Additional Activity Continue to keep toe dry, plan to monitor for
demarcation - monitoring for drainage/pus and
please notify as soon as possible if found
Lower extremity elevation to the level of the
heart to prevent ongoing edema
Blood Work CBC (HgB) and LFTs in 5 days with PCP
Others Tests Your follow-up arterial ultrasound is scheduled
here at [facility] on 02/26/2024 at 8 AM
Follow-up with gastroenterology for regular
screening/colonoscopy-has iron deficiency anemia
, started on ferrous sulfate
Instructions:
Stand-Alone Forms:
Changes to Home Medications: Yes
Discharge Medications:
DC Medications w/original date entered in [facility]
atorvastatin 40 mg tablet 40 mg PO QPM High cholesterol 05/21/21
metformin 1,000 mg tablet 1,000 mg PO BID Diabetes 05/21/21
pantoprazole 20 mg tablet,delayed release (Protonix) 20 mg PO DAILY Gastrointestinal issue 05/21/21
duloxetine 30 mg capsule,delayed release 30 mg PO QPM Mental Health/Anxiety 10/25/21
dupilumab 300 mg/2 mL subcutaneous pen injector (Dupixent) 300 mg SC Q2W Lung/breathing issues 10/25/21
lisinopril 10 mg tablet 10 mg PO DAILY Blood pressure 10/25/21
apixaban 5 mg tablet (Eliquis) 5 mg PO BID Blood Clot Prevention/Tx 03/23/23
memantine 10 mg tablet 10 mg PO BID memory impairment 03/23/23
metoprolol succinate 25 mg tablet,extended release 24 hr (Toprol XL) 25 mg PO QPM Blood Pressure 03/23/23
aspirin 81 mg tablet,delayed release 81 mg PO DAILY #30 tabs 03/29/23
nitrofurantoin macrocrystal 50 mg capsule 50 mg PO QPM 12/19/23
glipizide 5 mg tablet 5 mg PO DAILY Gastrointestinal Issue 01/24/24
acetaminophen 325 mg tablet 650 mg (2 x 325 mg) PO Q4HPRN PRN mild pain or temp > 100.4 F #240 tabs 01/28/24
amoxicillin 875 mg-potassium clavulanate 125 mg tablet 1 tab PO Q12 3 days #6 tabs 01/28/24
ferrous sulfate 325 mg (65 mg iron) tablet 325 mg PO Q48H #30 tabs 01/28/24
Home Medication Changes
acetaminophen 325 mg tablet 650 mg (2 x 325 mg) PO Q4HPRN PRN mild pain or temp > 100.4 F #240 tabs 01/28/24
amoxicillin 875 mg-potassium clavulanate 125 mg tablet 1 tab PO Q12 3 days #6 tabs 01/28/24
ferrous sulfate 325 mg (65 mg iron) tablet 325 mg PO Q48H #30 tabs 01/28/24
Pending Results: No
[2024-01-28 12:29] LABS: Glucose - Point of Care 266 mg/dl (70-99)
[2024-01-28] MEDS: NOVOLOG FLEXPEN-LOW RESISTANCE 3 UNITS SC (12:50)
[2024-01-28 14:25] VITALS: BP 167/83
--- NOTE | 2024-01-29 10:33 | PN.CDI ---
CDI
- -
CDI:
Physician Documentation Request
Admit Date: 01/23/24 23:28
Dear Doctor Mireya,
Clinical Indicators:
Patient admitted with in-stent stenosis of right SFA.
01/22 ED Report, 'Cellulitis with red streak going into the foot'
01/23 Podiatry Consult, 'Yesterday she returned to the office with her son due to worsening redness of the right foot extending from the great toe...Right foot cellulitis'
01/25 PN, 'Right hallux Cellulitis' PE: Moderate erythema right great toe extending
Based on the above, could you clarify in the progress notes, the appropriate diagnosis, if significant, that supports the above abnormalities and additional evaluation, monitoring and/or treatment rendered:
Cellulitis of right foot and right hallux
Cellulitis of right hallux only
Other
Use of terms such as suspected, likely, concern for, or probable (associated with a specific diagnosis that is being evaluated, monitored, or treated as if it exists) are acceptable and can be coded in the inpatient setting, when documented at the
time of discharge.
Thank you,
Genevieve Truong RN BSN
CDI Specialist
available via tiger text
Please use your independent medical judgment in providing your response.
== END 2024-01-28 14:55 | disposition home health service (06) | DRG 253 ==
LOC: 2 NORTH 23:28
PROVIDERS: Nurse Practitioner; Nurse Practitioner Gerontology; Physician Assistant Medical; Student in an Organized Health Care Education/Training Program; ADMITTING PHYSICIAN Hospitalist; ATTENDING PHYSICIAN Internal Medicine; CONSULT PHYSICIAN Podiatrist; EMERGENCY PHYSICIAN Emergency Medicine; FAMILY PHYSICIAN Family Medicine; OTHER PHYSICIAN Internal Medicine Infectious Disease; OTHER PHYSICIAN Surgery Vascular Surgery
PROC: 047K3DZ Dilation of Right Femoral Artery with Intraluminal Device, Percutaneous Approach (ICD-10-PCS; 2024-01-25)
PROC: B41D1ZZ Fluoroscopy of Aorta and Bilateral Lower Extremity Arteries using Low Osmolar Contrast (ICD-10-PCS; 2024-01-25)
DX: T82.856A Stenosis of peripheral vascular stent, initial encounter (principal); L03.115 Cellulitis of right lower limb; E11.51 Type 2 diabetes mellitus with diabetic peripheral angiopathy without gangrene; L03.031 Cellulitis of right toe; I69.320 Aphasia following cerebral infarction; I48.0 Paroxysmal atrial fibrillation; I70.221 Atherosclerosis of native arteries of extremities with rest pain, right leg; I25.10 Atherosclerotic heart disease of native coronary artery without angina pectoris; I69.318 Other symptoms and signs involving cognitive functions following cerebral infarction; I10 Essential (primary) hypertension; D50.9 Iron deficiency anemia, unspecified; E11.42 Type 2 diabetes mellitus with diabetic polyneuropathy; Y71.2 Prosthetic and other implants, materials and accessory cardiovascular devices associated with adverse incidents; R50.82 Postprocedural fever; R74.01 Elevation of levels of liver transaminase levels; T36.8X5A Adverse effect of other systemic antibiotics, initial encounter; K76.0 Fatty (change of) liver, not elsewhere classified; N20.0 Calculus of kidney; E78.5 Hyperlipidemia, unspecified; K22.2 Esophageal obstruction; K21.9 Gastro-esophageal reflux disease without esophagitis; J45.909 Unspecified asthma, uncomplicated; F32.A Depression, unspecified; E21.3 Hyperparathyroidism, unspecified; Z86.14 Personal history of Methicillin resistant Staphylococcus aureus infection; Z79.84 Long term (current) use of oral hypoglycemic drugs; Z79.82 Long term (current) use of aspirin; Z79.01 Long term (current) use of anticoagulants; Z87.11 Personal history of peptic ulcer disease; Z89.421 Acquired absence of other right toe(s)
CPT/HCPCS: 37226; 73630; 75625; 75716; 76700; 80048; 80053; 82728; 82962; 83036; 83540; 83550; 83605; 85018; 85025; 85027; 85610; 85730; 87040; 93458; 93922; 93925; 97116; 97162; 97166; 99285; C1725; C1760; C1769; C1874; C1887; C1894

== ENCOUNTER → 2024-03-01 12:41 | Outpatient (REF) | payer OTHER, SELFPAY | LOC: RAD 12:41 | PROVIDERS: ATTENDING PHYSICIAN Registered Nurse; FAMILY PHYSICIAN Family Medicine; REFERRING PHYSICIAN Surgery Vascular Surgery | DX: I73.9 Peripheral vascular disease, unspecified (principal) | CPT/HCPCS: 93922; 93925 ==